=== PATIENT | female | born 1990 | race Caucasian/White ===

== ENCOUNTER 2020-10-30 13:33 | Outpatient (REF) | payer OTHER, SELFPAY ==
[2020-11-01 13:31] LABS: SARS-COV-2 PCR UMBRL Not Detected
[2020-11-07 10:14] LABS: SARS-COV-2 PCR UMBRL NEGATIVE
[2020-11-14 08:50] LABS: SARS-COV-2 PCR UMBRL NEGATIVE
[2020-11-21 08:51] LABS: SARS-COV-2 PCR UMBRL NEGATIVE
[2020-11-28 09:59] LABS: SARS-COV-2 PCR UMBRL NEGATIVE
[2020-12-06 08:49] LABS: SARS-COV-2 PCR UMBRL NEGATIVE
[2020-12-12 13:21] LABS: SARS-COV-2 PCR UMBRL NEGATIVE
[2020-12-19 08:59] LABS: SARS-COV-2 PCR UMBRL NEGATIVE
[2020-12-25 09:04] LABS: SARS-COV-2 PCR UMBRL NEGATIVE
[2021-01-02 08:51] LABS: SARS-COV-2 PCR UMBRL NEGATIVE
[2021-01-08 09:37] LABS: SARS-COV-2 PCR UMBRL NEGATIVE
[2021-01-16 09:36] LABS: SARS-COV-2 PCR UMBRL NEGATIVE
[2021-01-24 08:26] LABS: SARS-COV-2 PCR UMBRL NEGATIVE
[2021-01-29 08:06] LABS: SARS-COV-2 PCR UMBRL NEGATIVE
[2021-02-06 07:34] LABS: SARS-COV-2 PCR UMBRL NEGATIVE
[2021-02-14 07:52] LABS: SARS-COV-2 PCR UMBRL NEGATIVE
[2021-02-23 08:23] LABS: SARS-COV-2 PCR UMBRL NEGATIVE
[2021-02-28 12:33] LABS: SARS-COV-2 PCR UMBRL NEGATIVE
[2021-03-13 09:21] LABS: SARS-COV-2 PCR UMBRL NEGATIVE
[2021-03-24 08:51] LABS: SARS-COV-2 PCR UMBRL NEGATIVE
[2021-03-28 07:51] LABS: SARS-COV-2 PCR UMBRL NEGATIVE
[2021-04-18 08:26] LABS: SARS-COV-2 PCR UMBRL NEGATIVE
[2021-04-26 12:17] LABS: SARS-COV-2 PCR UMBRL NEGATIVE
[2021-05-03 07:43] LABS: SARS-COV-2 PCR UMBRL NEGATIVE
[2021-05-09 08:33] LABS: SARS-COV-2 PCR UMBRL NEGATVE
[2021-05-20 09:53] LABS: SARS-COV-2 PCR UMBRL NEGATIVE
[2021-05-21 08:01] LABS: SARS-COV-2 PCR UMBRL NEGATIVE
[2021-05-28 09:23] LABS: SARS-COV-2 PCR UMBRL NEGATIVE
[2021-06-05 07:51] LABS: SARS-COV-2 PCR UMBRL NEGATIVE
[2021-06-12 07:28] LABS: SARS-COV-2 PCR UMBRL NEGATIVE
== END 2020-10-30 13:34 | disposition home or self-care (01) ==
LOC: HO.EMPCOV 13:33
PROVIDERS: Visit Provider Internal Medicine
DX: Z20.822 Contact with and (suspected) exposure to COVID-19 (principal)
CPT/HCPCS: 36415; U0003

== ENCOUNTER 2020-11-14 09:04 | Outpatient (REF) | payer OTHER, SELFPAY ==
[2020-11-14 11:12] LABS: MANUAL DIFF FLAG NO
[2020-11-14 11:16] LABS: Basophils Percent Auto 0.6 % (0-2); Eosinophils Absolute Auto 0.1 X10*3/uL (0.0-0.4); Eosinophils Percent Auto 1.7 % (0-4); Hematocrit 42.5 % (37-47); Hemoglobin 13.8 g/dl (12.0-16.0); Lymphocytes Absolute Auto 1.3 X10*3/uL (1.2-4.9); Lymphocytes Percent Auto 36.9 % (20-40); Mean Corpuscular HGB Conc 32.5 g/dl (31.0-35.0); Mean Corpuscular Hemoglobin 27.4 pg (27.0-33.0); Mean Corpuscular Volume 84.5 fL (80-98); Mean Platelet Volume 11.8 fL (9.4-12.3); Monocytes Absolute Auto 0.3 X10*3/uL (0.1-1.2); Monocytes Percent Auto 9.7 % (2-11); Neutrophils Absolute Auto 1.8 X10*3/uL (2.0-8.3); Neutrophils Percent Auto 51.1 % (45-73); Platelet Count 155 X10*3/uL (160-400); Red Blood Count 5.03 X10*6/uL (4.20-5.50); Red Cell Distribution Width 13.1 % (11.0-16.0); White Blood Count 3.5 X10*3/uL (4.8-10.8)
[2020-11-14 11:31] LABS: Anion Gap 11 (12-20); Blood Urea Nitrogen 13 mg/dL (9-16); Carbon Dioxide 26 mmol/L (22-29); Chloride 105 mmol/L (96-108); Cholesterol 153 mg/dL; Estimated Glomerular Filt Rate > 60; Glucose Fasting 86 mg/dL (60-99); HDL Cholesterol 58 mg/dL; LDL Cholesterol Calculated 88 mg/dl; Sodium 138 mmol/L (135-145); Triglycerides 39 mg/dL
== END 2020-11-14 09:05 | disposition home or self-care (01) ==
LOC: HO.HMGCLDS 09:04
PROVIDERS: PCP Internal Medicine; Visit Provider Internal Medicine
DX: Z00.00 Encounter for general adult medical examination without abnormal findings (principal); Z01.419 Encounter for gynecological examination (general) (routine) without abnormal findings; I10 Essential (primary) hypertension
CPT/HCPCS: 36415; 80048; 80061; 85025

== ENCOUNTER 2020-11-22 11:46 | Outpatient (REF) | payer OTHER, SELFPAY ==
--- NOTE | ~2020-11-22 | XR_ITS ---
EXAMINATION: XR SHOULDER, RIGHT CLINICAL INFORMATION: Right shoulder pain COMPARISON: None TECHNIQUE: Three views of the right shoulder. FINDINGS: No fracture or dislocation. The glenohumeral joint is well aligned. The joint space is maintained. The acromioclavicular joint is intact. The visualized lung is clear. The visualized ribs are intact. XR/XR shoulder RT min 2V IMPRESSION: Normal right shoulder.
--- NOTE | ~2020-11-22 | XR_ITS ---
EXAMINATION: XR CERVICAL SPINE CLINICAL INFORMATION: Cervicalgia COMPARISON: None TECHNIQUE: 5 views of the cervical spine were obtained. FINDINGS: There are no prevertebral soft tissue or bony abnormalities demonstrated. No compression fractures or subluxations are identified. Alignment is maintained at the atlanto-axial articulation. The disc spaces are preserved. No endplate changes are seen. The prevertebral soft tissues are normal. The foramina are patent. Lung apices are clear. XR/XR cervical spine 4V IMPRESSION: Normal appearance of the cervical spine.
== END 2020-11-22 11:47 | disposition home or self-care (01) ==
LOC: HO.HMGCX 11:46
PROVIDERS: PCP Internal Medicine; Visit Provider Internal Medicine
DX: M54.9 Dorsalgia, unspecified (principal); M25.511 Pain in right shoulder; M54.2 Cervicalgia
CPT/HCPCS: 72050; 73030

== ENCOUNTER 2021-02-11 11:09 | Outpatient (REF) | payer OTHER, SELFPAY ==
[2021-02-13 19:46] LABS: TS Negative Control Passed; TS Panel A 0; TS Panel B 1; TS Positive Control Passed; TSpotTB Negative (SeeBelow)
== END 2021-02-11 11:10 | disposition home or self-care (01) ==
LOC: HO.HMGCLDS 11:09
PROVIDERS: PCP Internal Medicine; Visit Provider Internal Medicine
DX: Z11.1 Encounter for screening for respiratory tuberculosis (principal)
CPT/HCPCS: 36415; 86481

== ENCOUNTER 2021-03-20 07:07 | Outpatient (REF) | payer OTHER, SELFPAY ==
[2021-03-20 12:23] LABS: ~Hepatitis B Surface Antibody REACTIVE (Nonreactive)
[2021-03-21 17:26] LABS: Rubeola IgG (Measles) >300.00 AU/mL
== END 2021-03-20 07:08 | disposition home or self-care (01) ==
LOC: HO.HMGCLDS 07:07
PROVIDERS: PCP Internal Medicine; Visit Provider Internal Medicine
DX: Z01.84 Encounter for antibody response examination (principal)
CPT/HCPCS: 36415; 86706; 86735; 86762; 86765; 86787

== ENCOUNTER 2022-11-20 09:56 | Outpatient (REF) | payer OTHER, SELFPAY ==
[2022-11-22 19:49] LABS: TS Negative Control Passed; TS Panel A 0; TS Panel B 0; TS Positive Control Passed; TSpotTB Negative (Negative)
== END 2022-11-20 09:57 | disposition home or self-care (01) ==
LOC: HO.HMGCLDS 09:56
PROVIDERS: PCP Internal Medicine; Visit Provider Internal Medicine
DX: Z11.1 Encounter for screening for respiratory tuberculosis (principal)
CPT/HCPCS: 36415; 86481

== ENCOUNTER 2022-12-01 11:10 | Outpatient (REF) | payer OTHER, SELFPAY ==
[2022-12-01 11:57] LABS: Influenza A PCR NEGATIVE (Negative); Influenza B PCR NEGATIVE (Negative); Resp Syncy Virus RNA Qual PCR NEGATIVE (Negative); SARS COV2 PCR INHOUSE NEGATIVE (Negative)
== END 2022-12-01 11:11 | disposition home or self-care (01) ==
LOC: HO.LNP 11:10
PROVIDERS: Visit Provider Physician Assistant
DX: Z20.822 Contact with and (suspected) exposure to COVID-19 (principal); B34.9 Viral infection, unspecified
CPT/HCPCS: 0241U

== ENCOUNTER → 2023-01-15 10:57 | Outpatient (BNVA) | payer OTHER, SELFPAY | PROVIDERS: PCP Internal Medicine; Visit Provider Advanced Practice Midwife | DX: Z13.89 Encounter for screening for other disorder (principal) ==

== ENCOUNTER 2023-02-20 13:20 | Outpatient (REF) | payer OTHER, SELFPAY ==
[2023-02-20 14:07] LABS: MANUAL DIFF FLAG NO
[2023-02-20 14:15] LABS: Basophils Percent Auto 0.5 % (0-2); Eosinophils Percent Auto 1.1 % (0-4); Hematocrit 32.7 % (37.0-47.0); Hemoglobin 9.7 g/dl (12.0-16.0); Imm Gran Abs Auto 0.01 X10*3/uL (0.00-0.03); Imm Gran Pct Auto 0.3 % (0.0-0.4); Lymphocytes Absolute Auto 1.3 X10*3/uL (1.2-4.9); Lymphocytes Percent Auto 33.8 % (20-40); Mean Corpuscular HGB Conc 29.7 g/dl (31.0-35.0); Mean Corpuscular Hemoglobin 20.3 pg (27.0-33.0); Mean Corpuscular Volume 68.6 fL (80.0-98.0); Mean Platelet Volume 11.1 fL (9.4-12.3); Monocytes Absolute Auto 0.4 X10*3/uL (0.1-1.2); Monocytes Percent Auto 9.5 % (2-11); Neutrophils Percent Auto 54.8 % (45-73); Platelet Count 171 X10*3/uL (160-400); Red Blood Count 4.77 X10*6/uL (4.20-5.50); Red Cell Distribution Width 18.8 % (11.0-16.0); White Blood Count 3.7 X10*3/uL (4.8-10.8)
[2023-02-20 14:41] LABS: Alanine Aminotransferase 22 U/L (0-31); Alkaline Phosphatase 63 U/L (39-117); Anion Gap 11 (12-20); Aspartate Amino Transferase 18 U/L (5-31); Bilirubin Total 0.8 mg/dL (0.0-1.0); Blood Urea Nitrogen 9 mg/dL (9-16); Calcium 8.9 mg/dL (8.4-10.2); Carbon Dioxide 24 mmol/L (22-29); Chloride 107 mmol/L (96-108); Cholesterol 137 mg/dL; Estimated Glomerular Filt Rate > 60; Glucose Fasting 82 mg/dL (60-99); HDL Cholesterol 57 mg/dL; LDL Cholesterol Calculated 75 mg/dl; Magnesium 1.9 mg/dL (1.6-2.6); Potassium 3.7 mmol/L (3.3-5.1); Sodium 138 mmol/L (135-145); Total Protein 6.7 g/dL (6.5-8.0); Triglycerides 26 mg/dL
[2023-02-20 15:10] LABS: Folate 13.5 ng/mL (> or = 4.0); TSH reflex Free T4 1.37 uIU/mL (0.32-4.0); Vitamin B12 405 pg/mL (200-900); Vitamin D 25-OH Total 18.2 ng/mL (>30)
== END 2023-02-20 13:21 | disposition home or self-care (01) ==
LOC: HO.HMGCLDS 13:20
PROVIDERS: PCP Internal Medicine; Visit Provider Internal Medicine
DX: Z00.01 Encounter for general adult medical examination with abnormal findings (principal); G47.62 Sleep related leg cramps
CPT/HCPCS: 36415; 80053; 80061; 82306; 82607; 82746; 83735; 84443; 85025

== ENCOUNTER 2023-03-31 15:45 | Outpatient (REF) | payer OTHER, SELFPAY ==
[2023-04-01 14:28] LABS: CT PCR NOT DETECTED (Not Detect.); NG PCR NOT DETECTED (Not Detect.)
[2023-04-02 09:20] LABS: BV Int Neg Control Negative (Negative); BV Int Pos Control Positive (Positive)
== END 2023-03-31 15:46 | disposition home or self-care (01) ==
LOC: HO.LNP 15:45
PROVIDERS: PCP Internal Medicine; Visit Provider Advanced Practice Midwife
DX: O21.9 Vomiting of pregnancy, unspecified (principal); Z20.2 Contact with and (suspected) exposure to infections with a predominantly sexual mode of transmission
CPT/HCPCS: 0353U; 81003; 81025; 87480; 87510; 87660

== ENCOUNTER 2023-03-31 21:47 | Emergency (ER) | payer OTHER, SELFPAY ==
[2023-03-31 22:18] VITALS: BP 112/74; PULSE 70; RESP 18; TEMP 36.9; O2SAT 98; BMI 20.7
[2023-03-31 22:57] LABS: Hematocrit 30.2 % (37.0-47.0); Mean Corpuscular HGB Conc 29.8 g/dl (31.0-35.0); Mean Corpuscular Hemoglobin 20.2 pg (27.0-33.0); Mean Corpuscular Volume 67.9 fL (80.0-98.0); Mean Platelet Volume 10.6 fL (9.4-12.3); Platelet Count 167 X10*3/uL (160-400); Red Blood Count 4.45 X10*6/uL (4.20-5.50); Red Cell Distribution Width 18.2 % (11.0-16.0); White Blood Count 5.4 X10*3/uL (4.8-10.8)
[2023-03-31 23:15] LABS: Alanine Aminotransferase 20 U/L (0-31); Albumin Level 3.7 g/dL (3.5-5.0); Alkaline Phosphatase 51 U/L (39-117); Anion Gap 8 (12-20); Aspartate Amino Transferase 17 U/L (5-31); Bilirubin Total 0.2 mg/dL (0.0-1.0); Blood Urea Nitrogen 13 mg/dL (9-16); Calcium 8.8 mg/dL (8.4-10.2); Carbon Dioxide 24 mmol/L (22-29); Chloride 108 mmol/L (96-108); Creatinine Clr Calc Pharmacy 135.7; Estimated Glomerular Filt Rate > 60; Glucose Random 83 mg/dL (60-115); Lipase 17 U/L (8-78); Potassium 3.7 mmol/L (3.3-5.1); Sodium 136 mmol/L (135-145); Total Protein 6.8 g/dL (6.5-8.0)
[2023-03-31 23:39] LABS: Appearance Urine Clear; Color Urine Yellow; Glucose Urine UA Negative (Negative); Leukocyte Esterase Urine Negative (Negative); Nitrite Urine Negative (Negative); Urine Blood Negative (Negative); Urine Ketones Negative (Negative); Urine Protein Negative (Neg-Trace)
[2023-03-31 23:43] LABS: HCG Quantitative > 225000 mIU/mL
[2023-04-01 00:01] VITALS: BP 111/74; PULSE 77; RESP 17; TEMP 36.7; O2SAT 99
--- NOTE | 2023-04-01 00:53 | PC.NURSE ---
patient in bed with eyes open patient vitals are stable at this time patient will be given patient will then be in the process of being discharged
[2023-04-01] MEDS: Magnesium Hydrox/Alum Hydrox 30 ML ORAL.SUSP PO (00:58)
[2023-04-01] MEDS: Ondansetron ODT 4 MG TAB.RAPDIS TRANSLINGU (00:58)
[2023-04-01] MEDS: Lidocaine HCl Viscous 2 % 15 ML SOLUTION MUCOUS MEM (00:58)
--- NOTE | 2023-04-01 00:59 | PC.NURSE ---
patient received the medication with no issues doctor will be notified
--- NOTE | 2023-04-01 01:00 | ED_ITS ---
HPI - General Adult General Chief complaint: Abdominal Pain Stated complaint: fishing line winding machine operator called, wants blood work/ ultrasound? Time Seen by Provider: 04/01/23 00:43 Source: patient, RN notes reviewed and old records reviewed Mode of arrival: ambulatory Limitations: no limitations History of Present Illness HPI narrative: 32-year-old female presents for evaluation of abdominal pain. Patient reports that her pain started 5 days ago in the left upper abdomen She reports at the time she was having lots of vomiting This has since resolved Patient reports her pain is worse at night She describes as stabbing in nature She saw her fishing line winding machine operator today as she is reports approximately 7-8 weeks She had a pelvic examination done and wanted the patient to be evaluated for other causes of abdominal pain as ?she said my pain was too high to be related to the baby. ? Her pain is a 5/10 Denies any vaginal bleeding or discharge Related Data Home Medications Medication Instructions Recorded Confirmed acetaminophen 500 mg tablet 1,000 mg PO Q6H PRN 02/22/22 01/20/23 (Tylenol Extra Strength) Previous Rx's Medication Instructions Recorded fexofenadine 180 mg tablet 180 mg PO Q24H #30 tabs 08/06/22 (Allergy Relief (fexofenadine)) pyridoxine (vitamin B6) 25 mg 25 mg PO TID PRN nausea and 03/31/23 tablet (Vitamin B-6) vomiting #90 tabs Allergies Allergy/AdvReac Type Severity Reaction Status Date / Time cyclobenzaprine AdvReac Unknown dry mouth Verified 03/31/23 15:55 and vertigo Review of Systems Cardiovascular: Cardiovascular: Denies chest pain and Denies dyspnea Respiratory: Respiratory: Denies cough and Denies dyspnea Gastrointestinal: Gastrointestinal: Reports abdominal pain, Reports nausea and Denies vomiting Genitourinary: Genitourinary: Denies abnormal vaginal bleeding Comments: Denies vaginal bleeding or discharge Musculoskeletal: Musculoskeletal: Denies back pain PMFSH Past Medical History Medical History (Updated 04/01/23 @ 01:18 by Donal Lozano) Left flank pain Migraine with aura Nausea and vomiting in Nocturnal leg cramps Positive test Recurrent headache Shoulder pain, right Upper back pain on right side Upper respiratory infection with cough and congestion Surgical History No pertinent past surgical history Family History Family History Father Heart disease Mother Diabetes mellitus HTN (hypertension) CVD (cardiovascular disease) Maternal Aunt Diabetes mellitus History of CVA (cerebrovascular accident) Brother No problems noted. Brother No problems noted. Brother No problems noted. Sister No problems noted. Sister No problems noted. Social History Social History Housing: Apartment Alcohol intake: never Patient Tobacco Use Status: Never used Tobacco Smoked in Last 30 Days: No e-Cigarette/Vaping Use: Never Used Use of substances other than those prescribed or required for medical reasons: No Advance Directives: No Advance Directives Information Provided: No Patient : Yes service: No Current occupational status: employed Sexual orientation: Straight/Heterosexual Gender identity: Female Cognitive needs: No Hearing needs: No Vision needs: No Physical Exam ED Vital Signs: Vital Signs - 24 hr 03/31/23 22:18 04/01/23 00:01 Temperature 98.5 F 98.0 F Pulse Rate 70 77 Respiratory Rate 18 17 Blood Pressure 112/74 111/74 Pulse Oximetry 98 99 Oxygen Delivery Method Room Air Room Air BMI result Body Mass Index 20.7 Const General: healthy appearing, comfortable, no acute distress, alert and awake Nutritional Appearance: well nourished Orientation/consciousness: patient oriented x3 HENMT Head: Yes normocephalic and Yes atraumatic Eyes Eyelids: Yes eyelids normal Conjunctivae: conjunctivae normal Sclerae: sclerae normal Corneas: corneas normal Pupils: Equal, round and reactive pupils present EOM: EOMs intact bilaterally Neck Neck: Yes full ROM Resp Effort & Inspection: normal respiratory effort, able to speak in complete sentences and not labored Cardio Rate: regular rate Rhythm: regular rhythm GI Inspection: No distended Palpation (GI): Soft to palpation, not firm, Tenderness to palpation present (GI) in the epigastrum and in the LUQ; not suprapubicly, no guarding and not rigid Auscultation: normoactive bowel sounds Skin General skin exam: no rashes or lesions noted and elasticity normal Neuro General: patient oriented x3 Cranial nerves: Yes Equal, round and reactive pupils present and Yes Bilaterally intact EOM present Cognition (Neuro): normal cognition Extrem Other: Moving all extremities well without any obvious deformities Medications Administered Discontinued Medications Generic Name Dose Route Start Last Admin Trade Name Dalton PRN Reason Stop Dose Admin Al Hydroxide/Mg Hydroxide 30 ml 04/01/23 00:49 04/01/23 00:58 Magnesium Hydrox/Alum Hydrox 30 Ml Oral.Susp PO 04/01/23 00:50 30 ml ONCE ONE Administration Lidocaine HCl 15 ml 04/01/23 00:49 04/01/23 00:58 Lidocaine Hcl Viscous 2 % 15 Ml Solution MUCOUS MEM 04/01/23 00:50 15 ml ONCE ONE Administration Ondansetron HCl 4 mg 04/01/23 00:50 04/01/23 00:58 Ondansetron Odt 4 Mg Tab.Rapdis TRANSLINGU 04/01/23 00:51 4 mg ONCE ONE Administration Medical Decision Making Medical Decision Making [facility] Narrative: Patient presents for evaluation of left upper abdominal pain. She has tenderness left upper quadrant. Pain is worse at night. She has had the pain for 5 days. This is not a consistent story for ectopic . However I did recommend getting a pelvic exam to check for adnexal tenderness. The patient declined this as she states her fishing line winding machine operator perform this exam earlier today and told her that her pain was too far away from the baby. The patient has no risk factors for ectopic . Given the have a very low suspicion for ectopic , the patient may follow up with an outpatient pelvic ultrasound. She understands to return for new or worsening symptoms. She reported mild improvement with GI cocktail Differential Diagnosis Abdominal pain Gastritis Gastroenteritis Peptic ulcer disease Constipation Obstructive uropathy Pyelonephritis Ectopic Lab Data [facility] Lab Attestation statement: I reviewed the patient's lab results. 03/31/23 22:47 03/31/23 22:47 Labs: Lab Results 03/31/23 03/31/23 03/31/23 Range/Units 22:47 22:47 22:47 WBC 5.4 (4.8-10.8) X10*3/uL RBC 4.45 (4.20-5.50) X10*6/uL Hgb 9.0 L (12.0-16.0) g/dl Hct 30.2 L (37.0-47.0) % MCV 67.9 L (80.0-98.0) fL MCH 20.2 L (27.0-33.0) pg MCHC 29.8 L (31.0-35.0) g/dl RDW 18.2 H (11.0-16.0) % Plt Count 167 (160-400) X10*3/uL MPV 10.6 (9.4-12.3) fL Absolute Nucleated RBC 0.000 (0.0-0.012) X10*3/uL Nucleated RBC % (auto) 0.0 (0.0-0.2) /100WBC Sodium 136 (135-145) mmol/L Potassium 3.7 (3.3-5.1) mmol/L Chloride 108 (96-108) mmol/L Carbon Dioxide 24 (22-29) mmol/L Anion Gap 8 L (12-20) BUN 13 (9-16) mg/dL Creatinine 0.54 (0.5-1.4) mg/dL Estim Creat Clear Calc 135.7 Estimated GFR > 60 Random Glucose 83 (60-115) mg/dL Calcium 8.8 (8.4-10.2) mg/dL Total Bilirubin 0.2 (0.0-1.0) mg/dL AST 17 (5-31) U/L ALT 20 (0-31) U/L Alkaline Phosphatase 51 (39-117) U/L Total Protein 6.8 (6.5-8.0) g/dL Albumin 3.7 (3.5-5.0) g/dL Lipase 17 (8-78) U/L Beta HCG, Quant > 950629 mIU/mL Urine Color Urine Appearance Urine pH (5.0-9.0) Ur Specific [place] (1.005-1.025) Urine Protein (Neg-Trace) mg/dL Urine Glucose (UA) (Negative) mg/dL Urine Ketones (Negative) mg/dL Urine Blood (Negative) Urine Nitrite (Negative) Ur Leukocyte Esterase (Negative) 03/31/23 Range/Units 23:32 WBC (4.8-10.8) X10*3/uL RBC (4.20-5.50) X10*6/uL Hgb (12.0-16.0) g/dl Hct (37.0-47.0) % MCV (80.0-98.0) fL MCH (27.0-33.0) pg MCHC (31.0-35.0) g/dl RDW (11.0-16.0) % Plt Count (160-400) X10*3/uL MPV (9.4-12.3) fL Absolute Nucleated RBC (0.0-0.012) X10*3/uL Nucleated RBC % (auto) (0.0-0.2) /100WBC Sodium (135-145) mmol/L Potassium (3.3-5.1) mmol/L Chloride (96-108) mmol/L Carbon Dioxide (22-29) mmol/L Anion Gap (12-20) BUN (9-16) mg/dL Creatinine (0.5-1.4) mg/dL Estim Creat Clear Calc Estimated GFR Random Glucose (60-115) mg/dL Calcium (8.4-10.2) mg/dL Total Bilirubin (0.0-1.0) mg/dL AST (5-31) U/L ALT (0-31) U/L Alkaline Phosphatase (39-117) U/L Total Protein (6.5-8.0) g/dL Albumin (3.5-5.0) g/dL Lipase (8-78) U/L Beta HCG, Quant mIU/mL Urine Color Yellow Urine Appearance Clear Urine pH 7.0 (5.0-9.0) Ur Specific [place] 1.010 (1.005-1.025) Urine Protein Negative (Neg-Trace) mg/dL Urine Glucose (UA) Negative (Negative) mg/dL Urine Ketones Negative (Negative) mg/dL Urine Blood Negative (Negative) Urine Nitrite Negative (Negative) Ur Leukocyte Esterase Negative (Negative) Discharge Plan Discharge Clinical Impression: Acute upper abdominal pain Patient Disposition: Home, Self-Care Instructions: Abdominal Pain in (ED) Additional Instructions: Your blood work was reassuring today. Your urine sample did not show signs of blood or infection Unfortunately we do not have ultrasound available at night Follow-up with your OBGYN for outpatient ultrasound or return tomorrow tax staff accountant per minute opinion to have pelvic ultrasound. However your pain today seems much too high to be related to an ectopic Take Tylenol as needed for abdominal pain Prescriptions: No Action fexofenadine [Allergy Relief (fexofenadine)] 180 mg tablet 180 mg PO Q24H Qty: 30 0RF acetaminophen [Tylenol Extra Strength] 500 mg tablet 1,000 mg PO Q6H PRN pyridoxine (vitamin B6) [Vitamin B-6] 25 mg tablet 25 mg PO TID PRN (Reason: nausea and vomiting) Qty: 90 3RF Rx Instructions: may take every 6-8 hours for nausea Stand Alone Forms: Work/School Release
[2023-04-01 01:16] VITALS: BP 119/73; PULSE 75; RESP 17; TEMP 37; O2SAT 99
--- NOTE | 2023-04-01 01:22 | PC.NURSE ---
patient in the process of being discharged
== END 2023-04-01 01:25 | disposition home or self-care (01) ==
PROVIDERS: Emergency Provider Internal Medicine; PCP Internal Medicine
DX: O26.891 Other specified pregnancy related conditions, first trimester (principal); R10.10 Upper abdominal pain, unspecified; Z3A.00 Weeks of gestation of pregnancy not specified
CPT/HCPCS: 36415; 80053; 81003; 83690; 84702; 85027; 99283; 99284

== ENCOUNTER 2023-04-02 13:24 | Outpatient (REF) | payer OTHER, SELFPAY ==
--- NOTE | ~2023-04-02 | US_ITS ---
EXAMINATION: US OBSTETRICAL ULTRASOUND CLINICAL INFORMATION: Irregular menstruation. COMPARISON: None available. LMP: 01/29/2023. Gestational age by maternal dates is 9 weeks and 0 days Estimated date of delivery by maternal dates is 11/05/2023. TECHNIQUE: Routine transabdominal imaging of pelvis is performed. FINDINGS: There is a single intrauterine gestational sac with visible yolk sac, embryo/fetus, and cardiac activity. There is no significant subchorionic hemorrhage or hematoma. HR: 174 beats per minute. CRL (crown rump length): 2.63 cm (9 weeks and 3 days +/- 4 days). ANYI (estimated date of delivery): 11/02/2023 +/- 4 days. MATERNAL ADNEXA: The right maternal ovary measures 3.8 x 2.2 x 2.6 cm. There is an anechoic cyst versus dominant follicle measuring 1.9 x 1.6 x 1.4 cm. The left maternal ovary measures 2.9 1.7 x 3.2 cm cm. No focal lesion seen. There is no significant maternal adnexal mass. No maternal pelvic ascites. US/US OB <= 14 weeks fetus IMPRESSION: 1. Single intrauterine gestation with ultrasound gestational age of 9 weeks and 3 days +/- 4 days. 2. Estimated date of delivery is 11/02/2023 +/- 4 days. 3. No maternal adnexal mass or pelvic ascites.
== END 2023-04-02 13:25 | disposition home or self-care (01) ==
LOC: HO.US 13:24
PROVIDERS: PCP Internal Medicine; Visit Provider Advanced Practice Midwife
DX: N92.6 Irregular menstruation, unspecified (principal)
CPT/HCPCS: 76801

== ENCOUNTER → 2023-04-16 10:03 | Outpatient (BNVA) | payer OTHER, SELFPAY | PROVIDERS: PCP Internal Medicine; Visit Provider Advanced Practice Midwife | DX: O26.891 Other specified pregnancy related conditions, first trimester (principal); R11.2 Nausea with vomiting, unspecified; O99.810 Abnormal glucose complicating pregnancy; Z3A.11 11 weeks gestation of pregnancy; Z83.3 Family history of diabetes mellitus | CPT/HCPCS: 99212 ==

== ENCOUNTER 2023-05-02 10:22 | Outpatient (REF) | payer OTHER, SELFPAY ==
[2023-05-02 11:04] LABS: Hematocrit 35.6 % (37.0-47.0); Hemoglobin 10.7 g/dl (12.0-16.0); Mean Corpuscular HGB Conc 30.1 g/dl (31.0-35.0); Mean Corpuscular Hemoglobin 21.2 pg (27.0-33.0); Mean Corpuscular Volume 70.5 fL (80.0-98.0); Mean Platelet Volume 10.2 fL (9.4-12.3); Platelet Count 157 X10*3/uL (160-400); Red Blood Count 5.05 X10*6/uL (4.20-5.50); Red Cell Distribution Width 22.9 % (11.0-16.0)
[2023-05-02 11:35] LABS: Amphetamine Screen Urine Not Detected (Not Detect); Barbiturates, Urine Not Detected (Not Detect); Benzodiazepines Screen Urine Not Detected (Not Detect); Cannabinoid Screen Urine Not Detected (Not Detect); Cocaine Screen Urine Not Detected (Not Detect); Fentanyl, urine Not Detected (Not Detect); Opiate Screen Urine Not Detected (Not Detect); Phencyclidine Screen Urine Not Detected (Not Detect)
[2023-05-04 04:56] LABS: HBsAGNum1 0.22 S/CO (0.00-0.99); HIV AB/AG Nonreactive (Nonreactive); HIV Num 1 0.05 S/CO (0.00-0.99); Hepatitis B Surface Antigen Negative (Negative); ~HepC Num1 0.09 S/CO (0.00-0.79); ~Hepatitis C Antibody Nonreactive (Nonreactive)
[2023-05-04 05:07] LABS: Syphilis Screen Nonreactive (Nonreactive)
[2023-05-05 02:27] LABS: Varicella IgG Antibody >4000.00 index
[2023-05-05 12:58] LABS: Rubella IgG Antibody 6.34 Index
[2023-05-12 00:54] LABS: CF Ethnicity HISPANIC; Cystic Fibrosis NEGATIVE (NEGATIVE)
== END 2023-05-02 10:23 | disposition home or self-care (01) ==
LOC: HO.LAB 10:22
PROVIDERS: PCP Internal Medicine; Visit Provider Advanced Practice Midwife
DX: Z34.91 Encounter for supervision of normal pregnancy, unspecified, first trimester (principal); R82.90 Unspecified abnormal findings in urine
CPT/HCPCS: 80307; 81220; 81508; 85027; 86762; 86780; 86787; 86803; 86850; 86900; 87086; 87340; 87389

== ENCOUNTER 2023-05-18 13:10 | Outpatient (REF) | payer OTHER, SELFPAY ==
[2023-05-19 05:44] LABS: CT PCR NOT DETECTED (Not Detect.); NG PCR NOT DETECTED (Not Detect.)
[2023-05-19 14:17] LABS: BV Int Neg Control Negative (Negative); BV Int Pos Control Positive (Positive)
[2023-05-21 22:18] LABS: HPV mRNA E6/E7 rflx Not Detected (Not Detected)
== END 2023-05-18 13:11 | disposition home or self-care (01) ==
LOC: HO.LNP 13:10
PROVIDERS: PCP Internal Medicine; Visit Provider Advanced Practice Midwife
DX: O99.012 Anemia complicating pregnancy, second trimester (principal); O26.892 Other specified pregnancy related conditions, second trimester; R35.0 Frequency of micturition; G47.62 Sleep related leg cramps; G43.109 Migraine with aura, not intractable, without status migrainosus; Z3A.15 15 weeks gestation of pregnancy; Z79.899 Other long term (current) drug therapy
CPT/HCPCS: 0353U; 81003; 87086; 87480; 87510; 87624; 87660; 88142; 99212

== ENCOUNTER 2023-05-18 13:10 | Outpatient (AMB) | payer OTHER, SELFPAY ==
--- NOTE | 2023-05-18 13:15 | A.OFFVIS_ITS ---
Intake Vital Signs 05/18/23 13:17 Height 5 ft 6 in Weight 131 lb BMI 21.1 BP 118/66 Intake Visit Reasons: ob/pe/DO NOT RS Traveling Secretary Required: No Information Interpreted: non-clinical & clinical Bowling Ball Assembler: Bowling Ball Assembler Present (Andrew) Allergies cyclobenzaprine Adverse Reaction (Unknown, Verified 05/18/23 13:19) dry mouth and vertigo Is last menstrual period known: Yes Last menstrual period: 01/29/23 Post menopausal: No Patient : Yes PFSH Medical History Migraine with aura Nocturnal leg cramps Recurrent headache Upper back pain on right side Surgical History No pertinent past surgical history Family History Father Heart disease Mother Diabetes mellitus HTN (hypertension) CVD (cardiovascular disease) Maternal Aunt Diabetes mellitus History of CVA (cerebrovascular accident) Brother No problems noted. Brother No problems noted. Brother No problems noted. Sister No problems noted. Sister No problems noted. Social History Housing: Apartment Alcohol intake: never Patient Tobacco Use Status: Never used Tobacco e-Cigarette/Vaping Use: Never Used Patient : Yes service: No Current occupational status: employed Sexual orientation: Straight/Heterosexual Gender identity: Female Cognitive needs: No Hearing needs: No Vision needs: No Female Reproductive History Menstrual Age of Menarche: 15 Duration of menses: 6-7 days Date of last menstrual period: 01/29/23 control method: none Total pregnancies: 1 Physical Exam Vital Signs: BMI result Body Mass Index 21.1 Coding Diagnoses
[2023-05-18 13:17] VITALS: BP 118/66; BMI 21.1
--- NOTE | 2023-05-18 13:34 | A.OFFVISPN_ITS ---
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 Third Class Required: No Information Interpreted: non-clinical & clinical House Nurse: House Nurse Present (Andrew) Allergies cyclobenzaprine Adverse Reaction (Unknown, Verified 05/18/23 13:19) dry mouth and vertigo Medication List - Last Reconciled 05/18/23 by Sheryl Murray CNM acetaminophen (Tylenol Extra Strength) 1,000 mg PO Q6H PRN ferrous sulfate 325 mg PO BID 30 days PNV,calcium 62-tiit-[id number] acid 27 mg iron- 1 mg ( Vitamins Plus Low Iron) 1 tab PO DAILY 90 days pyridoxine (vitamin B6) (Vitamin B-6) 25 mg PO TID PRN Is last menstrual period known: Yes Last menstrual period: 01/29/23 Post menopausal: No Patient : Yes PFSH Medical History (Updated 05/18/23 @ 14:37 by Sheryl Murray CNM) Migraine with aura Nocturnal leg cramps Recurrent headache Upper back pain on right side Surgical History No pertinent past surgical history Family History Father Heart disease Mother Diabetes mellitus HTN (hypertension) CVD (cardiovascular disease) Maternal Aunt Diabetes mellitus History of CVA (cerebrovascular accident) Brother No problems noted. Brother No problems noted. Brother No problems noted. Sister No problems noted. Sister No problems noted. Social History Housing: Apartment Alcohol intake: never Patient Tobacco Use Status: Never used Tobacco e-Cigarette/Vaping Use: Never Used service: No Current occupational status: employed Sexual orientation: Straight/Heterosexual Gender identity: Female Cognitive needs: No Hearing needs: No Vision needs: No Female Reproductive History Menstrual Age of Menarche: 15 Duration of menses: 6-7 days Date of last menstrual period: 01/29/23 control method: none Total pregnancies: 1 History History 1 Elective abortions 0 Para 0 Spontaneous abortions 0 Hx # Term Pregnancies 0 Ectopic pregnancies 0 Hx # Pregnancies 0 Multiple births 0 Questionnaire History History : 1 [place] Depression [place] Depression Scale I have been able to laugh and see the funny side of things: As much as I always could I have looked forward with enjoyment to things: As much as I ever did I have blamed myself unnecessarily when things went wrong: No, never I have been anxious or worried for no reason: No, not at all I have felt scared of panicky for no very good reason at all: No, not at all Things have been getting on top of me: No, most of the time I have coped quite well I have been so unhappy that I have had difficulty sleeping: No, not at all I have felt sad or miserable: No, not at all I have been so unhappy that I have been crying: No, never The thought of harming myself has occurred to me: Never 1 PHQ Assessment Billing PHQ Assessment Tool: PHQ Assessment 92997 Visit ANYI Calculator Estimated Delivery Date Method Current WG Current Estimate 11/05/23 Ultrasound #1 15w 4d Other Estimates 11/05/23 LMP (Certain) 15w 4d Expected Delivery Route/Plan Vaginal delivery Specific Issues/Plans hx of migraines, fm hx of diabetes, early 1 hr gtt ordered,. hx of Anemia. OB Problem List: 32 yr. old ? ? G1 ?P0 ? ? ?LMP: 01/29/23 EDC: 11/05/23 ?by sure dates? ? ?Blood type: O pos Problem List: 1. migraines- has neurologist, on fioricet- rec only using if really necessary and prioritize water intake. 2.- ANEMIA- ON IRON BID NOW... 3. constipation w iron intake-discussed Testing: Panorama/and or First Tri screen: ? ?risklow risk for downs and tri 18. NT scan: wnl AFP: FAS: Glucose: early still pending, 05/18? 28 wk glucose: ? CBC 1st Tri: ? 28 wk. CBC: GBS: Vaccinations: Flu: Covid: Tdap: Education/Services WIC: CBE: Breast feeding classes: Social Supports/Stressors: Living situation: Supports: Work/school: Transportation: Labor, and Concerns: Labor support: Plan: Feeding Plans: breast- initial teaching do 7 control: OB Visit Log Initial Weight: 120 lb Date -?-?-?-?-?-?-?-?-?-?-?-?- EGA Weight Gest Week Fundal Ht Present FHR move Efface % Edema BP PrePreg We Weight GTT -?-?-?-?-?-?-?-?-?-?-?-?- Glucose LV Protein Blood Type 04/16/23 -?-?-?-?-?-?-?-?-?-?-?-?- 11w 0d 127 lb 2 oz (+7 lb 2 oz) 1 27 lb 2 oz -?-?-?-?-?-?-?-?-?-?-?-?- 05/18/23 -?-?-?-?-?-?-?-?-?-?-?-?- 15w 4d 131 lb (+11 lb) 15 150 active 118/66 131 lb -?-?-?-?-?-?-?-?-?-?-?-?- Notes Visit Date: 05/18/23 Last Updated by: Sheryl Murray CNM Patient is here for an initial visit at 15 weeks and 4 days. She says she has never had a Pap smear she tried a few years ago but she was too tense and scared and could not allow for it to happen. She is and this is a planned and she is very happy. She has been feeling a little bit bett er from the nausea she does not need to take the vitamin B6 anymore she recently started iron twice a day for the anemia she did is constipated when she takes it but she is eating lots of healthy fresh fruits and vegetables and also taking prune a lax, which is helping. 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 She has not done the sugar test yet because she was nauseous and she is waiting to feel little bit better. Discussed testing evaluations process changes that happen in her body including what to expect for the future. Patient was tense with exam but was able to proceed with pelvic exam unable to reproduce a Kegel. Verbal teaching done. Discussed relaxation and normal see of labor and process and she is interested in classes and will check out [facility] classes as well as online. Initial teaching about and what to expect and how to help the baby get latched on with her well everted nipples done and recommend considering wick childbirth classes as well. RTC 4 weeks reviewed her nuchal translucency which was normal and her normal 1st trimester screening. Will order the anatomy ultrasound for around 20 weeks as well She it had a clean-catch urine with her in initial lab work which was negative however she needed to void with frequency here while she was here so we are sending a clean-catch urine from here as well. She tries to drink lots of water so she thinks that is what it is but were sending it just to be on the safe side. Additionally she complains of recurring the leg cramps at night. She has magnesium at home that she was taking for this in the past but she stopped bothering and I urged her to has restart it again but continue with her water intake as well because that will help with the headaches. Visit Date: 04/16/23 Last Updated by: Soco Prasad LPN Indira is here today for her gas maker at 11wks. G1, pt and her are very happy abut the . 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 She is having some nausea with a few episodes of vomiting. Pt is eating and drinking. She is eating healthy foods, veggies and fruits. She is on Vit B6, and feels it is helping her. Discussed with pt, to eat more frequent smaller amounts of food throughout the day. She will be getting her PNL labs drawn and early 1 hr gtt due to FH of diabetes., CF and UDS. Pt does not smoke , drink or use MJ. Discussed with pt, her u/s and delivery will be at [facility]. Discussed if any problems after hours, how to reach MD electrical installation supervisor, and to go to [facility] and not [facility] if needed. Pt is interested in childbirth classes in the 3rd trimester.OB physical scheduled. Discussed NT u/s genetic screen, orders sent to [facility] for appt. Discussed and given packet, she was advised to call with any questions or concerns. Results AMB Urinalysis, Automated UA Leukoctes 0 Jessie/uL Last Edit by Andrew Conrad Neha on 05/18/23 13:44 UA Nitrite Negative Last Edit by Andrew Conrad [facility] on 05/18/23 13:44 UA Urobilinogen 0 mg/dL Last Edit by Andrew Conrad [facility] on 05/18/23 13:44 UA Protein 0 mg/dL Last Edit by Andrew Conrad [facility] on 05/18/23 13:44 UA pH 5.5 Last Edit by Andrew Conrad [facility] on 05/18/23 13:44 UA Blood 0 Darinel/uL Last Edit by Andrew Conrad [facility] on 05/18/23 13:44 UA Specific [place] 1.030 Last Edit by Andrew Conrad [facility] on 05/18/23 13: 44 UA Ketone Negative Last Edit by Andrew Conrad [facility] on 05/18/23 13:44 UA Bilirubin 0 mg/dL Last Edit by Andrew Conrad [facility] on 05/18/23 13:44 UA Glucose 0 mg/dL Last Edit by Andrew Conrad [facility] on 05/18/23 13:44 Results Reviewed Results Reviewed: Laboratory Last Values Urine pH (Auto) 5.5 05/18/23 13:42 Specific [place] (Auto) 1.030 05/18/23 13:42 Urine Protein (Auto) 0 mg/dL 05/18/23 13:42 Glucose (UA)(Auto) 0 mg/dL 05/18/23 13:42 Urine Ketones (Auto) Negative 05/18/23 13:42 Urine Blood (Auto) 0 Darinel/uL 05/18/23 13:42 Urine Nitrite (Auto) Negative 05/18/23 13:42 Urine Bilirubin (Auto) 0 mg/dL 05/18/23 13:42 Urine Urobilinogen (Auto) 0 mg/dL 05/18/23 13:42 Leukocyte Esterase (Auto) 0 Jessie/uL 05/18/23 13:42 Assessment & Plan Assessment & Plan (1) Supervision of normal in second trimester: Code(s): Z34.92 - Encounter for supervision of normal , unspecified, second trimester Category: Medical (2) Nocturnal leg cramps: Code(s): G47.62 - Sleep related leg cramps Category: Medical (3) Migraine with aura: Code(s): G43.109 - Migraine with aura, not intractable, without status migrainosus Category: Medical (4) Encounter for screening for malformation using ultrasound: Code(s): Z36.3 - Encounter for screening for malformations Category: Medical Orders: Orders Urine Culture Today R35.0 - Frequency of micturition Bacterial Vaginosis Panel Today Z34.91 - Encounter for supervision of normal , unspecified, first trimester CT NG by PCR Today Z34.91 - Encounter for supervision of normal , unspecified, first trimester AMB Urinalysis Automated Today Z34.91 - Encounter for supervision of normal , unspecified, first trimester Pap Smear Today Z34.91 - Encounter for supervision of normal , unspecified, first trimester US OB /maternal detail 5 Weeks Z34.92 - Encounter for supervision of normal , unspecified, second trimester, Z36.3 - Encounter for screening for malformations Coding Level of Care Code [place] Diagnoses Supervision of normal in second trimester Z34.92 Nocturnal leg cramps G47.62 Migraine with aura G43.109 Encounter for screening for malformation using ultrasound Z36.3
== END 2023-05-18 14:35 | disposition home or self-care (01) ==
LOC: HO.HWS 13:10
PROVIDERS: PCP Internal Medicine; Visit Provider Advanced Practice Midwife
DX: Z34.92 Encounter for supervision of normal pregnancy, unspecified, second trimester (principal); G47.62 Sleep related leg cramps; G43.109 Migraine with aura, not intractable, without status migrainosus; Z36.3 Encounter for antenatal screening for malformations; Z34.91 Encounter for supervision of normal pregnancy, unspecified, first trimester
CPT/HCPCS: 25942

== ENCOUNTER 2023-06-16 11:34 | Outpatient (AMB) | payer OTHER, SELFPAY ==
--- NOTE | 2023-06-16 11:37 | MHC.OFFVISPN ---
Intake Vital Signs 06/16/23 11:38 Height 5 ft 6 in Weight 137 lb BMI 22.1 BP 114/74 Intake Visit Reasons: ALKA Intake Note: The patient agreed to use of a medical records administrator during this encounter. Scribed for MAHNAZ Polo by Lashawn Wallace medical records administrator, on 06/16/2023 at 11:48 am EST. Allergies cyclobenzaprine Adverse Reaction (Unknown, Verified 06/16/23 11:38) dry mouth and vertigo Patient : Yes PFSH Medical History (Updated 06/09/23 @ 16:44 by Sheryl Murray CNM) Migraine with aura Nocturnal leg cramps Recurrent headache Upper back pain on right side Surgical History No pertinent past surgical history Family History Father Heart disease Mother Diabetes mellitus HTN (hypertension) CVD (cardiovascular disease) Maternal Aunt Diabetes mellitus History of CVA (cerebrovascular accident) Brother No problems noted. Brother No problems noted. Brother No problems noted. Sister No problems noted. Sister No problems noted. Social History Housing: Apartment Alcohol intake: never Patient Tobacco Use Status: Never used Tobacco e-Cigarette/Vaping Use: Never Used service: No Current occupational status: employed Sexual orientation: Straight/Heterosexual Gender identity: Female Cognitive needs: No Hearing needs: No Vision needs: No Female Reproductive History Menstrual Age of Menarche: 15 History History 1 Elective abortions 0 Para 0 Spontaneous abortions 0 Hx # Term Pregnancies 0 Ectopic pregnancies 0 Hx # Pregnancies 0 Multiple births 0 Visit ANYI Calculator Estimated Delivery Date Method Current WG Current Estimate 11/05/23 Ultrasound #1 19w 5d Other Estimates 11/05/23 LMP (Certain) 19w 5d Expected Delivery Route/Plan Vaginal delivery Specific Issues/Plans hx of migraines, fm hx of diabetes, early 1 hr gtt ordered,. hx of Anemia. OB Problem List: 32 yr. old ? ? G1 ?P0 ? ? ?LMP: 01/29/23 EDC: 11/05/23 ?by sure dates? ? ?Blood type: O pos Problem List: 1. Migraines- has neurologist [place] [facility], on fioricet- rec only using if really necessary and prioritize water intake. 2.- ANEMIA- take iron every other day due to GI effects (constipation) Testing: Panorama/and or First Tri screen: ? ?risklow risk for downs and tri 18. NT scan: wnl First screen: negative FAS: booked 06/25/23 Glucose: early still pending, 05/18? 28 wk glucose: ? CBC 1st Tri: ? ? 10.7/35.6 ? 28 wk. 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 [employer] Transportation: Labor, and Concerns: Labor support: Plan: Infant Feeding Plans: breast- initial teaching do control: OB Visit Log Initial Weight: 120 lb Date <del>?</del> EGA Weight Gest Week Fundal Ht Present FHR move Efface % Edema BP PrePreg We Weight GTT <del>?</del> Glucose LV Protein Blood Type 04/16/23 <del>?</del> 11w 0d 127 lb 2 oz (+7 lb 2 oz) 127 lb 2 oz <del>?</del> 05/18/23 <del>?</del> 15w 4d 131 lb (+11 lb) 15 150 active 118/66 131 lb <del>?</del> 06/16/23 <del>?</del> 19w 5d 137 lb (+17 lb) 19 150 active 114/74 137 lb <del>?</del> Notes Visit Date: 06/16/23 Last Updated by: Patience Del Rio CNM Note author: Patience Del Rio CNM/Lashawn Wallace medical records administrator 19.5 wk ALKA. Feeling well. Taking PNV. Hydrating well and good appetite Good FM, no LOF, VB or abd pain. Reports she has a scheduled US on Jun 25; she recently canceled other US for this week due to scheduling at work. Admits she is prone to migraines and sees a Neurologist. Discussed: PTL - LOF, VB, abd pain. Advised to eat small frequent meals, hydrate well with water and stay cool. PEC - headaches: not resolved with 2 regular strength Tylenol doses, visual disturbances warnings and when to call for further evaluation. Reviewed when to call for any VB, LOF, contractions, Kick counts reviewed and when to call for any decreased FM. Encouraged patient to sign up for patient portal. Discussed to call the service here for any emergencies/deliveries to be directed to [facility]. Offer transfer to [employer] to [facility] as she works there, she declines and prefers to continue care here. RTO in 1 month. Visit Date: 05/18/23 Last Updated by: Sheryl Murray CNM Patient is here for an initial visit at 15 weeks and 4 days. She says she has never had a Pap smear she tried a few years ago but she was too tense and scared and could not allow for it to happen. She is and this is a planned and she is very happy. She has been feeling a little bit better from the nausea she does not need to take the vitamin B6 anymore she recently started iron twice a day for the anemia she did is constipated when she takes it but she is eating lots of healthy fresh fruits and vegetables and also taking prune a lax, which is helping. 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 She has not done the sugar test yet because she was nauseous and she is waiting to feel little bit better. Discussed testing evaluations process changes that happen in her body including what to expect for the future. Patient was tense with exam but was able to proceed with pelvic exam unable to reproduce a Kegel. Verbal teaching done. Discussed relaxation and normal see of labor and process and she is interested in classes and will check out [employer] classes as well as online. Initial teaching about and what to expect and how to help the baby get latched on with her well everted nipples done and recommend considering wick childbirth classes as well. RTC 4 weeks reviewed her nuchal translucency which was normal and her normal 1st trimester screening. Will order the anatomy ultrasound for around 20 weeks as well She it had a clean-catch urine with her in initial lab work which was negative however she needed to void with frequency here while she was here so we are sending a clean-catch urine from here as well. She tries to drink lots of water so she thinks that is what it is but were sending it just to be on the safe side. Additionally she complains of recurring the leg cramps at night. She has magnesium at home that she was taking for this in the past but she stopped bothering and I urged her to has restart it again but continue with her water intake as well because that will help with the headaches. 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 G1, pt and her are very happy abut the . 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 She is having some nausea with a few episodes of vomiting. Pt is eating and drinking. She is eating healthy foods, veggies and fruits. She is on Vit B6, and feels it is helping her. Discussed with pt, to eat more frequent smaller amounts of food throughout the day. She will be getting her PNL labs drawn and early 1 hr gtt due to FH of diabetes., CF and UDS. Pt does not smoke , drink or use MJ. Discussed with pt, her u/s and delivery will be at [facility]. Discussed if any problems after hours, how to reach MD instrumentation technician, and to go to [facility] and not [facility] if needed. Pt is interested in childbirth classes in the 3rd trimester.OB physical scheduled. Discussed NT u/s genetic screen, orders sent to [facility] for appt. Discussed and given packet, she was advised to call with any questions or concerns. Results AMB Urinalysis, Automated UA Leukoctes 0 Jessie/uL Last Edit by Erica Garcia [facility] on 06/16/23 11:45 UA Nitrite Negative Last Edit by Erica Garcia [facility] on 06/16/23 11:45 UA Urobilinogen 0 mg/dL Last Edit by Erica Garcia [facility] on 06/16/23 11:45 UA Protein 0 mg/dL Last Edit by Erica Garcia [facility] on 06/16/23 11:45 UA pH 6.0 Last Edit by Erica Garcia [facility] on 06/16/23 11:45 UA Blood 0 Darinel/uL Last Edit by Erica Garcia [facility] on 06/16/23 11:45 UA Specific [place] 1.015 Last Edit by Erica Garcia [facility] on 06/16/23 11:45 UA Ketone Negative Last Edit by Erica Garcia [facility] on 06/16/23 11:45 UA Bilirubin 0 mg/dL Last Edit by Erica Garcia [facility] on 06/16/23 11:45 UA Glucose 0 mg/dL Last Edit by Erica Garcia [facility] on 06/16/23 11:45 Results Reviewed Results Reviewed: Laboratory Last Values Urine pH (Auto) 6.0 06/16/23 11:45 Specific [place] (Auto) 1.015 06/16/23 11:45 Urine Protein (Auto) 0 mg/dL 06/16/23 11:45 Glucose (UA)(Auto) 0 mg/dL 06/16/23 11:45 Urine Ketones (Auto) Negative 06/16/23 11:45 Urine Blood (Auto) 0 Darinel/uL 06/16/23 11:45 Urine Nitrite (Auto) Negative 06/16/23 11:45 Urine Bilirubin (Auto) 0 mg/dL 06/16/23 11:45 Urine Urobilinogen (Auto) 0 mg/dL 06/16/23 11:45 Leukocyte Esterase (Auto) 0 Jessie/uL 08/29/23 11:45 Assessment & Plan Assessment & Plan (1) Supervision of normal in first trimester: Code(s): Z34.91 - Encounter for supervision of normal , unspecified, first trimester Category: Medical Orders: Orders AMB Urinalysis Automated Today Z34.92 - Encounter for supervision of normal , unspecified, second trimester Coding Level of Care Code [place] Diagnoses Supervision of normal in first trimester Z34.91
[2023-06-16 11:38] VITALS: BP 114/74; BMI 22.1
== END 2023-06-16 12:01 | disposition home or self-care (01) ==
LOC: HO.HWS 11:34
PROVIDERS: PCP Internal Medicine; Visit Provider Advanced Practice Midwife
DX: Z34.91 Encounter for supervision of normal pregnancy, unspecified, first trimester (principal); Z34.92 Encounter for supervision of normal pregnancy, unspecified, second trimester
CPT/HCPCS: 25942

== ENCOUNTER → 2023-06-16 11:34 | Outpatient (BNVA) | payer OTHER, SELFPAY | PROVIDERS: PCP Internal Medicine; Visit Provider Advanced Practice Midwife | DX: O99.012 Anemia complicating pregnancy, second trimester (principal); D64.9 Anemia, unspecified; O26.892 Other specified pregnancy related conditions, second trimester; G43.109 Migraine with aura, not intractable, without status migrainosus; Z3A.19 19 weeks gestation of pregnancy; Z83.3 Family history of diabetes mellitus; Z79.899 Other long term (current) drug therapy | CPT/HCPCS: 81003; 99212 ==

== ENCOUNTER 2023-07-17 11:41 | Outpatient (AMB) | payer OTHER, SELFPAY ==
--- NOTE | 2023-07-17 11:50 | MHC.OFFVISPN ---
Intake Vital Signs 07/17/23 11:53 Height 5 ft 6 in Weight 145 lb BMI 23.4 BP 110/62 Intake Visit Reasons: ALKA Intake Note: The patient agreed to use of a medical claims representative during this encounter. Scribed for MAHNAZ Polo by Dedra Ken medical claims representative, on 07/17/2023 at 12:15 pm EST Hostler Helper Required: No Information Interpreted: non-clinical & clinical Accompanied by: Self / Same As Patient Allergies cyclobenzaprine Adverse Reaction (Unknown, Verified 07/17/23 11:54) dry mouth and vertigo Patient : Yes [facility] Medical History (Updated 07/17/23 @ 12:23 by Dedra Ken) Nocturnal leg cramps Recurrent headache Upper back pain on right side Migraine with aura Surgical History No pertinent past surgical history Family History Father Heart disease Mother Diabetes mellitus HTN (hypertension) CVD (cardiovascular disease) Maternal Aunt Diabetes mellitus History of CVA (cerebrovascular accident) Brother No problems noted. Brother No problems noted. Brother No problems noted. Sister No problems noted. Sister No problems noted. Social History Housing: Apartment Alcohol intake: never Patient Tobacco Use Status: Never used Tobacco e-Cigarette/Vaping Use: Never Used service: No Current occupational status: employed Sexual orientation: Straight/Heterosexual Gender identity: Female Cognitive needs: No Hearing needs: No Vision needs: No Female Reproductive History Menstrual Age of Menarche: 15 History History 1 Elective abortions 0 Para 0 Spontaneous abortions 0 Hx # Term Pregnancies 0 Ectopic pregnancies 0 Hx # Pregnancies 0 Multiple births 0 Visit ANYI Calculator Estimated Delivery Date Method Current WG Current Estimate 11/05/23 Ultrasound #1 24w 1d Other Estimates 11/05/23 LMP (Certain) 24w 1d Expected Delivery Route/Plan Vaginal delivery Specific Issues/Plans hx of migraines, fm hx of diabetes, early 1 hr gtt ordered,. hx of Anemia. OB Problem List: 32 yr. old ? ? G1 ?P0 ? ? ?LMP: 01/29/23 EDC: 11/05/23 ?by sure dates? ? ?Blood type: O pos Problem List: 1. Migraines- has neurologist at [facility], on fioricet- rec only using if really necessary and prioritize water intake. 2.- ANEMIA- take iron every other day due to GI effects (constipation) Testing: Panorama/and or First Tri screen: ? ?risklow risk for downs and tri 18. NT scan: wnl First screen: negative FAS: booked 06/25/23 Glucose: early still pending, 05/18? 28 wk glucose: ? CBC 1st Tri: ? ? 10.7/35.6 ? 28 wk. CBC: GBS: Vaccinations: Flu: Covid: Vaxed x 2, had covid in 2021. 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[employer] Transportation: Labor, and Concerns: Labor support: Plan: Feeding Plans: breast- initial teaching do control: OB Visit Log Initial Weight: 120 lb Date <del>?</del> EGA Weight Gest Week Fundal Ht Present FHR move Efface % Edema BP PrePreg We Weight GTT <del>?</del> Glucose LV Protein Blood Type 04/16/23 <del>?</del> 11w 0d 127 lb 2 oz (+7 lb 2 oz) 127 lb 2 oz <del>?</del> 05/18/23 <del>?</del> 15w 4d 131 lb (+11 lb) 15 150 active 118/66 131 lb <del>?</del> 06/16/23 <del>?</del> 19w 5d 137 lb (+17 lb) 19 150 active 114/74 137 lb <del>?</del> 07/17/23 <del>?</del> 24w 1d 145 lb (+25 lb) 24 150 active 110/62 145 lb <del>?</del> Notes Visit Date: 07/17/23 Last Updated by: Patience Del Rio CNM Note author: Patience Del Rio CNM/Dedra Ken, medical claims representative 24.1 wk ALKA. Taking PNV. Good FM. Denies LOF, VB or abd pain. Reports feeling dizzy last week, since resolved. Good appetite and stays well hydrated. Has not done GTT yet. Discussed: PTL-LOF, VB, abd pain, ctx and when to call for further evaluation. PEC - headaches: not resolved with 2 regular strength Tylenol doses, visual disturbances warnings and when to call for further evaluation.? FKC: have something to eat and drink, should have 5 kicks in 1hr or 10 kicks in 2 hrs, if not call immediately for evaluation. Staying well hydrated, drink 8-10 glasses of water per day. ?Maintain a healthy diet and light exercise, avoid excess sugars and soda. RTO in 4 weeks. Visit Date: 06/16/23 Last Updated by: Patience Del Rio CNM Note author: Patience Del Rio CNM/Lashawn Wallace medical claims representative 19.5 wk ALKA. Feeling well. Taking PNV. Hydrating well and good appetite Good FM, no LOF, VB or abd pain. Reports she has a scheduled US on Jun 25; she recently canceled other US for this week due to scheduling at work. Admits she is prone to migraines and sees a Neurologist. Discussed: PTL - LOF, VB, abd pain. Advised to eat small frequent meals, hydrate well with water and stay cool. PEC - headaches: not resolved with 2 regular strength Tylenol doses, visual disturbances warnings and when to call for further evaluation. Reviewed when to call for any VB, LOF, contractions, Kick counts reviewed and when to call for any decreased FM. Encouraged patient to sign up for patient portal. Discussed to call the service here for any emergencies/deliveries to be directed to [facility]. Offer transfer to [facility] to [facility] as she works there, she declines and prefers to continue care here. RTO in 1 month. Visit Date: 05/18/23 Last Updated by: Sheryl Murray CNM Patient is here for an initial visit at 15 weeks and 4 days. She says she has never had a Pap smear she tried a few years ago but she was too tense and scared and could not allow for it to happen. She is and this is a planned and she is very happy. She has been feeling a little bit better from the nausea she does not need to take the vitamin B6 anymore she recently started iron twice a day for the anemia she did is constipated when she takes it but she is eating lots of healthy fresh fruits and vegetables and also taking prune a lax, which is helping. While she works at [facility] [facility] [employer] it at [facility] in phlebotomy she really does want to come here though she is happy to deliver there and get her ultrasounds done there. She has not done the sugar test yet because she was nauseous and she is waiting to feel little bit better. Discussed testing evaluations process changes that happen in her body including what to expect for the future. Patient was tense with exam but was able to proceed with pelvic exam unable to reproduce a Kegel. Verbal teaching done. Discussed relaxation and normal see of labor and process and she is interested in classes and will check out [facility] classes as well as online. Initial teaching about and what to expect and how to help the baby get latched on with her well everted nipples done and recommend considering wick childbirth classes as well. RTC 4 weeks reviewed her nuchal translucency which was normal and her normal 1st trimester screening. Will order the anatomy ultrasound for around 20 weeks as well She it had a clean-catch urine with her in initial lab work which was negative however she needed to void with frequency here while she was here so we are sending a clean-catch urine from here as well. She tries to drink lots of water so she thinks that is what it is but were sending it just to be on the safe side. Additionally she complains of recurring the leg cramps at night. She has magnesium at home that she was taking for this in the past but she stopped bothering and I urged her to has restart it again but continue with her water intake as well because that will help with the headaches. Visit Date: 04/16/23 Last Updated by: Soco Prasad LPN Indira is here today for her digital computer operator at 11wks. G1, pt and her are very happy abut the . 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 She is having some nausea with a few episodes of vomiting. Pt is eating and drinking. She is eating healthy foods, veggies and fruits. She is on Vit B6, and feels it is helping her. Discussed with pt, to eat more frequent smaller amounts of food throughout the day. She will be getting her PNL labs drawn and early 1 hr gtt due to FH of diabetes., CF and UDS. Pt does not smoke , drink or use MJ. Discussed with pt, her u/s and delivery will be at [facility] [place]. Discussed if any problems after hours, how to reach MD commissioning specialist, and to go to [facility] [place] and not [facility] if needed. Pt is interested in childbirth classes in the 3rd trimester.OB physical scheduled. Discussed NT u/s genetic screen, orders sent to [facility] [place] for appt. Discussed and given packet, she was advised to call with any questions or concerns. Assessment & Plan Assessment & Plan (1) Supervision of normal in second trimester: Code(s): Z34.92 - Encounter for supervision of normal , unspecified, second trimester Category: Medical Orders: Orders Syphilis Screen Today Z20.2 - Contact with and (suspected) exposure to infections with a predominantly sexual mode of transmission, Z34.92 - Encounter for supervision of normal , unspecified, second trimester Glucose 1 Hour PP 50gm Dose Today Z34.92 - Encounter for supervision of normal , unspecified, second trimester Complete Blood Count no Diff Today Z34.92 - Encounter for supervision of normal , unspecified, second trimester Coding Level of Care Code [place] Diagnoses Supervision of normal in second trimester Z34.92
[2023-07-17 11:53] VITALS: BP 110/62; BMI 23.4
== END 2023-07-17 12:25 | disposition home or self-care (01) ==
LOC: HO.HWS 11:41
PROVIDERS: PCP Internal Medicine; Visit Provider Advanced Practice Midwife
DX: Z34.92 Encounter for supervision of normal pregnancy, unspecified, second trimester (principal)
CPT/HCPCS: 25942

== ENCOUNTER → 2023-07-17 11:41 | Outpatient (BNVA) | payer OTHER, SELFPAY | PROVIDERS: PCP Internal Medicine; Visit Provider Advanced Practice Midwife | DX: O99.352 Diseases of the nervous system complicating pregnancy, second trimester (principal); G43.009 Migraine without aura, not intractable, without status migrainosus; O99.012 Anemia complicating pregnancy, second trimester; D64.9 Anemia, unspecified; Z3A.24 24 weeks gestation of pregnancy | CPT/HCPCS: 99212 ==

== ENCOUNTER 2023-08-13 08:18 | Outpatient (AMB) | payer OTHER, SELFPAY ==
[2023-08-13 08:23] VITALS: BP 102/60; BMI 24.4
--- NOTE | 2023-08-13 08:23 | A.OFFVISPN_ITS ---
Intake Vital Signs 08/13/23 08:23 Height 5 ft 6 in Weight 151 lb BMI 24.4 BP 102/60 Intake Visit Reasons: ALKA Intake Note: EPDS 1 Allergies cyclobenzaprine Adverse Reaction (Unknown, Verified 08/13/23 08:23) dry mouth and vertigo Patient : Yes [facility] Medical History (Updated 07/17/23 @ 12:23 by Dedra Ken) Nocturnal leg cramps Recurrent headache Upper back pain on right side Migraine with aura Surgical History No pertinent past surgical history Family History Father Heart disease Mother Diabetes mellitus HTN (hypertension) CVD (cardiovascular disease) Maternal Aunt Diabetes mellitus History of CVA (cerebrovascular accident) Brother No problems noted. Brother No problems noted. Brother No problems noted. Sister No problems noted. Sister No problems noted. Social History Housing: Apartment Alcohol intake: never Patient Tobacco Use Status: Never used Tobacco e-Cigarette/Vaping Use: Never Used service: No Current occupational status: employed Sexual orientation: Straight/Heterosexual Gender identity: Female Cognitive needs: No Hearing needs: No Vision needs: No Female Reproductive History Menstrual Age of Menarche: 15 History History 1 Elective abortions 0 Para 0 Spontaneous abortions 0 Hx # Term Pregnancies 0 Ectopic pregnancies 0 Hx # Pregnancies 0 Multiple births 0 Questionnaire [place]agh Depression Armagh Depression Scale I have been able to laugh and see the funny side of things: As much as I always could I have looked forward with enjoyment to things: As much as I ever did I have blamed myself unnecessarily when things went wrong: No, never I have been anxious or worried for no reason: No, not at all I have felt scared of panicky for no very good reason at all: No, not so much Things have been getting on top of me: No, I have been coping as well as ever I have been so unhappy that I have had difficulty sleeping: No, not at all I have felt sad or miserable: No, not at all I have been so unhappy that I have been crying: No, never The thought of harming myself has occurred to me: Never 1 Visit ANYI Calculator Estimated Delivery Date Method Current WG Current Estimate 11/05/23 Ultrasound #1 28w 0d Other Estimates 11/05/23 LMP (Certain) 28w 0d Expected Delivery Route/Plan Vaginal delivery Specific Issues/Plans OB Problem List: 32 yr. old ? ? G1 ?P0 ? ? ?LMP: 01/29/23 EDC: 11/05/23 ?by sure dates? ? ?Blood type: O pos Problem List: 1. Migraines- has neurologist at [facility], on fioricet- rec only using if really necessary and prioritize water intake. 2. ANEMIA- take iron every other day due to GI effects (constipation) 3. Leg varicosities: plan Rx for Jobst full length maternity hose. Care, warnings discussed 08/13/23 Testing: Panorama/and or First Tri screen: ? ?risklow risk for downs and tri 18. NT scan: wnl First screen: negative FAS: booked 06/25/23 Glucose: early still pending, 05/18? 28 wk glucose: ? CBC 1st Tri: ? ? 10.7/35.6 ? 28 wk. CBC: GBS: Vaccinations: Flu: Covid: Vaxed x 2, had covid in 2021. 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[facility] Transportation: Labor, and Concerns: Labor support: Plan: Infant Feeding Plans: breast- initial teaching control: OB Visit Log Initial Weight: 120 lb Date -?-?-?-?-?-?-?-?-?-?-?-?- EGA Weight Gest Week Fundal Ht Present FHR move Efface % Edema BP PrePreg We Weight GTT -?-?-?-?-?-?-?-?-?-?-?-?- Glucose LV Protein Blood Type 04/16/23 -?-?-?-?-?-?-?-?-?-?-?-?- 11w 0d 127 lb 2 oz (+7 lb 2 oz) 1 27 lb 2 oz -?-?-?-?-?-?-?-?-?-?-?-?- 05/18/23 -?-?-?-?-?-?-?-?-?-?-?-?- 15w 4d 131 lb (+11 lb) 15 150 active 118/66 131 lb -?-?-?-?-?-?-?-?-?-?-?-?- 06/16/23 -?-?-?-?-?-?-?-?-?-?-?-?- 19w 5d 137 lb (+17 lb) 19 150 active 114/74 137 lb -?-?-?-?-?-?-?-?-?-?-?-?- 07/17/23 -?-?-?-?-?-?-?-?-?-?-?-?- 24w 1d 145 lb (+25 lb) 24 150 active 110/62 145 lb -?-?-?-?-?-?-?-?-?-?-?-?- 08/13/23 -?-?-?-?-?-?-?-?-?-?-?-?- 28w 0d 151 lb (+31 lb) 27 150 active 102/60 151 lb -?-?-?-?-?-?-?-?-?-?-?-?- Notes Visit Date: 08/13/23 Last Updated by: Patience Del Rio CNM Note author: Patience Del Rio CNM. 28wk. ALKA. Not taking PNV due to GI effects, Concerns: leg discomfort and swelling with veins. Good appetite, stays well hydrated. Denies any LOF, VB, abd. pain or urinary symptoms. Good FM. Plans 28 wk labs this Thursday. EPDS=1. Exam: bilateral leg varicose veins thigh to foot, no edema or erythema. Discussed: PTL s/s-LOF/Ctx's/VB, when to seek emergent care. discomforts, self help measures. Kick counts/FM and when to call the office for further eval. Encouraged a healthy well balanced diet, regular walking/exercise in . Hydrate well, 8-10 glasses of water daily. Jobst stocking: will check insurance coverage and have Rx if needed or option of purchasing on [employer]. Vein care and warnings. Rx for PN gummies. RTO 2 wks. Visit Date: 07/17/23 Last Updated by: Patience Del Rio CNM Note author: Patience Del Rio CNM/Dedra Ken medical assistant ob gyn 24.1 wk ALKA. Taking PNV. Good FM. Denies LOF, VB or abd pain. Reports feeling dizzy last week, since resolved. Good appetite and stays well hydrated. Has not done GTT yet. Discussed: PTL-LOF, VB, abd pain, ctx and when to call for further evaluation. PEC - headaches: not resolved with 2 regular strength Tylenol doses, visual disturbances warnings and when to call for further evaluation.? FKC: have something to eat and drink, should have 5 kicks in 1hr or 10 kicks in 2 hrs, if not call immediately for evaluation. Staying well hydrated, drink 8-10 glasses of water per day. ?Maintain a healthy diet and light exercise, avoid excess sugars and soda. RTO in 4 weeks. Visit Date: 06/16/23 Last Updated by: Patience Del Rio CNM Note author: Patience Del Rio CNM/Lashawn Wallace medical assistant ob gyn 19.5 wk ALKA. Feeling well. Taking PNV. Hydrating well and good appetite Good FM, no LOF, VB or abd pain. Reports she has a scheduled US on Jun 25; she recently canceled other US for this week due to scheduling at work. Admits she is prone to migraines and sees a Neurologist. Discussed: PTL - LOF, VB, abd pain. Advised to eat small frequent meals, hydrate well with water and stay cool. PEC - headaches: not resolved with 2 regular strength Tylenol doses, visual disturbances warnings and when to call for further evaluation. Reviewed when to call for any VB, LOF, contractions, Kick counts reviewed and when to call for any decreased FM. Encouraged patient to sign up for patient portal. Discussed to call the service here for any emergencies/deliveries to be directed to [facility]. Offer transfer to [facility] to esblish care as she works there, she declines and prefers to continue care here. RTO in 1 month. Visit Date: 05/18/23 Last Updated by: Sheryl Murray CNM Patient is here for an initial visit at 15 weeks and 4 days. She says she has never had a Pap smear she tried a few years ago but she was too tense and scared and could not allow for it to happen. She is and this is a planned and she is very happy. She has been feeling a little bit better from the nausea she does not need to take the vitamin B6 anymore she recently started iron twice a day for the anemia she did is constipated when she takes it but she is eating lots of healthy fresh fruits and vegetables and also taking prune a lax, which is helping. 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 She has not done the sugar test yet because she was nauseous and she is waiting to feel little bit better. Discussed testing evaluations process changes that happen in her body including what to expect for the future. Patient was tense with exam but was able to proceed with pelvic exam unable to reproduce a Kegel. Verbal teaching done. Discussed relaxation and normal see of labor and process and she is interested in classes and will check out [facility] classes as well as online. Initial teaching about and what to expect and how to help the baby get latched on with her well everted nipples done and recommend considering wick childbirth classes as well. RTC 4 weeks reviewed her nuchal translucency which was normal and her normal 1st trimester screening. Will order the anatomy ultrasound for around 20 weeks as well She it had a clean-catch urine with her in initial lab work which was negative however she needed to void with frequency here while she was here so we are sending a clean-catch urine from here as well. She tries to drink lots of water so she thinks that is what it is but were sending it just to be on the safe side. Additionally she complains of recurring the leg cramps at night. She has magnesium at home that she was taking for this in the past but she stopped bothering and I urged her to has restart it again but continue with her water intake as well because that will help with the headaches. Visit Date: 04/16/23 Last Updated by: Soco Prasad LPN Indira is here today for her scan coordinator at 11wks. G1, pt and her are very happy abut the . 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 She is having some nausea with a few episodes of vomiting. Pt is eating and drinking. She is eating healthy foods, veggies and fruits. She is on Vit B6, and feels it is helping her. Discussed with pt, to eat more frequent smaller amounts of food throughout the day. She will be getting her PNL labs drawn and early 1 hr gtt due to FH of diabetes., CF and UDS. Pt does not smoke , drink or use MJ. Discussed with pt, her u/s and delivery will be at [facility]. Discussed if any problems after hours, how to reach MD hydraulic elevator constructor, and to go to [facility] and not [facility] if needed. Pt is interested in childbirth classes in the 3rd trimester.OB physical scheduled. Discussed NT u/s genetic screen, orders sent to [facility] for appt. Discussed and given packet, she was advised to call with any questions or concerns. Results AMB Urinalysis, Automated UA Leukoctes 0 Jessie/uL Last Edit by HEIDI Parks on 08/13/23 08:30 UA Nitrite Negative Last Edit by HEIDI Parks on 08/13/23 08:30 UA Urobilinogen 0 mg/dL Last Edit by HEIDI Parks on 08/13/23 08:3 0 UA Protein 0 mg/dL Last Edit by HEIDI Parks on 08/13/23 08:30 UA pH 6.5 Last Edit by HEIDI Parks on 08/13/23 08:30 UA Blood 0 Darinel/uL Last Edit by HEIDI Parks on 08/13/23 08:30 UA Specific [place] 1.005 Last Edit by HEIDI Parks on 08/13/23 08:30 UA Ketone Negative Last Edit by HEIDI Parks on 08/13/23 08:30 UA Bilirubin 0 mg/dL Last Edit by HEIDI Parks on 08/13/23 08:30 UA Glucose 0 mg/dL Last Edit by HEIDI Parks on 08/13/23 08:30 Results Reviewed Results Reviewed: Laboratory Last Values Urine pH (Auto) 6.5 08/13/23 08:28 Specific [place] (Auto) 1.005 08/13/23 08:28 Urine Protein (Auto) 0 mg/dL 08/13/23 08:28 Glucose (UA)(Auto) 0 mg/dL 08/13/23 08:28 Urine Ketones (Auto) Negative 08/13/23 08:28 Urine Blood (Auto) 0 Darinel/uL 08/13/23 08:28 Urine Nitrite (Auto) Negative 08/13/23 08:28 Urine Bilirubin (Auto) 0 mg/dL 08/13/23 08:28 Urine Urobilinogen (Auto) 0 mg/dL 08/13/23 08:28 Leukocyte Esterase (Auto) 0 Jessie/uL 08/13/23 08:28 Assessment & Plan Assessment & Plan Orders: Orders AMB Urinalysis Automated Today Z34.93 - Encounter for supervision of normal , unspecified, third trimester Medications: New PNV no.[id number] 400 mcg-35 mg- 25 mg-5 mg ( Gummies) 1 tab PO DAILY 90 tabs 4RF Coding Level of Care Code Hernán
== END 2023-08-13 08:53 | disposition home or self-care (01) ==
LOC: HO.HWSW 08:19
PROVIDERS: PCP Internal Medicine; Visit Provider Advanced Practice Midwife
DX: Z34.93 Encounter for supervision of normal pregnancy, unspecified, third trimester (principal)
CPT/HCPCS: 25942

== ENCOUNTER → 2023-08-13 08:18 | Outpatient (BNVA) | payer OTHER, SELFPAY | PROVIDERS: PCP Internal Medicine; Visit Provider Advanced Practice Midwife | DX: O99.013 Anemia complicating pregnancy, third trimester (principal); D64.9 Anemia, unspecified; O22.03 Varicose veins of lower extremity in pregnancy, third trimester; I83.12 Varicose veins of left lower extremity with inflammation; I83.11 Varicose veins of right lower extremity with inflammation; Z3A.28 28 weeks gestation of pregnancy; Z67.40 Type O blood, Rh positive | CPT/HCPCS: 81003; 99212 ==

== ENCOUNTER 2023-08-15 08:26 | Outpatient (REF) | payer OTHER, SELFPAY ==
[2023-08-15 10:11] LABS: Hematocrit 31.7 % (37.0-47.0); Hemoglobin 9.9 g/dl (12.0-16.0); Mean Corpuscular HGB Conc 31.2 g/dl (31.0-35.0); Mean Corpuscular Hemoglobin 24.8 pg (27.0-33.0); Mean Corpuscular Volume 79.4 fL (80.0-98.0); Mean Platelet Volume 11.6 fL (9.4-12.3); Platelet Count 141 X10*3/uL (160-400); Red Blood Count 3.99 X10*6/uL (4.20-5.50); Red Cell Distribution Width 15.8 % (11.0-16.0); White Blood Count 6.2 X10*3/uL (4.8-10.8)
[2023-08-15 10:32] LABS: Glucose 1 Hour PP 50gm Dose 62 mg/dL (60-140)
[2023-08-15 11:04] LABS: Syphilis Screen Nonreactive (Nonreactive)
== END 2023-08-15 08:27 | disposition home or self-care (01) ==
LOC: HO.LAB 08:26
PROVIDERS: PCP Internal Medicine; Visit Provider Advanced Practice Midwife
DX: Z34.92 Encounter for supervision of normal pregnancy, unspecified, second trimester (principal); Z20.2 Contact with and (suspected) exposure to infections with a predominantly sexual mode of transmission
CPT/HCPCS: 36415; 82950; 85027; 86780

== ENCOUNTER 2023-08-24 10:41 | Outpatient (AMB) | payer OTHER, SELFPAY ==
[2023-08-24 12:39] VITALS: BP 118/80; PULSE 84; TEMP 36.6; O2SAT 99; BMI 24.2
--- NOTE | 2023-08-24 12:39 | AM.OFFWIN_ITS ---
Intake Vital Signs 08/24/23 12:39 Height 5 ft 6 in Weight 68.152 kg BMI 24.2 BP 118/80 Blood Pressure Location Lt brachial Position Sitting Pulse 84 Pulse Source Pulse Oximeter Temp 97.8 F Temp Source Temporal Artery Scan Pulse Oximetry (%) 99 Oxygen Delivery Method Room Air Intake Visit Reasons: EST/congestion/ [phone] Intake Note: pt is here for c/o congestion with sore throat Patient Tobacco Use Status: Never used Tobacco Allergies cyclobenzaprine Adverse Reaction (Unknown, Verified 08/24/23 12:40) dry mouth and vertigo Do you need a note to return to daycare/school/sports/work: Yes HPI EST/congestion/ [phone] HPI Details Patient presents with 4 days of nasal congestion, sore throat and cough. She reports on the 1st day of illness she had a fever of 104 measured at home. She denies recurrent fever but does feel chills. Denies headache, body aches, chest pain, shortness of breath, or weakness, vomiting or persisting nausea. She does note generalized fatigue, decreased appetite but is tolerating food and fluids.. She has been taking Tylenol with and Mucinex with minimal relief. Denies sick contacts at home. Of note she is 27 weeks . She has been in contact with her OB in his noting good kick counts and movement. [facility] Medical History (Updated 07/17/23 @ 12:23 by Dedra Ken) Nocturnal leg cramps Recurrent headache Upper back pain on right side Migraine with aura Surgical History No pertinent past surgical history Family History Father Heart disease Mother Diabetes mellitus HTN (hypertension) CVD (cardiovascular disease) Maternal Aunt Diabetes mellitus History of CVA (cerebrovascular accident) Brother No problems noted. Brother No problems noted. Brother No problems noted. Sister No problems noted. Sister No problems noted. Social History Housing: Apartment Alcohol intake: never Patient Tobacco Use Status: Never used Tobacco e-Cigarette/Vaping Use: Never Used service: No Current occupational status: employed Sexual orientation: Straight/Heterosexual Gender identity: Female Cognitive needs: No Hearing needs: No Vision needs: No Female Reproductive History Menstrual Age of Menarche: 15 Review of Systems Const Reports as per HPI and Reports no additional complaints ENT Reports no additional complaints and Reports as per HPI Card Reports as per HPI and Reports no additional complaints Resp Reports as per HPI and Reports no additional complaints GI Reports as per HPI and Reports no additional complaints Reports as per HPI Neuro Reports no additional complaints and Reports as per HPI Physical Exam Vital Signs: Last Vital Signs Temp 97.8 F 08/24/23 12:39 Pulse 84 08/24/23 12:39 BP 118/80 08/24/23 12:39 Pulse Ox 99 08/24/23 12:39 Oxygen Delivery Method Room Air 08/24/23 12:39 BMI result Body Mass Index 24.2 Const General: cooperative, comfortable and no acute distress Orientation/consciousness: patient oriented x3 HEENT Ears: external ears normal and TM's normal bilaterally General nose exam: Normal external nose present and Normal nasal mucous membranes and turbinates present Face and sinus: Yes sinuses nontender Mouth: Normal oral and palatal mucosa present Throat: Yes posterior oropharynx normal Neck Neck: Yes no lymphadenopathy Resp Effort & Inspection: normal respiratory effort Auscultation: clear to auscultation bilaterally Cardio Rate: regular rate Rhythm: regular rhythm Heart sounds: S1 normal heart sound present and S2 normal heart sound present Neuro General: patient oriented x3 Extrem General: Yes no pedal edema Results AMB Rapid Strep AMB Rapid Strep Negative Last Edit by Miguel Baires CMA on 08/24/23 13 :07 Assessment & Plan Assessment & Plan (1) Viral syndrome: Code(s): B34.9 - Viral infection, unspecified Plan: Viral swab collected today will report results as available. Continue self-care and OTC remedies safe in such as Tylenol. She can try Benadryl to help dry out postnasal drip which may alleviate some of her symptoms. Continue to monitor movement. Contact with OB if any bleeding cramping return of fever or decreased movement. Return to clinic if symptoms do not improve over the next 3-5 days. I have given her a work note until she sees her OB on . Orders: Orders AMB Rapid Strep Screen Today Z13.9 - Encounter for screening, unspecified SARS-CoV2/FLU/RSV Today B34.9 - Viral infection, unspecified Coding Level of Care Code Est Pt Level 3 (10140) Diagnoses Viral syndrome B34.9
== END 2023-08-24 13:24 | disposition home or self-care (01) ==
PROVIDERS: PCP Internal Medicine; Visit Provider Physician Assistant
DX: B34.9 Viral infection, unspecified (principal); J02.9 Acute pharyngitis, unspecified
CPT/HCPCS: 87880; 99213

== ENCOUNTER 2023-08-24 16:03 | Outpatient (REF) | payer OTHER, SELFPAY ==
[2023-08-24 17:46] LABS: Influenza A PCR NEGATIVE (Negative); Influenza B PCR NEGATIVE (Negative); Resp Syncy Virus RNA Qual PCR NEGATIVE (Negative); SARS COV2 PCR INHOUSE NEGATIVE (Negative)
== END 2023-08-24 16:04 | disposition home or self-care (01) ==
LOC: HO.LNP 16:03
PROVIDERS: Visit Provider Physician Assistant
DX: Z11.52 Encounter for screening for COVID-19 (principal); Z20.822 Contact with and (suspected) exposure to COVID-19; B34.9 Viral infection, unspecified
CPT/HCPCS: 0241U

== ENCOUNTER 2023-08-27 08:15 | Outpatient (AMB) | payer OTHER, SELFPAY ==
--- NOTE | 2023-08-27 08:16 | A.OFFVISPN_ITS ---
Intake Vital Signs 08/27/23 08:17 Height 5 ft 6 in Weight 148 lb BMI 23.9 BP 110/64 Intake Visit Reasons: ALKA Intake Note: Scribed for Patience Del Rio CNM by Que Grewal medical sales specialist, on 08/27/23 at 8:45 AM, EST. Allergies cyclobenzaprine Adverse Reaction (Unknown, Verified 08/27/23 08:16) dry mouth and vertigo Patient : Yes PFSH Medical History (Updated 07/17/23 @ 12:23 by Dedra Ken) Nocturnal leg cramps Recurrent headache Upper back pain on right side Migraine with aura Surgical History No pertinent past surgical history Family History Father Heart disease Mother Diabetes mellitus HTN (hypertension) CVD (cardiovascular disease) Maternal Aunt Diabetes mellitus History of CVA (cerebrovascular accident) Brother No problems noted. Brother No problems noted. Brother No problems noted. Sister No problems noted. Sister No problems noted. Social History Housing: Apartment Alcohol intake: never Patient Tobacco Use Status: Never used Tobacco e-Cigarette/Vaping Use: Never Used service: No Current occupational status: employed Sexual orientation: Straight/Heterosexual Gender identity: Female Cognitive needs: No Hearing needs: No Vision needs: No Female Reproductive History Menstrual Age of Menarche: 15 History History 1 Elective abortions 0 Para 0 Spontaneous abortions 0 Hx # Term Pregnancies 0 Ectopic pregnancies 0 Hx # Pregnancies 0 Multiple births 0 Visit ANYI Calculator Estimated Delivery Date Method Current WG Current Estimate 11/05/23 Ultrasound #1 30w 0d Other Estimates 11/05/23 LMP (Certain) 30w 0d Expected Delivery Route/Plan Vaginal delivery Specific Issues/Plans OB Problem List: 32 yr. old ? ? G1 ?P0 ? ? ?LMP: 01/29/23 EDC: 11/05/23 ?by sure dates? ? ?Blood type: O pos Problem List: 1. Migraines- has neurologist at [facility], on fioricet- rec only using if really necessary and prioritize water intake. 2. ANEMIA- take iron every other day due to GI effects (constipation) 3. Leg varicosities: plan Rx for Jobst full length maternity hose. Care, warnings discussed 08/13/23 Testing: Panorama/and or First Tri screen: ? ?risklow risk for downs and tri 18. NT scan: wnl First screen: negative FAS: booked 06/25/23 Glucose: early still pending, 05/18? 28 wk glucose: ? CBC 1st Tri: ? ? 10.7/35.6 ? 28 wk. CBC: GBS: Vaccinations: Flu: Covid: Vaxed x 2, had covid in 2021. 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- 19w 5d 137 lb (+17 lb) 19 150 active 114/74 137 lb -?-?-?-?-?-?-?-?-?-?-?-?- 07/17/23 -?-?-?-?-?-?-?-?-?-?-?-?- 24w 1d 145 lb (+25 lb) 24 150 active 110/62 145 lb -?-?-?-?-?-?-?-?-?-?-?-?- 08/13/23 -?-?-?-?-?-?-?-?-?-?-?-?- 28w 0d 151 lb (+31 lb) 27 150 active 102/60 151 lb -?-?-?-?-?-?-?-?-?-?-?-?- 08/27/23 -?-?-?-?-?-?-?-?-?-?-?-?- 30w 0d 148 lb (+28 lb) 271 27 140 active 110/64 148 lb -?-?-?-?-?-?-?-?-?-?-?-?- Notes Visit Date: 08/27/23 Last Updated by: Patience Del Rio CNM Note author: Patience Del Rio CNM/Manager Landscape: Que Grewal. 30wk. ALKA. Not taking PNV or iron this week, Doing well with concerns: nausea, vomiting, viral syndrome since last week. also sick. She is able to tolerate fluids and some foods. Denies any LOF, VB, abd. pain, or urinary symptoms. Good FM. Wearing support hose for her varicosities, helping somewhat. Reviewed: PTL s/s-LOF/Ctx's/VB, when to seek emergent care. discomforts, self help measures. Kick counts/FM and when to call the office for further eval. BRAT diet reviewed/ Hydrate well, 8-10 glasses of water daily, additionally: Gatorade, gingerale, juices, no acidic foods or spices. SMD, plan US for growth. Note for work time off until Thursday. Rx for Zofran. RTO 2wks. Visit Date: 08/13/23 Last Updated by: Patience Del Rio CNM Note author: Patience Del Rio CNM. 28wk. ALKA. Not taking PNV due to GI effects, Concerns: leg discomfort and swelling with veins. Good appetite, stays well hydrated. Denies any LOF, VB, abd. pain or urinary symptoms. Good FM. Plans 28 wk labs this Thursday. EPDS=1. Exam: bilateral leg varicose veins thigh to foot, no edema or erythema. Discussed: PTL s/s-LOF/Ctx's/VB, when to seek emergent care. discomforts, self help measures. Kick counts/FM and when to call the office for further eval. Encouraged a healthy well balanced diet, regular walking/exercise in . Hydrate well, 8-10 glasses of water daily. Jobst stocking: will check insurance coverage and have Rx if needed or option of purchasing on [employer]. Vein care and warnings. Rx for PN gummies. RTO 2 wks. Visit Date: 07/17/23 Last Updated by: Patience Del Rio CNM Note author: Patience Del Rio CNM/Dedra Ken, medical sales specialist 24.1 wk ALKA. Taking PNV. Good FM. Denies LOF, VB or abd pain. Reports feeling dizzy last week, since resolved. Good appetite and stays well hydrated. Has not done GTT yet. Discussed: PTL-LOF, VB, abd pain, ctx and when to call for further evaluation. PEC - headaches: not resolved with 2 regular strength Tylenol doses, visual disturbances warnings and when to call for further evaluation.? FKC: have something to eat and drink, should have 5 kicks in 1hr or 10 kicks in 2 hrs, if not call immediately for evaluation. Staying well hydrated, drink 8-10 glasses of water per day. ?Maintain a healthy diet and light exercise, avoid excess sugars and soda. RTO in 4 weeks. Visit Date: 06/16/23 Last Updated by: Patience Del Rio CNM Note author: Patience Del Rio CNM/Lashawn Wallace medical sales specialist 19.5 wk ALKA. Feeling well. Taking PNV. Hydrating well and good appetite Good FM, no LOF, VB or abd pain. Reports she has a scheduled US on Jun 25; she recently canceled other US for this week due to scheduling at work. Admits she is prone to migraines and sees a Neurologist. Discussed: PTL - LOF, VB, abd pain. Advised to eat small frequent meals, hydrate well with water and stay cool. PEC - headaches: not resolved with 2 regular strength Tylenol doses, visual disturbances warnings and when to call for further evaluation. Reviewed when to call for any VB, LOF, contractions, Kick counts reviewed and when to call for any decreased FM. Encouraged patient to sign up for patient portal. Discussed to call the service here for any emergencies/deliveries to be directed to [facility]. Offer transfer to [facility] to [facility] as she works there, she declines and prefers to continue care here. RTO in 1 month. Visit Date: 05/18/23 Last Updated by: Sheryl Murray CNM Patient is here for an initial visit at 15 weeks and 4 days. She says she has never had a Pap smear she tried a few years ago but she was too tense and scared and could not allow for it to happen. She is and this is a planned and she is very happy. She has been feeling a little bit better from the nausea she does not need to take the vitamin B6 anymore she recently started iron twice a day for the anemia she did is constipated when she takes it but she is eating lots of healthy fresh fruits and vegetables and also taking prune a lax, which is helping. 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 She has not done the sugar test yet because she was nauseous and she is waiting to feel little bit better. Discussed testing evaluations process changes that happen in her body including what to expect for the future. Patient was tense with exam but was able to proceed with pelvic exam unable to reproduce a Kegel. Verbal teaching done. Discussed relaxation and normal see of labor and process and she is interested in classes and will check out [facility] classes as well as online. Initial teaching about and what to expect and how to help the baby get latched on with her well everted nipples done and recommend considering wick childbirth classes as well. RTC 4 weeks reviewed her nuchal translucency which was normal and her normal 1st trimester screening. Will order the anatomy ultrasound for around 20 weeks as well She it had a clean-catch urine with her in initial lab work which was negative however she needed to void with frequency here while she was here so we are sending a clean-catch urine from here as well. She tries to drink lots of water so she thinks that is what it is but were sending it just to be on the safe side. Additionally she complains of recurring the leg cramps at night. She has magnesium at home that she was taking for this in the past but she stopped bothering and I urged her to has restart it again but continue with her water intake as well because that will help with the headaches. Visit Date: 04/16/23 Last Updated by: Soco Prasad LPN Indira is here today for her sawmilling operator at 11wks. G1, pt and her are very happy abut the . 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 She is having some nausea with a few episodes of vomiting. Pt is eating and drinking. She is eating healthy foods, veggies and fruits. She is on Vit B6, and feels it is helping her. Discussed with pt, to eat more frequent smaller amounts of food throughout the day. She will be getting her PNL labs drawn and early 1 hr gtt due to FH of diabetes., CF and UDS. Pt does not smoke , drink or use MJ. Discussed with pt, her u/s and delivery will be at [facility]. Discussed if any problems after hours, how to reach MD meter maintenance person, and to go to [facility] and not [facility] if needed. Pt is interested in childbirth classes in the 3rd trimester.OB physical scheduled. Discussed NT u/s genetic screen, orders sent to [facility] [place] for appt. Discussed and given packet, she was advised to call with any questions or concerns. Results AMB Urinalysis, Automated UA Leukoctes 0 Jessie/uL Last Edit by HEIDI Parks on 08/27/23 08:33 UA Nitrite Negative Last Edit by HEIDI Parks on 08/27/23 08:33 UA Urobilinogen 0 mg/dL Last Edit by HEIDI Parks on 08/27/23 08:3 3 UA Protein 0 mg/dL Last Edit by HEIDI Parks on 08/27/23 08:33 UA pH 7.0 Last Edit by Erica Garcia Neha on 08/27/23 08:33 UA Blood 0 Darinel/uL Last Edit by Erica Garcia A on 08/27/23 08:33 UA Specific Butterfield 1.010 Last Edit by Erica Garcia Neha on 08/27/23 08:33 UA Ketone Negative Last Edit by Erica Garcia A on 08/27/23 08:33 UA Bilirubin 0 mg/dL Last Edit by Erica Garcia A on 08/27/23 08:33 UA Glucose 0 mg/dL Last Edit by Erica Garcia Neha on 08/27/23 08:33 Results Reviewed Results Reviewed: Laboratory Last Values Urine pH (Auto) 7.0 08/27/23 08:31 Specific Butterfield (Auto) 1.010 08/27/23 08:31 Urine Protein (Auto) 0 mg/dL 08/27/23 08:31 Glucose (UA)(Auto) 0 mg/dL 08/27/23 08:31 Urine Ketones (Auto) Negative 08/27/23 08:31 Urine Blood (Auto) 0 Darinel/uL 08/27/23 08:31 Urine Nitrite (Auto) Negative 08/27/23 08:31 Urine Bilirubin (Auto) 0 mg/dL 08/27/23 08:31 Urine Urobilinogen (Auto) 0 mg/dL 08/27/23 08:31 Leukocyte Esterase (Auto) 0 Jessie/uL 08/27/23 08:31 Assessment & Plan Assessment & Plan (1) Small for dates affecting management of mother: Code(s): O36.5990 - Maternal care for other known or suspected poor growth, unspecified trimester, not applicable or unspecified Orders: Orders AMB Urinalysis Automated Today Z34.93 - Encounter for supervision of normal pre gnancy, unspecified, third trimester OB follow up Today O36.5990 - Maternal care for other known or suspected poor growth, unspecified trimester, not applicable or unspecified Medications: New ondansetron 4 mg PO QID PRN 20 tabs 1RF nausea and vomiting Coding Level of Care Code [place] Diagnoses Small for dates affecting management of mother O36.5990
[2023-08-27 08:17] VITALS: BP 110/64; BMI 23.9
== END 2023-08-27 09:07 | disposition home or self-care (01) ==
LOC: HO.HWSW 08:15
PROVIDERS: PCP Internal Medicine; Visit Provider Advanced Practice Midwife
DX: Z34.93 Encounter for supervision of normal pregnancy, unspecified, third trimester (principal); O36.5990 Maternal care for other known or suspected poor fetal growth, unspecified trimester, not applicable or unspecified
CPT/HCPCS: 25942

== ENCOUNTER → 2023-08-27 08:15 | Outpatient (BNVA) | payer OTHER, SELFPAY | PROVIDERS: PCP Internal Medicine; Visit Provider Advanced Practice Midwife | DX: O36.5930 Maternal care for other known or suspected poor fetal growth, third trimester, not applicable or unspecified (principal); O99.013 Anemia complicating pregnancy, third trimester; D64.9 Anemia, unspecified; O26.893 Other specified pregnancy related conditions, third trimester; G43.E09 Chronic migraine with aura, not intractable, without status migrainosus; G47.62 Sleep related leg cramps; O22.03 Varicose veins of lower extremity in pregnancy, third trimester; I83.893 Varicose veins of bilateral lower extremities with other complications; Z3A.30 30 weeks gestation of pregnancy; Z67.40 Type O blood, Rh positive; Z83.3 Family history of diabetes mellitus; Z82.49 Family history of ischemic heart disease and other diseases of the circulatory system | CPT/HCPCS: 81003; 99212 ==

== ENCOUNTER → 2023-09-03 11:20 | Outpatient (BNV) | payer OTHER, SELFPAY | PROVIDERS: PCP Internal Medicine; Visit Provider Internal Medicine Medical Oncology | DX: D64.9 Anemia, unspecified (principal) | CPT/HCPCS: 99204; 99213 ==

== ENCOUNTER 2023-09-03 12:26 | Outpatient (REF) | payer OTHER, SELFPAY ==
[2023-09-03 12:40] LABS: MANUAL DIFF FLAG NO
[2023-09-03 13:02] LABS: Basophils Percent Auto 0.2 % (0-2); Eosinophils Percent Auto 0.8 % (0-4); Hemoglobin 10.3 g/dl (12.0-16.0); Imm Gran Abs Auto 0.03 X10*3/uL (0.00-0.03); Imm Gran Pct Auto 0.6 % (0.0-0.4); Lymphocytes Percent Auto 19.6 % (20-40); Mean Corpuscular HGB Conc 31.2 g/dl (31.0-35.0); Mean Corpuscular Volume 80.1 fL (80.0-98.0); Mean Platelet Volume 11.3 fL (9.4-12.3); Monocytes Absolute Auto 0.4 X10*3/uL (0.1-1.2); Monocytes Percent Auto 8.4 % (2-11); Neutrophils Absolute Auto 3.6 x10*3/uL (2.0-8.3); Neutrophils Percent Auto 70.4 % (45-73); Platelet Count 174 X10*3/uL (160-400); Red Blood Count 4.12 X10*6/uL (4.20-5.50); Red Cell Distribution Width 16.6 % (11.0-16.0); White Blood Count 5.1 X10*3/uL (4.8-10.8)
[2023-09-03 13:45] LABS: Alanine Aminotransferase 44 U/L (0-31); Albumin Level 3.1 g/dL (3.5-5.0); Alkaline Phosphatase 110 U/L (39-117); Anion Gap 9 (12-20); Aspartate Amino Transferase 38 U/L (5-31); Bilirubin Total 0.2 mg/dL (0.0-1.0); Blood Urea Nitrogen 5 mg/dL (9-16); Calcium 8.6 mg/dL (8.4-10.2); Carbon Dioxide 24 mmol/L (22-29); Chloride 108 mmol/L (96-108); Estimated Glomerular Filt Rate > 60; Glucose Random 90 mg/dL (60-115); Iron 26 mcg/dL (30-160); Lactate Dehydrogenase 129 U/L (122-220); Percent Iron Saturation 5 % (15-50); Potassium 3.8 mmol/L (3.3-5.1); Sodium 137 mmol/L (135-145); Total Iron Binding Capacity 488 mcg/dL (228-428); Total Protein 6.7 g/dL (6.5-8.0); Unsaturated Iron Binding 462 ug/dL
[2023-09-03 14:06] LABS: Ferritin 8 ng/mL (10-122)
[2023-09-08 07:48] LABS: Transglutaminase IgA <1.0 U/mL
== END 2023-09-03 12:27 | disposition home or self-care (01) ==
LOC: HO.LAB 12:26
PROVIDERS: PCP Internal Medicine; Visit Provider Internal Medicine Medical Oncology
DX: D64.9 Anemia, unspecified (principal)
CPT/HCPCS: 36415; 80053; 82728; 83540; 83615; 85025; 86364

== ENCOUNTER 2023-09-08 11:24 | Outpatient (AMB) | payer OTHER, SELFPAY ==
[2023-09-08 11:30] VITALS: BP 122/82; BMI 25.2
--- NOTE | 2023-09-08 11:30 | MHC.OFFVISPN ---
Intake Vital Signs 09/08/23 11:30 09/08/23 11:57 Height 5 ft 6 in Weight 156 lb BMI 25.2 BP 122/82 100/68 Intake Visit Reasons: ALKA Intake Note: pt c/o weight gain and leg swelling Allergies cyclobenzaprine Adverse Reaction (Unknown, Verified 09/08/23 11:30) dry mouth and vertigo Patient : Yes PFSH Medical History (Updated 09/03/23 @ 12:39 by Ishan Jones MD) Nocturnal leg cramps Recurrent headache Upper back pain on right side Migraine with aura Surgical History (Updated 09/03/23 @ 12:39 by Ishan Jones MD) No pertinent past surgical history Family History Father Heart disease Mother Diabetes mellitus HTN (hypertension) CVD (cardiovascular disease) Maternal Aunt Diabetes mellitus History of CVA (cerebrovascular accident) Brother No problems noted. Brother No problems noted. Brother No problems noted. Sister No problems noted. Sister No problems noted. (Updated 09/03/23 @ 11:49 by Jimi Christopher) Housing: Apartment Alcohol intake: never Patient Tobacco Use Status: Never used Tobacco e-Cigarette/Vaping Use: Never Used service: No Current occupational status: employed Sexual orientation: Straight/Heterosexual Gender identity: Female Cognitive needs: No Hearing needs: No Vision needs: No Female Reproductive History Menstrual Age of Menarche: 15 History History 1 Elective abortions 0 Para 0 Spontaneous abortions 0 Hx # Term Pregnancies 0 Ectopic pregnancies 0 Hx # Pregnancies 0 Multiple births 0 Visit ANYI Calculator Estimated Delivery Date Method Current WG Current Estimate 11/05/23 Ultrasound #1 31w 5d Other Estimates 11/05/23 LMP (Certain) 31w 5d Expected Delivery Route/Plan Vaginal delivery Specific Issues/Plans OB Problem List: 32 yr. old ? ? G1 ?P0 ? ? ?LMP: 01/29/23 EDC: 11/05/23 ?by sure dates? ? ?Blood type: O pos Problem List: 1. Migraines- has neurologist at [facility], on fioricet- rec only using if really necessary and prioritize water intake. 2. ANEMIA- take iron every other day due to GI effects (constipation) 3. Leg varicosities: plan Rx for Jobst full length maternity hose. Care, warnings discussed 08/13/23 Testing: Panorama/and or First Tri screen: ? ?risk low risk for downs and tri 18. NT scan: wnl First screen: negative FAS: booked 06/25/23 Glucose: early still pending, 05/18? 28 wk glucose: ? CBC 1st Tri: ? ? 10.7/35.6 ? 28 wk. CBC: GBS: Vaccinations: Flu: had at work 07/2023. Covid: Vaxed x 2, had Covid in 2021. 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 [facility] Transportation: Labor, and Concerns: Labor support: Plan: Infant Feeding Plans: breast- initial teaching control: OB Visit Log Initial Weight: 120 lb Date <del>?</del> EGA Weight Gest Week Fundal Ht Present FHR move Efface % Edema BP PrePreg We Weight GTT <del>?</del> Glucose LV Protein Blood Type 04/16/23 <del>?</del> 11w 0d 127 lb 2 oz (+7 lb 2 oz) 127 lb 2 oz <del>?</del> 05/18/23 <del>?</del> 15w 4d 131 lb (+11 lb) 15 150 active 118/66 131 lb <del>?</del> 06/16/23 <del>?</del> 19w 5d 137 lb (+17 lb) 19 150 active 114/74 137 lb <del>?</del> 07/17/23 <del>?</del> 24w 1d 145 lb (+25 lb) 24 150 active 110/62 145 lb <del>?</del> 08/13/23 <del>?</del> 28w 0d 151 lb (+31 lb) 27 150 active 102/60 151 lb <del>?</del> 08/27/23 <del>?</del> 30w 0d 148 lb (+28 lb) 271 27 140 active 110/64 148 lb <del>?</del> 09/08/23 <del>?</del> 31w 5d 156 lb (+36 lb) 30 150 active 122/82 100/68 156 lb <del>?</del> Notes Visit Date: 09/08/23 Last Updated by: Patience Del Rio CNM Note author: Patience Del Rio CNM. 31.5 wk. ALKA. Taking PNV, Appetite improving after flu last week, reports had IV therapy, trying to hydrate. Denies any LOF, VB, abd. pain, or urinary symptoms. Good FM. Reports more tightening last night. Wants to see a vascular doctor and have her veins fixed. Reviewed: PTL s/s-LOF/Ctx's/VB, when to seek emergent care. discomforts, self help measures. Kick counts/FM and when to call for further evaluation. Encouraged a healthy well balanced diet, regular walking/exercise in . Hydrate well, 8-10 glasses of water daily. Advised to check insurance re: Vascular services, most likely after the , may call sooner for a consult. Encouraged to wear her stockings. Tdap at next visit. US follow up is 09/21/23, pt's. preference with work schedule. RTO 2. Visit Date: 08/27/23 Last Updated by: Patience Del Rio CNM Note author: Patience Del Rio CNM/Document Control Associate: Que Grewal. 30wk. ALKA. Not taking PNV or iron this week, Doing well with concerns: nausea, vomiting, viral syndrome since last week. also sick. She is able to tolerate fluids and some foods. Denies any LOF, VB, abd. pain, or urinary symptoms. Good FM. Wearing support hose for her varicosities, helping somewhat. Reviewed: PTL s/s-LOF/Ctx's/VB, when to seek emergent care. discomforts, self help measures. Kick counts/FM and when to call the office for further eval. BRAT diet reviewed/ Hydrate well, 8-10 glasses of water daily, additionally: Gatorade, gingerale, juices, no acidic foods or spices. SMD, plan US for growth. Note for work time off until Thursday. Rx for Zofran. RTO 2wks. Visit Date: 08/13/23 Last Updated by: Patience Del Rio CNM Note author: Patience Del Rio CNM. 28wk. ALKA. Not taking PNV due to GI effects, Concerns: leg discomfort and swelling with veins. Good appetite, stays well hydrated. Denies any LOF, VB, abd. pain or urinary symptoms. Good FM. Plans 28 wk labs this Thursday. EPDS=1. Exam: bilateral leg varicose veins thigh to foot, no edema or erythema. Discussed: PTL s/s-LOF/Ctx's/VB, when to seek emergent care. discomforts, self help measures. Kick counts/FM and when to call the office for further eval. Encouraged a healthy well balanced diet, regular walking/exercise in . Hydrate well, 8-10 glasses of water daily. Jobst stocking: will check insurance coverage and have Rx if needed or option of purchasing on [employer]. Vein care and warnings. Rx for PN gummies. RTO 2 wks. Visit Date: 07/17/23 Last Updated by: Patience Del Rio CNM Note author: Patience Del Rio CNM/Dedra Ken, medical affairs specialist 24.1 wk ALKA. Taking PNV. Good FM. Denies LOF, VB or abd pain. Reports feeling dizzy last week, since resolved. Good appetite and stays well hydrated. Has not done GTT yet. Discussed: PTL-LOF, VB, abd pain, ctx and when to call for further evaluation. PEC - headaches: not resolved with 2 regular strength Tylenol doses, visual disturbances warnings and when to call for further evaluation.? FKC: have something to eat and drink, should have 5 kicks in 1hr or 10 kicks in 2 hrs, if not call immediately for evaluation. Staying well hydrated, drink 8-10 glasses of water per day. ?Maintain a healthy diet and light exercise, avoid excess sugars and soda. RTO in 4 weeks. Visit Date: 06/16/23 Last Updated by: Patience Del Rio CNM Note author: Patience Del Rio CNM/Lashawn Wallace medical affairs specialist 19.5 wk ALKA. Feeling well. Taking PNV. Hydrating well and good appetite Good FM, no LOF, VB or abd pain. Reports she has a scheduled US on Jun 25; she recently canceled other US for this week due to scheduling at work. Admits she is prone to migraines and sees a Neurologist. Discussed: PTL - LOF, VB, abd pain. Advised to eat small frequent meals, hydrate well with water and stay cool. PEC - headaches: not resolved with 2 regular strength Tylenol doses, visual disturbances warnings and when to call for further evaluation. Reviewed when to call for any VB, LOF, contractions, Kick counts reviewed and when to call for any decreased FM. Encouraged patient to sign up for patient portal. Discussed to call the service here for any emergencies/deliveries to be directed to [facility]. Offer transfer to [facility] to [facility] as she works there, she declines and prefers to continue care here. RTO in 1 month. Visit Date: 05/18/23 Last Updated by: Sheryl Murray CNM Patient is here for an initial visit at 15 weeks and 4 days. She says she has never had a Pap smear she tried a few years ago but she was too tense and scared and could not allow for it to happen. She is and this is a planned and she is very happy. She has been feeling a little bit better from the nausea she does not need to take the vitamin B6 anymore she recently started iron twice a day for the anemia she did is constipated when she takes it but she is eating lots of healthy fresh fruits and vegetables and also taking prune a lax, which is helping. 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 She has not done the sugar test yet because she was nauseous and she is waiting to feel little bit better. Discussed testing evaluations process changes that happen in her body including what to expect for the future. Patient was tense with exam but was able to proceed with pelvic exam unable to reproduce a Kegel. Verbal teaching done. Discussed relaxation and normal see of labor and process and she is interested in classes and will check out [facility] classes as well as online. Initial teaching about and what to expect and how to help the baby get latched on with her well everted nipples done and recommend considering wick childbirth classes as well. RTC 4 weeks reviewed her nuchal translucency which was normal and her normal 1st trimester screening. Will order the anatomy ultrasound for around 20 weeks as well She it had a clean-catch urine with her in initial lab work which was negative however she needed to void with frequency here while she was here so we are sending a clean-catch urine from here as well. She tries to drink lots of water so she thinks that is what it is but were sending it just to be on the safe side. Additionally she complains of recurring the leg cramps at night. She has magnesium at home that she was taking for this in the past but she stopped bothering and I urged her to has restart it again but continue with her water intake as well because that will help with the headaches. 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 G1, pt and her are very happy abut the . 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 She is having some nausea with a few episodes of vomiting. Pt is eating and drinking. She is eating healthy foods, veggies and fruits. She is on Vit B6, and feels it is helping her. Discussed with pt, to eat more frequent smaller amounts of food throughout the day. She will be getting her PNL labs drawn and early 1 hr gtt due to FH of diabetes., CF and UDS. Pt does not smoke , drink or use MJ. Discussed with pt, her u/s and delivery will be at [facility]. Discussed if any problems after hours, how to reach MD airborne operations manager, and to go to [facility] and not [facility] if needed. Pt is interested in childbirth classes in the 3rd trimester.OB physical scheduled. Discussed NT u/s genetic screen, orders sent to [facility] for appt. Discussed and given packet, she was advised to call with any questions or concerns. Results AMB Urinalysis, Automated UA Leukoctes 0 Jessie/uL Last Edit by Erica Garcia [facility] on 09/08/23 11:40 UA Nitrite Negative Last Edit by Erica Garcia [facility] on 09/08/23 11:40 UA Urobilinogen 0 mg/dL Last Edit by Erica Garcia [facility] on 09/08/23 11:40 UA Protein 0 mg/dL Last Edit by Erica Garcia [facility] on 09/08/23 11:40 UA pH 7.0 Last Edit by Erica Garcia [facility] on 09/08/23 11:40 UA Blood 0 Darinel/uL Last Edit by Erica Garcia [facility] on 09/08/23 11:40 UA Specific Dryden 1.010 Last Edit by Erica Garcia [facility] on 09/08/23 11:40 UA Ketone Negative Last Edit by Erica Garcia [facility] on 09/08/23 11:40 UA Bilirubin 0 mg/dL Last Edit by Erica Garcia [facility] on 09/08/23 11:40 UA Glucose 0 mg/dL Last Edit by Erica Garcia [facility] on 09/08/23 11:40 Results Reviewed Results Reviewed: Laboratory Last Values Urine pH (Auto) 7.0 09/08/23 11:39 Specific Dryden (Auto) 1.010 09/08/23 11:39 Urine Protein (Auto) 0 mg/dL 09/08/23 11:39 Glucose (UA)(Auto) 0 mg/dL 09/08/23 11:39 Urine Ketones (Auto) Negative 09/08/23 11:39 Urine Blood (Auto) 0 Darinel/uL 09/08/23 11:39 Urine Nitrite (Auto) Negative 09/08/23 11:39 Urine Bilirubin (Auto) 0 mg/dL 09/08/23 11:39 Urine Urobilinogen (Auto) 0 mg/dL 09/08/23 11:39 Leukocyte Esterase (Auto) 0 Jessie/uL 09/08/23 11:39 Assessment & Plan Assessment & Plan Orders: Orders AMB Urinalysis Automated Today Z34.93 - Encounter for supervision of normal , unspecified, third trimester Coding Level of Care Code Hernán
[2023-09-08 11:57] VITALS: BP 100/68
== END 2023-09-08 12:01 | disposition home or self-care (01) ==
LOC: HO.HWS 11:24
PROVIDERS: PCP Internal Medicine; Visit Provider Advanced Practice Midwife
DX: Z34.93 Encounter for supervision of normal pregnancy, unspecified, third trimester (principal)
CPT/HCPCS: 25942

== ENCOUNTER → 2023-09-08 11:24 | Outpatient (BNVA) | payer OTHER, SELFPAY | PROVIDERS: PCP Internal Medicine; Visit Provider Advanced Practice Midwife | DX: Z34.93 Encounter for supervision of normal pregnancy, unspecified, third trimester (principal) | CPT/HCPCS: 81003; 99212 ==

== ENCOUNTER 2023-09-24 11:24 | Outpatient (AMB) | payer OTHER, SELFPAY ==
[2023-09-24 11:26] VITALS: BP 116/68; BMI 25.5
--- NOTE | 2023-09-24 11:26 | A.OFFVISPN_ITS ---
Intake Vital Signs 09/24/23 11:26 Height 5 ft 6 in Weight 158 lb BMI 25.5 BP 116/68 Intake Visit Reasons: ALKA Allergies cyclobenzaprine Adverse Reaction (Unknown, Verified 09/24/23 11:26) dry mouth and vertigo Patient : Yes PFSH Medical History (Updated 09/03/23 @ 12:39 by Ishan Jones MD) Nocturnal leg cramps Recurrent headache Upper back pain on right side Migraine with aura Surgical History (Updated 09/03/23 @ 12:39 by Ishan Jones MD) No pertinent past surgical history Family History (Updated 09/24/23 @ 11:49 by Patience Del Rio CNM) Father Heart disease Mother Diabetes mellitus HTN (hypertension) CVD (cardiovascular disease) Maternal Aunt Diabetes mellitus History of CVA (cerebrovascular accident) Brother No problems noted. Brother No problems noted. Brother No problems noted. Sister No problems noted. Sister No problems noted. Social History (Updated 09/03/23 @ 11:49 by Jimi Christopher) Housing: Apartment Alcohol intake: never Patient Tobacco Use Status: Never used Tobacco e-Cigarette/Vaping Use: Never Used service: No Current occupational status: employed Sexual orientation: Straight/Heterosexual Gender identity: Female Cognitive needs: No Hearing needs: No Vision needs: No Female Reproductive History Menstrual Age of Menarche: 15 History History 1 Elective abortions 0 Para 0 Spontaneous abortions 0 Hx # Term Pregnancies 0 Ectopic pregnancies 0 Hx # Pregnancies 0 Multiple births 0 Visit ANYI Calculator Estimated Delivery Date Method Current WG Current Estimate 11/05/23 Ultrasound #1 34w 0d Other Estimates 11/05/23 LMP (Certain) 34w 0d Expected Delivery Route/Plan Vaginal delivery Specific Issues/Plans OB Problem List: 32 yr. old ? ? G1 ?P0 ? ? ?LMP: 01/29/23 EDC: 11/05/23 ?by sure dates? ? ?Blood type: O pos Problem List: 1. Migraines- has neurologist at [facility], on fioricet- rec only using if really necessary and prioritize water intake. 2. ANEMIA- take iron every other day due to GI effects (constipation) 3. Leg varicosities: plan Rx for Jobst full length maternity hose. Care, warnings discussed 08/13/23 4. FH DM-mother Testing: Panorama/and or First Tri screen: ? ?risk low risk for downs and tri 18. NT scan: wnl First screen: negative FAS: booked 06/25/23 Glucose: early still pending, 05/18? 28 wk glucose: ?62 CBC 1st Tri: ? ? 10.7/35.6 ? 28 wk. CBC: 10.3 GBS: Vaccinations: Flu: had at work 07/2023. Covid: Vaxed x 2, had Covid in 2021. 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- 19w 5d 137 lb (+17 lb) 19 150 active 114/74 137 lb -?-?-?-?-?-?-?-?-?-?-?-?- 07/17/23 -?-?-?-?-?-?-?-?-?-?-?-?- 24w 1d 145 lb (+25 lb) 24 150 active 110/62 145 lb -?-?-?-?-?-?-?-?-?-?-?-?- 08/13/23 -?-?-?-?-?-?-?-?-?-?-?-?- 28w 0d 151 lb (+31 lb) 27 150 active 102/60 151 lb -?-?-?-?-?-?-?-?-?-?-?-?- 08/27/23 -?-?-?-?-?-?-?-?-?-?-?-?- 30w 0d 148 lb (+28 lb) 271 27 140 active 110/64 148 lb -?-?-?-?-?-?-?-?-?-?-?-?- 09/08/23 -?-?-?-?-?-?-?-?-?-?-?-?- 31w 5d 156 lb (+36 lb) 30 150 active 122/82 100/68 156 lb -?-?-?-?-?-?-?-?-?-?-?-?- 09/24/23 -?-?-?-?-?-?-?-?-?-?-?-?- 34w 0d 158 lb (+38 lb) 32 150 active 116/68 158 lb -?-?-?-?-?-?-?-?-?-?-?-?- Notes Visit Date: 09/24/23 Last Updated by: Patience Del Rio CNM Note author: Patience Del Rio CNM. 34wk. ALKA. Taking PNV and iron, Doing well with no concerns. Good appetite, stays well hydrated. Denies any LOF, VB, abd. pain. or urinary symptoms. Good FM. Reports some LE swelling, wears support hose. Interested in the ParaGard , booklet given for review advised we can order it before she delivers. Ultrasound reviewed growth in the 74th percentile. Reviewed: PTL s/s-LOF/Ctx's/VB, when to seek emergent care. discomforts, self help measures. Kick counts/FM and when to call for further evaluation. Encouraged a healthy well balanced diet, regular walking/exercise in . Hydrate well, 8-10 glasses of water daily. Tdap today. RTO 2. Visit Date: 09/08/23 Last Updated by: Patience Del Rio CNM Note author: Patience Del Rio CNM. 31.5 wk. ALKA. Taking PNV, Appetite improving after flu last week, reports had IV therapy, trying to hydrate. Denies any LOF, VB, abd. pain, or urinary symptoms. Good FM. Reports more tightening last night. Wants to see a vascular doctor and have her veins fixed. Reviewed: PTL s/s-LOF/Ctx's/VB, when to seek emergent care. discomforts, self help measures. Kick counts/FM and when to call for further evaluation. Encouraged a healthy well balanced diet, regular walking/exercise in . Hydrate well, 8-10 glasses of water daily. Advised to check insurance re: Vascular services, most likely after the , may call sooner for a consult. Encouraged to wear her stockings. Tdap at next visit. US follow up is 09/21/23, pt's. preference with work schedule. RTO 2. Visit Date: 08/27/23 Last Updated by: Patience Del Rio CNM Note author: Patience Del Rio CNM/Bottler: Que Grewal. 30wk. ALKA. Not taking PNV or iron this week, Doing well with concerns: felicitas sea, vomiting, viral syndrome since last week. also sick. She is able to tolerate fluids and some foods. Denies any LOF, VB, abd. pain, or urinary symptoms. Good FM. Wearing support hose for her varicosities, helping somewhat. Reviewed: PTL s/s-LOF/Ctx's/VB, when to seek emergent care. discomforts, self help measures. Kick counts/FM and when to call the office for further eval. BRAT diet reviewed/ Hydrate well, 8-10 glasses of water daily, additio justina: Gatorade, gingerale, juices, no acidic foods or spices. SMD, plan US for growth. Note for work time off until Thursday. Rx for Zofran. RTO 2wks. Visit Date: 08/13/23 Last Updated by: Patience Del Rio CNM Note author: Patience Del Rio CNM. 28wk. ALKA. Not taking PNV due to GI effects, Concerns: leg discomfort and swelling with veins. Good appetite, stays well hydrated. Denies any LOF, VB, abd. pain or urinary symptoms. Good FM. Plans 28 wk labs this Thursday. EPDS=1. Exam: bilateral leg varicose veins thigh to foot, no edema or erythema. Discussed: PTL s/s-LOF/Ctx's/VB, when to seek emergent care. discomforts, self help measures. Kick counts/FM and when to call the office for further eval. Encouraged a healthy well balanced diet, regular walking/exercise in . Hydrate well, 8-10 glasses of water daily. Jobst stocking: will check insurance coverage and have Rx if needed or option of purchasing on [employer]. Vein care and warnings. Rx for PN gummies. RTO 2 wks. Visit Date: 07/17/23 Last Updated by: Patience Del Rio CNM Note author: Patience Del Rio CNM/Dedra Ken, medical billing representative 24.1 wk ALKA. Taking PNV. Good FM. Denies LOF, VB or abd pain. Reports feeling dizzy last week, since resolved. Good appetite and stays well hydrated. Has not done GTT yet. Discussed: PTL-LOF, VB, abd pain, ctx and when to call for further evaluation. PEC - headaches: not resolved with 2 regular strength Tylenol doses, visual disturbances warnings and when to call for further evaluation.? FKC: have something to eat and drink, should have 5 kicks in 1hr or 10 kicks in 2 hrs, if not call immediately for evaluation. Staying well hydrated, drink 8-10 glasses of water per day. ?Maintain a healthy diet and light exercise, avoid excess sugars and soda. RTO in 4 weeks. Visit Date: 06/16/23 Last Updated by: Patience Del Rio CNM Note author: Patience Del Rio CNM/Lashawn Wallace medical billing representative 19.5 wk ALKA. Feeling well. Taking PNV. Hydrating well and good appetite Good FM, no LOF, VB or abd pain. Reports she has a scheduled US on Jun 25; she recently canceled other US for this week due to scheduling at work. Admits she is prone to migraines and sees a Neurologist. Discussed: PTL - LOF, VB, abd pain. Advised to eat small frequent meals, hydrate well with water and stay cool. PEC - headaches: not resolved with 2 regular strength Tylenol doses, visual disturbances warnings and when to call for further evaluation. Reviewed when to call for any VB, LOF, contractions, Kick counts reviewed and when to call for any decreased FM. Encouraged patient to sign up for patient portal. Discussed to call the service here for any emergencies/deliveries to be directed to [facility]. Offer transfer to [facility] to [facility] as she works there, she declines and prefers to continue care here. RTO in 1 month. Visit Date: 05/18/23 Last Updated by: Sheryl Murray CNM Patient is here for an initial visit at 15 weeks and 4 days. She says she has never had a Pap smear she tried a few years ago but she was too tense and scared and could not allow for it to happen. She is and this is a planned and she is very happy. She has been feeling a little bit better from the nausea she does not need to take the vitamin B6 anymore she recently started iron twice a day for the anemia she did is constipated when she takes it but she is eating lots of healthy fresh fruits and vegetables and also taking prune a lax, which is helping. 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 She has not done the sugar test yet because she was nauseous and she is waiting to feel little bit better. Discussed testing evaluations process changes that happen in her body including what to expect for the future. Patient was tense with exam but was able to proceed with pelvic exam unable to reproduce a Kegel. Verbal teaching done. Discussed relaxation and normal see of labor and process and she is interested in classes and will check out [facility] classes as well as online. Initial teaching about and what to expect and how to help the baby get latched on with her well everted nipples done and recommend considering wick childbirth classes as well. RTC 4 weeks reviewed her nuchal translucency which was normal and her normal 1st trimester screening. Will order the anatomy ultrasound for around 20 weeks as well She it had a clean-catch urine with her in initial lab work which was negative however she needed to void with frequency here while she was here so we are sending a clean-catch urine from here as well. She tries to drink lots of water so she thinks that is what it is but were sending it just to be on the safe side. Additionally she complains of recurring the leg cramps at night. She has magnesium at home that she was taking for this in the past but she stopped bothering and I urged her to has restart it again but continue with her water intake as well because that will help with the headaches. Visit Date: 04/16/23 Last Updated by: Soco Prasad LPN Indira is here today for her panel instrument repairer at 11wks. G1, pt and her are very happy abut the . 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 She is having some nausea with a few episodes of vomiting. Pt is eating and drinking. She is eating healthy foods, veggies and fruits. She is on Vit B6, and feels it is helping her. Discussed with pt, to eat more frequent smaller amounts of food throughout the day. She will be getting her PNL labs drawn and early 1 hr gtt due to FH of diabetes., CF and UDS. Pt does not smoke , drink or use MJ. Discussed with pt, her u/s and delivery will be at [facility]. Discussed if any problems after hours, how to reach MD security operations specialist, and to go to [facility] and not [facility] if needed. Pt is interested in childbirth classes in the 3rd trimester.OB physical scheduled. Discussed NT u/s genetic screen, orders sent to [facility] for appt. Discussed and given packet, she was advised to call with any questions or concerns. Results AMB Urinalysis, Automated UA Leukoctes 0 Jessie/uL Last Edit by HEIDI Parks on 09/24/23 11:44 UA Nitrite Negative Last Edit by HEIDI Parks on 09/24/23 11:44 UA Urobilinogen 0 mg/dL Last Edit by Eriac Garcia Neha on 09/24/23 11:4 4 UA Protein 0 mg/dL Last Edit by Erica Garcia Neha on 09/24/23 11:44 UA pH 6.0 Last Edit by Erica Garcia Neha on 09/24/23 11:44 UA Blood 0 Darinel/uL Last Edit by Erica Garcia [facility] on 09/24/23 11:44 UA Specific [place] 1.020 Last Edit by Erica Garcia Neha on 09/24/23 11:44 UA Ketone Negative Last Edit by Erica Garcia Neha on 09/24/23 11:44 UA Bilirubin 0 mg/dL Last Edit by Erica Garcia Neha on 09/24/23 11:44 UA Glucose 0 mg/dL Last Edit by Erica Garcia Neha on 09/24/23 11:44 Coding Level of Care Code [place] Assessment & Plan Assessment & Plan Orders: Orders TDaP Immunization Today Z34.93 - Encounter for supervision of normal , unspecified, third trimester AMB Urinalysis Automated Today Z34.93 - Encounter for supervision of normal , unspecified, third trimester Medications: New Boostrix Tdap (diphth,pertus(acell),tetanus) 0.5 mL IM ONCE 0.5 mL 0RF NS Z34.93 - Encounter for supervision of normal , unspecified, third trimester
== END 2023-09-24 12:08 | disposition home or self-care (01) ==
LOC: HO.HWSW 11:24
PROVIDERS: PCP Internal Medicine; Visit Provider Advanced Practice Midwife
DX: Z34.93 Encounter for supervision of normal pregnancy, unspecified, third trimester (principal)
CPT/HCPCS: 25942

== ENCOUNTER → 2023-09-24 11:24 | Outpatient (BNVA) | payer OTHER, SELFPAY | PROVIDERS: PCP Internal Medicine; Visit Provider Advanced Practice Midwife | DX: O99.013 Anemia complicating pregnancy, third trimester (principal); D64.9 Anemia, unspecified; O99.353 Diseases of the nervous system complicating pregnancy, third trimester; G43.909 Migraine, unspecified, not intractable, without status migrainosus; O99.413 Diseases of the circulatory system complicating pregnancy, third trimester; I83.90 Asymptomatic varicose veins of unspecified lower extremity; Z3A.34 34 weeks gestation of pregnancy; Z23 Encounter for immunization | CPT/HCPCS: 81003; 90471; 90715; 99212 ==

== ENCOUNTER 2023-10-05 11:21 | Outpatient (AMB) | payer OTHER, SELFPAY ==
[2023-10-05 11:24] VITALS: BP 106/74; BMI 25.5
--- NOTE | 2023-10-05 11:24 | A.OFFVISPN_ITS ---
Intake Vital Signs 10/05/23 11:24 Height 5 ft 6 in Weight 158 lb BMI 25.5 BP 106/74 Intake Visit Reasons: ALKA Allergies cyclobenzaprine Adverse Reaction (Unknown, Verified 10/05/23 11:24) dry mouth and vertigo Patient : Yes PFSH Medical History (Updated 09/03/23 @ 12:39 by Ishan Jones MD) Nocturnal leg cramps Recurrent headache Upper back pain on right side Migraine with aura Surgical History (Updated 09/03/23 @ 12:39 by Ishan Jones MD) No pertinent past surgical history Family History (Updated 09/24/23 @ 11:49 by Patience Del Rio CNM) Father Heart disease Mother Diabetes mellitus HTN (hypertension) CVD (cardiovascular disease) Maternal Aunt Diabetes mellitus History of CVA (cerebrovascular accident) Brother No problems noted. Brother No problems noted. Brother No problems noted. Sister No problems noted. Sister No problems noted. Social History (Updated 09/03/23 @ 11:49 by Jimi Christopher) Housing: Apartment Alcohol intake: never Patient Tobacco Use Status: Never used Tobacco e-Cigarette/Vaping Use: Never Used Patient : Yes service: No Current occupational status: employed Sexual orientation: Straight/Heterosexual Gender identity: Female Cognitive needs: No Hearing needs: No Vision needs: No Female Reproductive History Menstrual Age of Menarche: 15 History History 1 Elective abortions 0 Para 0 Spontaneous abortions 0 Hx # Term Pregnancies 0 Ectopic pregnancies 0 Hx # Pregnancies 0 Multiple births 0 Visit ANIY Calculator Estimated Delivery Date Method Current WG Current Estimate 11/05/23 Ultrasound #1 35w 4d Other Estimates 11/05/23 LMP (Certain) 35w 4d Expected Delivery Route/Plan Vaginal delivery Specific Issues/Plans OB Problem List: 32 yr. old ? ? G1 ?P0 ? ? ?LMP: 01/29/23 EDC: 11/05/23 ?by sure dates? ? ?Blood type: O pos Problem List: 1. Migraines- has neurologist at [facility], on fioricet- rec only using if really necessary and prioritize water intake. 2. ANEMIA- take iron every other day due to GI effects (constipation) 3. Leg varicosities: plan Rx for Jobst full length maternity hose. Care, warnings discussed 08/13/23 4. FH DM-mother Testing: Panorama/and or First Tri screen: ? ?risk low risk for downs and tri 18. NT scan: wnl First screen: negative FAS: booked 06/25/23 Glucose: early still pending, 05/18? 28 wk glucose: ?62 CBC 1st Tri: ? ? 10.7/35.6 ? 28 wk. CBC: 10.3 GBS: Vaccinations: Flu: had at work 07/2023. Covid: Vaxed x 2, had Covid in 2021. 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- 19w 5d 137 lb (+17 lb) 19 150 active 114/74 137 lb -?-?-?-?-?-?-?-?-?-?-?-?- 07/17/23 -?-?-?-?-?-?-?-?-?-?-?-?- 24w 1d 145 lb (+25 lb) 24 150 active 110/62 145 lb -?-?-?-?-?-?-?-?-?-?-?-?- 08/13/23 -?-?-?-?-?-?-?-?-?-?-?-?- 28w 0d 151 lb (+31 lb) 27 150 active 102/60 151 lb -?-?-?-?-?-?-?-?-?-?-?-?- 08/27/23 -?-?-?-?-?-?-?-?-?-?-?-?- 30w 0d 148 lb (+28 lb) 271 27 140 active 110/64 148 lb -?-?-?-?-?-?-?-?-?-?-?-?- 09/08/23 -?-?-?-?-?-?-?-?-?-?-?-?- 31w 5d 156 lb (+36 lb) 30 150 active 122/82 100/68 156 lb -?-?-?-?-?-?-?-?-?-?-?-?- 09/24/23 -?-?-?-?-?-?-?-?-?-?-?-?- 34w 0d 158 lb (+38 lb) 32 150 active 116/68 158 lb -?-?-?-?-?-?-?-?-?-?-?-?- 10/05/23 -?-?-?-?-?-?-?-?-?-?-?-?- 35w 4d 158 lb (+38 lb) 33 140 absent 106/74 158 lb -?-?-?-?-?-?-?-?-?-?-?-?- Notes Visit Date: 10/05/23 Last Updated by: Patience Del Rio CNM Note author: Patience Del Rio CNM. 35.4wk. ALKA. Taking PNV, Doing well with no concerns. Good appetite, stays well hydrated. Denies any LOF, VB, abd. pain or urinary symptoms. Good FM. Reviewed: PTL s/s-LOF/Ctx's/VB, when to seek emergent care. discomforts, self help measures. FMC and when to call for further evaluation. Encouraged a healthy well balanced diet, regular walking/exercise in . Hydrate well, 8-10 glasses of water daily. GBS next visit. RTO 1wk. Visit Date: 09/24/23 Last Updated by: Patience Del Rio CNM Note author: Patience Del Rio CNM. 34wk. ALKA. Taking PNV and iron, Doing well with no concerns. Good appetite, stays well hydrated. Denies any LOF, VB, abd. pain. or urinary symptoms. Good FM. Reports some LE swelling, wears support hose. Interested in the ParaGard , booklet given for review advised we can order it before she delivers. Ultrasound reviewed growth in the 74th percentile. Reviewed: PTL s/s-LOF/Ctx's/VB, when to seek emergent care. discomforts, self help measures. Kick counts/FM and when to call for further evaluation. Encouraged a healthy well balanced diet, regular walking/exercise in . Hydrate well, 8-10 glasses of water daily. Tdap today. RTO 2. Visit Date: 09/08/23 Last Updated by: Patience Del Rio CNM Note author: Patience Del Rio CNM. 31.5 wk. ALKA. Taking PNV, Appetite improving after flu last week, reports had IV therapy, trying to hydrate. Denies any LOF, VB, abd. pain, or urinary symptoms. Good FM. Reports more tightening last night. Wants to see a vascular doctor and have her veins fixed. Reviewed: PTL s/s-LOF/Ctx's/VB, when to seek emergent care. discomforts, self help measures. Kick counts/FM and when to call for further evaluation. Encouraged a healthy well balanced diet, regular walking/exercise in . Hydrate well, 8-10 glasses of water daily. Advised to check insurance re: Vascular services, most likely after the , may call sooner for a consult. Encouraged to wear her stockings. Tdap at next visit. US follow up is 09/21/23, pt's. preference with work schedule. RTO 2. Visit Date: 08/27/23 Last Updated by: Patience Del Rio CNM Note author: Patience Del Rio CNM/Rotary Envelope Machine Operator: Que Grewal. 30wk. ALKA. Not taking PNV or iron this week, Doing well with concerns: nausea, vomiting, viral syndrome since last week. also sick. She is able to tolerate fluids and some foods. Denies any LOF, VB, abd. pain, or urinary symptoms. Good FM. Wearing support hose for her varicosities, helping somewhat. Reviewed: PTL s/s-LOF/Ctx's/VB, when to seek emergent care. discomforts, self help measures. Kick counts/FM and when to call the office for further eval. BRAT diet reviewed/ Hydrate well, 8-10 glasses of water daily, additionally: Gatorade, gingerale, juices, no acidic foods or spices. SMD, plan US for growth. Note for work time off until Thursday. Rx for Zofran. RTO 2wks. Visit Date: 08/13/23 Last Updated by: Patience Del Rio CNM Note author: Patience Del Rio CNM. 28wk. ALKA. Not taking PNV due to GI effects, Concerns: leg discomfort and swelling with veins. Good appetite, stays well hydrated. Denies any LOF, VB, abd. pain or urinary symptoms. Good FM. Plans 28 wk labs this Thursday. EPDS=1. Exam: bilateral leg varicose veins thigh to foot, no edema or erythema. Discussed: PTL s/s-LOF/Ctx's/VB, when to seek emergent care. discomforts, self help measures. Kick counts/FM and when to call the office for further eval. Encouraged a healthy well balanced diet, regular walking/exercise in . Hydrate well, 8-10 glasses of water daily. Jobst stocking: will check insurance coverage and have Rx if needed or option of purchasing on [employer]. Vein care and warnings. Rx for PN gummies. RTO 2 wks. Visit Date: 07/17/23 Last Updated by: Patience Del Rio CNM Note author: Patience Del Rio CNM/Dedra Ken, medical clerical assistant 24.1 wk ALKA. Taking PNV. Good FM. Denies LOF, VB or abd pain. Reports feeling dizzy last week, since resolved. Good appetite and stays well hydrated. Has not done GTT yet. Discussed: PTL-LOF, VB, abd pain, ctx and when to call for further evaluation. PEC - headaches: not resolved with 2 regular strength Tylenol doses, visual disturbances warnings and when to call for further evaluation.? FKC: have something to eat and drink, should have 5 kicks in 1hr or 10 kicks in 2 hrs, if not call immediately for evaluation. Staying well hydrated, drink 8-10 glasses of water per day. ?Maintain a healthy diet and light exercise, avoid excess sugars and soda. RTO in 4 weeks. Visit Date: 06/16/23 Last Updated by: Patience Del Rio CNM Note author: Patience Del Rio CNM/Lashawn Wallace medical clerical assistant 19.5 wk ALKA. Feeling well. Taking PNV. Hydrating well and good appetite Good FM, no LOF, VB or abd pain. Reports she has a scheduled US on Jun 25; she recently canceled other US for this week due to scheduling at work. Admits she is prone to migraines and sees a Neurologist. Discussed: PTL - LOF, VB, abd pain. Advised to eat small frequent meals, hydrate well with water and stay cool. PEC - headaches: not resolved with 2 regular strength Tylenol doses, visual disturbances warnings and when to call for further evaluation. Reviewed when to call for any VB, LOF, contractions, Kick counts reviewed and when to call for any decreased FM. Encouraged patient to sign up for patient portal. Discussed to call the service here for any emergencies/deliveries to be directed to [facility]. Offer transfer to [facility] to [facility] as she works there, she declines and prefers to continue care here. RTO in 1 month. Visit Date: 05/18/23 Last Updated by: Sheryl Murray CNM Patient is here for an initial visit at 15 weeks and 4 days. She says she has never had a Pap smear she tried a few years ago but she was too tense and scared and could not allow for it to happen. She is and this is a planned and she is very happy. She has been feeling a little bit better from the nausea she does not need to take the vitamin B6 anymore she recently started iron twice a day for the anemia she did is constipated when she takes it but she is eating lots of healthy fresh fruits and vegetables and also taking prune a lax, which is helping. 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 She has not done the sugar test yet because she was nauseous and she is waiting to feel little bit better. Discussed testing evaluations process changes that happen in her body including what to expect for the future. Patient was tense with exam but was able to proceed with pelvic exam unable to reproduce a Kegel. Verbal teaching done. Discussed relaxation and normal see of labor and process and she is interested in classes and will check out [facility] classes as well as online. Initial teaching about and what to expect and how to help the baby get latched on with her well everted nipples done and recommend considering wick childbirth classes as well. RTC 4 weeks reviewed her nuchal translucency which was normal and her normal 1st trimester screening. Will order the anatomy ultrasound for around 20 weeks as well She it had a clean-catch urine with her in initial lab work which was negative however she needed to void with frequency here while she was here so we are sending a clean-catch urine from here as well. She tries to drink lots of water so she thinks that is what it is but were sending it just to be on the safe side. Additionally she complains of recurring the leg cramps at night. She has magnesium at home that she was taking for this in the past but she stopped bothering and I urged her to has restart it again but continue with her water intake as well because that will help with the headaches. Visit Date: 04/16/23 Last Updated by: Soco Prasad LPN Indira is here today for her jig grinder set up operator at 11wks. G1, pt and her are very happy abut the . 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 She is having some nausea with a few episodes of vomiting. Pt is eating and drinking. She is eating healthy foods, veggies and fruits. She is on Vit B6, and feels it is helping her. Discussed with pt, to eat more frequent smaller amounts of food throughout the day. She will be getting her PNL labs drawn and early 1 hr gtt due to FH of diabetes., CF and UDS. Pt does not smoke , drink or use MJ. Discussed with pt, her u/s and delivery will be at [facility]. Discussed if any problems after hours, how to reach MD strike planning applications, and to go to [facility] and not [facility] if needed. Pt is interested in childbirth classes in the 3rd trimester.OB physical scheduled. Discussed NT u/s genetic screen, orders sent to [facility] for appt. Discussed and given packet, she was advised to call with any questions or concerns. Results AMB Urinalysis, Automated UA Leukoctes 0.5 Jessie/uL Last Edit by Erica Garcia [facility] on 10/05/23 11:3 7 UA Nitrite Negative Last Edit by Erica Garcia [facility] on 10/05/23 11:37 UA Urobilinogen 0 mg/dL Last Edit by Erica Garcia [facility] on 10/05/23 11:3 7 UA Protein 0.5 mg/dL Last Edit by Erica Garcia [facility] on 10/05/23 11:37 UA pH 7.0 Last Edit by Erica Garcia [facility] on 10/05/23 11:37 UA Blood 0 Darinel/uL Last Edit by Erica Garcia Neha on 10/05/23 11:37 UA Specific [place] 1.015 Last Edit by Erica Garcia [facility] on 10/05/23 11:37 UA Ketone Negative Last Edit by HEIDI Parks on 10/05/23 11:37 UA Bilirubin 0 mg/dL Last Edit by Erica Garcia [facility] on 10/05/23 11:37 UA Glucose 0 mg/dL Last Edit by Erica Garcia [facility] on 10/05/23 11:37 Results Reviewed Results Reviewed: Laboratory Last Values Urine pH (Auto) 7.0 10/05/23 11:35 Specific [place] (Auto) 1.015 10/05/23 11:35 Urine Protein (Auto) 0.5 mg/dL 10/05/23 11:35 Glucose (UA)(Auto) 0 mg/dL 10/05/23 11:35 Urine Ketones (Auto) Negative 10/05/23 11:35 Urine Blood (Auto) 0 Darinel/uL 10/05/23 11:35 Urine Nitrite (Auto) Negative 10/05/23 11:35 Urine Bilirubin (Auto) 0 mg/dL 10/05/23 11:35 Urine Urobilinogen (Auto) 0 mg/dL 10/05/23 11:35 Leukocyte Esterase (Auto) 0.5 Jessie/uL 10/05/23 11:35 Coding Level of Care Code [place] Assessment & Plan Assessment & Plan Orders: Orders AMB Urinalysis Automated Today Z34.93 - Encounter for supervision of normal , unspecified, third trimester
== END 2023-10-05 11:57 | disposition home or self-care (01) ==
LOC: HO.HWS 11:21
PROVIDERS: PCP Internal Medicine; Visit Provider Advanced Practice Midwife
DX: Z34.93 Encounter for supervision of normal pregnancy, unspecified, third trimester (principal)
CPT/HCPCS: 25942

== ENCOUNTER → 2023-10-05 11:21 | Outpatient (BNVA) | payer OTHER, SELFPAY | PROVIDERS: PCP Internal Medicine; Visit Provider Advanced Practice Midwife | DX: O99.353 Diseases of the nervous system complicating pregnancy, third trimester (principal); G43.909 Migraine, unspecified, not intractable, without status migrainosus; O99.013 Anemia complicating pregnancy, third trimester; D64.9 Anemia, unspecified; Z3A.35 35 weeks gestation of pregnancy | CPT/HCPCS: 81003; 99212 ==

== ENCOUNTER 2023-10-14 11:39 | Outpatient (REF) | payer OTHER, SELFPAY ==
[2023-10-14 17:23] LABS: CT PCR NOT DETECTED (Not Detect.); NG PCR NOT DETECTED (Not Detect.)
== END 2023-10-14 11:40 | disposition home or self-care (01) ==
LOC: HO.LNP 11:39
PROVIDERS: PCP Internal Medicine; Visit Provider Advanced Practice Midwife
DX: O99.013 Anemia complicating pregnancy, third trimester (principal); O26.893 Other specified pregnancy related conditions, third trimester; R51.9 Headache, unspecified; Z3A.36 36 weeks gestation of pregnancy; Z20.2 Contact with and (suspected) exposure to infections with a predominantly sexual mode of transmission
CPT/HCPCS: 0353U; 81003; 87081; 99212

== ENCOUNTER 2023-10-14 11:39 | Outpatient (AMB) | payer OTHER, SELFPAY ==
--- NOTE | 2023-10-14 11:41 | A.OFFVISPN_ITS ---
Intake Vital Signs 10/14/23 11:42 Height 5 ft 6 in Weight 162 lb BMI 26.1 BP 120/80 Intake Visit Reasons: ALKA Institutional Aide: Institutional Aide Present (Rebeca) Allergies cyclobenzaprine Adverse Reaction (Unknown, Verified 10/14/23 11:41) dry mouth and vertigo Patient : Yes PFSH Medical History (Updated 09/03/23 @ 12:39 by Ishan Jones MD) Nocturnal leg cramps Recurrent headache Upper back pain on right side Migraine with aura Surgical History (Updated 09/03/23 @ 12:39 by Ishan Jones MD) No pertinent past surgical history Family History (Updated 09/24/23 @ 11:49 by Patience Del Rio CNM) Father Heart disease Mother Diabetes mellitus HTN (hypertension) CVD (cardiovascular disease) Maternal Aunt Diabetes mellitus History of CVA (cerebrovascular accident) Brother No problems noted. Brother No problems noted. Brother No problems noted. Sister No problems noted. Sister No problems noted. Social History (Updated 09/03/23 @ 11:49 by Jimi Christopher) Housing: Apartment Alcohol intake: never Patient Tobacco Use Status: Never used Tobacco e-Cigarette/Vaping Use: Never Used service: No Current occupational status: employed Sexual orientation: Straight/Heterosexual Gender identity: Female Cognitive needs: No Hearing needs: No Vision needs: No Female Reproductive History Menstrual Age of Menarche: 15 History History 1 Elective abortions 0 Para 0 Spontaneous abortions 0 Hx # Term Pregnancies 0 Ectopic pregnancies 0 Hx # Pregnancies 0 Multiple births 0 Visit ANYI Calculator Estimated Delivery Date Method Current WG Current Estimate 11/05/23 Ultrasound #1 36w 6d Other Estimates 11/05/23 LMP (Certain) 36w 6d Expected Delivery Route/Plan Vaginal delivery Specific Issues/Plans OB Problem List: 32 yr. old ? ? G1 ?P0 ? ? ?LMP: 01/29/23 EDC: 11/05/23 ?by sure dates? ? ?Blood type: O pos Problem List: 1. Migraines- has neurologist at [facility], on fioricet- rec only using if really necessary and prioritize water intake. 2. ANEMIA- take iron every other day due to GI effects (constipation) 3. Leg varicosities: plan Rx for Jobst full length maternity hose. Care, warnings discussed 08/13/23 4. FH DM-mother Testing: Panorama/and or First Tri screen: ? ?risk low risk for downs and tri 18. NT scan: wnl First screen: negative FAS: booked 06/25/23 Glucose: early still pending, 05/18? 28 wk glucose: ?62 CBC 1st Tri: ? ? 10.7/35.6 ? 28 wk. CBC: 10.3 GBS: Vaccinations: Flu: had at work 07/2023. Covid: Vaxed x 2, had Covid in 2021. 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 [facility] Transportation: Labor, and Concerns: Labor support: Plan: Infant Feeding Plans: breast- initial teaching control: OB Visit Log Initial Weight: 120 lb Date -?-?-?-?-?-?-?-?-?-?-?-?- EGA Weight Gest Week Fundal Ht Present FHR move Efface % Edema BP PrePreg We Weight GTT -?-?-?-?-?-?-?-?-?-?-?-?- Glucose LV Protein Blood Type 04/16/23 -?-?-?-?-?-?-?-?-?-?-?-?- 11w 0d 127 lb 2 oz (+7 lb 2 oz) 1 27 lb 2 oz -?-?--?-?-?-?-?-?-?-?-?-?- 05/18/23 -?-?-?-?-?-?-?-?-?-?-?-?- 15w 4d 131 lb (+11 lb) 15 150 active 118/66 131 lb -?-?-?-?-?-?-?-?-?-?-?-?- 06/16/23 -?-?-?-?-?-?-?-?-?-?-?-?- 19w 5d 137 lb (+17 lb) 19 150 active 114/74 137 lb -?-?-?-?-?-?-?-?-?-?-?-?- 07/17/23 -?-?-?-?-?-?-?-?-?-?-?-?- 24w 1d 145 lb (+25 lb) 24 150 active 110/62 145 lb -?-?-?-?-?-?-?-?-?-?-?-?- 08/13/23 -?-?-?-?-?-?-?-?-?-?-?-?- 28w 0d 151 lb (+31 lb) 27 150 active 102/60 151 lb -?-?-?-?-?-?-?-?-?-?-?-?- 08/27/23 -?-?-?-?-?-?-?-?-?-?-?-?- 30w 0d 148 lb (+28 lb) 271 27 140 active 110/64 148 lb -?-?-?-?-?-?-?-?-?-?-?-?- 09/08/23 -?-?-?-?-?-?-?-?-?-?-?-?- 31w 5d 156 lb (+36 lb) 30 150 active 122/82 100/68 156 lb -?-?-?-?-?-?-?-?-?-?-?-?- 09/24/23 -?-?-?-?-?-?-?-?-?-?-?-?- 34w 0d 158 lb (+38 lb) 32 150 active 116/68 158 lb -?-?-?-?-?-?-?-?-?-?-?-?- 10/05/23 -?-?-?-?-?-?-?-?-?-?-?-?- 35w 4d 158 lb (+38 lb) 33 140 absent 106/74 158 lb -?-?-?-?-?-?-?-?-?-?-?-?- 10/14/23 -?-?-?-?-?-?-?-?-?-?-?-?- 36w 6d 162 lb (+42 lb) 35 170 active 120/80 162 lb -?-?-?-?-?-?-?-?-?-?-?-?- Notes Visit Date: 10/14/23 Last Updated by: Patience Del Rio CNM Error noted in the movement column from last visit she had reported active.Note author: Patience Del Rio CNM. 36.6wk. ALKA. Taking PNV, Doing well with concerns: Increased swelling, mild headaches resolved with Tylenol. Increased pressure in the pelvic region. Good appetite, stays well hydrated. Denies any LOF, VB, abd. pain or urinary symptoms. Good FM. Reviewed: PTL s/s-LOF/Ctx's/VB, when to seek emergent care. discomforts, self help measures. FMC and when to call for further evaluation. Encouraged a healthy well balanced diet, regular walking/exercise in . Hydrate well, 8-10 glasses of water daily. GBS and GC chlamydia today. To [facility] now for NST. RTO 1wk. heart rate acceleration prolonged verses tachycardia noted today discussed with patient advised to go to [facility] for NST at this time. Visit Date: 10/05/23 Last Updated by: Patience Del Rio CNM Note author: Patience Del Rio CNM. 35.4wk. ALKA. Taking PNV, Doing well with no concerns. Good appetite, stays well hydrated. Denies any LOF, VB, abd. pain or urinary symptoms. Good FM. Reviewed: PTL s/s-LOF/Ctx's/VB, when to seek emergent care. discomforts, self help measures. FMC and when to call for further evaluation. Encouraged a healthy well balanced diet, regular walking/exercise in . Hydrate well, 8-10 glasses of water daily. GBS next visit. RTO 1wk. Visit Date: 09/24/23 Last Updated by: Patience Del Rio CNM Note author: Patience Del Rio CNM. 34wk. ALKA. Taking PNV and iron, Doing well with no concerns. Good appetite, stays well hydrated. Denies any LOF, VB, abd. pain. or urinary symptoms. Good FM. Reports some LE swelling, wears support hose. Interested in the ParaGard , booklet given for review advised we can order it before she delivers. Ultrasound reviewed growth in the 74th percentile. Reviewed: PTL s/s-LOF/Ctx's/VB, when to seek emergent care. discomforts, self help measures. Kick counts/FM and when to call for further evaluation. Encouraged a healthy well balanced diet, regular walking/exercise in . Hydrate well, 8-10 glasses of water daily. Tdap today. RTO 2. Visit Date: 09/08/23 Last Updated by: Patience Del Rio CNM Note author: Patience Del Rio CNM. 31.5 wk. ALKA. Taking PNV, Appetite improving after flu last week, reports had IV therapy, trying to hydrate. Denies any LOF, VB, abd. pain, or urinary symptoms. Good FM. Reports more tightening last night. Wants to see a vascular doctor and have her veins fixed. Reviewed: PTL s/s-LOF/Ctx's/VB, when to seek emergent care. discomforts, self help measures. Kick counts/FM and when to call for further evaluation. Encouraged a healthy well balanced diet, regular walking/exercise in . Hydrate well, 8-10 glasses of water daily. Advised to check insurance re: Vascular services, most likely after the , may call sooner for a consult. Encouraged to wear her stockings. Tdap at next visit. US follow up is 09/21/23, pt's. preference with work schedule. RTO 2. Visit Date: 08/27/23 Last Updated by: Patience Del Rio CNM Note author: Patience Del Rio CNM/Commercial Production Editor: Que Grewal. 30wk. ALKA. Not taking PNV or iron this week, Doing well with concerns: nausea, vomiting, viral syndrome since last week. also sick. She is able to tolerate fluids and some foods. Denies any LOF, VB, abd. pain, or urinary symptoms. Good FM. Wearing support hose for her varicosities, helping somewhat. Reviewed: PTL s/s-LOF/Ctx's/VB, when to seek emergent care. discomforts, self help measures. Kick counts/FM and when to call the office for further eval. BRAT diet reviewed/ Hydrate well, 8-10 glasses of water daily, additionally: Gatorade, gingerale, juices, no acidic foods or spices. SMD, plan US for growth. Note for work time off until Thursday. Rx for Zofran. RTO 2wks. Visit Date: 08/13/23 Last Updated by: Patience Del Rio CNM Note author: Patience Del Rio CNM. 28wk. ALKA. Not taking PNV due to GI effects, Concerns: leg discomfort and swelling with veins. Good appetite, stays well hydrated. Denies any LOF, VB, abd. pain or urinary symptoms. Good FM. Plans 28 wk labs this Thursday. EPDS=1. Exam: bilateral leg varicose veins thigh to foot, no edema or erythema. Discussed: PTL s/s-LOF/Ctx's/VB, when to seek emergent care. discomforts, self help measures. Kick counts/FM and when to call the office for further eval. Encouraged a healthy well balanced diet, regular walking/exercise in . Hydrate well, 8-10 glasses of water daily. Jobst stocking: will check insurance coverage and have Rx if needed or option of purchasing on [employer]. Vein care and warnings. Rx for PN gummies. RTO 2 wks. Visit Date: 07/17/23 Last Updated by: Patience Del Rio CNM Note author: Patience Del Rio CNM/Dedra Ken, medical dermatologist 24.1 wk ALKA. Taking PNV. Good FM. Denies LOF, VB or abd pain. Reports feeling dizzy last week, since resolved. Good appetite and stays well hydrated. Has not done GTT yet. Discussed: PTL-LOF, VB, abd pain, ctx and when to call for further evaluation. PEC - headaches: not resolved with 2 regular strength Tylenol doses, visual disturbances warnings and when to call for further evaluation.? FKC: have something to eat and drink, should have 5 kicks in 1hr or 10 kicks in 2 hrs, if not call immediately for evaluation. Staying well hydrated, drink 8-10 glasses of water per day. ?Maintain a healthy diet and light exercise, avoid excess sugars and soda. RTO in 4 weeks. Visit Date: 06/16/23 Last Updated by: Patience Del Rio CNM Note author: Patience Del Rio CNM/Lashawn Wallace medical dermatologist 19.5 wk ALKA. Feeling well. Taking PNV. Hydrating well and good appetite Good FM, no LOF, VB or abd pain. Reports she has a scheduled US on Jun 25; she recently canceled other US for this week due to scheduling at work. Admits she is prone to migraines and sees a Neurologist. Discussed: PTL - LOF, VB, abd pain. Advised to eat small frequent meals, hydrate well with water and stay cool. PEC - headaches: not resolved with 2 regular strength Tylenol doses, visual disturbances warnings and when to call for further evaluation. Reviewed when to call for any VB, LOF, contractions, Kick counts reviewed and when to call for any decreased FM. Encouraged patient to sign up for patient portal. Discussed to call the service here for any emergencies/deliveries to be directed to [facility]. Offer transfer to [facility] to [facility] as she works there, she declines and prefers to continue care here. RTO in 1 month. Visit Date: 05/18/23 Last Updated by: Sheryl Murray CNM Patient is here for an initial visit at 15 weeks and 4 days. She says she has never had a Pap smear she tried a few years ago but she was too tense and scared and could not allow for it to happen. She is and this is a planned and she is very happy. She has been feeling a little bit better from the nausea she does not need to take the vitamin B6 anymore she recently started iron twice a day for the anemia she did is constipated when she takes it but she is eating lots of healthy fresh fruits and vegetables and also taking prune a lax, which is helping. 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 She has not done the sugar test yet because she was nauseous and she is waiting to feel little bit better. Discussed testing evaluations process changes that happen in her body including what to expect for the future. Patient was tense with exam but was able to proceed with pelvic exam unable to reproduce a Kegel. Verbal teaching done. Discussed relaxation and normal see of labor and process and she is interested in classes and will check out [facility] classes as well as online. Initial teaching about and what to expect and how to help the baby get latched on with her well everted nipples done and recommend considering [facility] childbirth classes as well. RTC 4 weeks reviewed her nuchal translucency which was normal and her normal 1st trimester screening. Will order the anatomy ultrasound for around 20 weeks as well She it had a clean-catch urine with her in initial lab work which was negative however she needed to void with frequency here while she was here so we are sending a clean-catch urine from here as well. She tries to drink lots of water so she thinks that is what it is but were sending it just to be on the safe side. Additionally she complains of recurring the leg cramps at night. She has magnesium at home that she was taking for this in the past but she stopped bothering and I urged her to has restart it again but continue with her water intake as well because that will help with the headaches. Visit Date: 04/16/23 Last Updated by: Soco Prasad LPN Indira is here today for her stereotype caster at 11wks. G1, pt and her are very happy abut the . 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 She is having some nausea with a few episodes of vomiting. Pt is eating and drinking. She is eating healthy foods, veggies and fruits. She is on Vit B6, and feels it is helping her. Discussed with pt, to eat more frequent smaller amounts of food throughout the day. She will be getting her PNL labs drawn and early 1 hr gtt due to FH of diabetes., CF and UDS. Pt does not smoke , drink or use MJ. Discussed with pt, her u/s and delivery will be at [facility]. Discussed if any problems after hours, how to reach MD job setter honing, and to go to [facility] and not [facility] if needed. Pt is interested in childbirth classes in the 3rd trimester.OB physical scheduled. Discussed NT u/s genetic screen, orders sent to [facility] for appt. Discussed and given packet, she was advised to call with any questions or concerns. Results AMB Urinalysis, Automated UA Leukoctes 0 Jessie/uL Last Edit by Erica Garcia [facility] on 10/14/23 11:51 UA Nitrite Negative Last Edit by Erica Garcia [facility] on 10/14/23 11:51 UA Urobilinogen 0 mg/dL Last Edit by Erica Garcia [facility] on 10/14/23 11:5 1 UA Protein 0 mg/dL Last Edit by Erica Garcia [facility] on 10/14/23 11:51 UA pH 6.0 Last Edit by Erica Garcia [facility] on 10/14/23 11:51 UA Blood 0 Darinel/uL Last Edit by Erica Garcia [facility] on 10/14/23 11:51 UA Specific Todd 1.010 Last Edit by Erica Garcia [facility] on 10/14/23 11:51 UA Ketone Negative Last Edit by Erica Garcia [facility] on 10/14/23 11:51 UA Bilirubin 0 mg/dL Last Edit by Erica Garcia [facility] on 10/14/23 11:51 UA Glucose 0 mg/dL Last Edit by Erica Garcia [facility] on 10/14/23 11:51 Results Reviewed Results Reviewed: Laboratory Last Values Urine pH (Auto) 6.0 10/14/23 11:50 Specific Todd (Auto) 1.010 10/14/23 11:50 Urine Protein (Auto) 0 mg/dL 10/14/23 11:50 Glucose (UA)(Auto) 0 mg/dL 10/14/23 11:50 Urine Ketones (Auto) Negative 10/14/23 11:50 Urine Blood (Auto) 0 Darinel/uL 10/14/23 11:50 Urine Nitrite (Auto) Negative 10/14/23 11:50 Urine Bilirubin (Auto) 0 mg/dL 10/14/23 11:50 Urine Urobilinogen (Auto) 0 mg/dL 10/14/23 11:50 Leukocyte Esterase (Auto) 0 Jessie/uL 10/14/23 11:50 Coding Level of Care Code [place] Assessment & Plan Assessment & Plan Orders: Orders AMB Urinalysis Automated Today Z34.93 - Encounter for supervision of normal , unspecified, third trimester Group B Strep Culture Today Z34.93 - Encounter for supervision of normal , unspecified, third trimester CT NG by PCR Today Z34.93 - Encounter for supervision of normal , unspecified, third trimester
[2023-10-14 11:42] VITALS: BP 120/80; BMI 26.1
== END 2023-10-14 13:32 | disposition home or self-care (01) ==
LOC: HO.HWS 11:39
PROVIDERS: PCP Internal Medicine; Visit Provider Advanced Practice Midwife
DX: Z34.93 Encounter for supervision of normal pregnancy, unspecified, third trimester (principal)
CPT/HCPCS: 25942; 59426

== ENCOUNTER 2023-10-27 11:24 | Outpatient (REF) | payer OTHER, SELFPAY ==
--- NOTE | ~2023-10-27 | US_ITS ---
EXAMINATION: US VENOUS ULTRASOUND WITH DOPPLER LOWER EXTREMITY, BILATERAL CLINICAL INFORMATION: bilateral lower extremity edema and pain. COMPARISON: None available. TECHNIQUE: Ultrasound of the deep veins is performed from the hip to the calf with compression sonography and color and pulse Doppler assessment. Spectral analysis with color-flow imaging is performed. FINDINGS: RIGHT: There is normal venous compression and respiratory variation and augmented flow. The visualized common femoral vein, superficial femoral vein, profunda femoral vein, popliteal vein, and the trifurcation region shows no evidence of deep venous thrombosis. There is no significant popliteal fossa cyst. LEFT: There is normal venous compression and respiratory variation and augmented flow. The visualized common femoral vein, superficial femoral vein, profunda femoral vein, popliteal vein, and the trifurcation region shows no evidence of deep venous thrombosis. There is no significant popliteal fossa cyst. If the patient's symptoms persist, followup ultrasound in 5 days 7 days might be of value to exclude proximal propagation from a non-visualized calf vein. US/US venous duplex LE BI IMPRESSION: No DVT demonstrated in the bilateral lower extremities.
== END 2023-10-27 11:25 | disposition home or self-care (01) ==
LOC: HO.US 11:24
PROVIDERS: Visit Provider Internal Medicine Medical Oncology
DX: I82.403 Acute embolism and thrombosis of unspecified deep veins of lower extremity, bilateral (principal)
CPT/HCPCS: 93970

== ENCOUNTER 2023-12-02 12:25 | Outpatient (AMB) | payer OTHER, SELFPAY ==
--- NOTE | 2023-12-02 12:49 | A.OFFVISPN_ITS ---
Intake Vital Signs 12/02/23 12:50 Height 5 ft 6 in Weight 148 lb BMI 23.9 BP 114/70 Intake Visit Reasons: 6 weeks PP Intake Note: 10/22/23 Male(Ezekial) 6lb 2oz Breast and bottle feeding EPDS 4 Systems Operator: Systems Operator Present (Rebeca) Allergies cyclobenzaprine Adverse Reaction (Unknown, Verified 12/02/23 12:59) dry mouth and vertigo Is last menstrual period known: Yes Last menstrual period: 11/27/23 [facility] Medical History (Updated 12/02/23 @ 13:56 by Patience Del Rio CNM) Nocturnal leg cramps Recurrent headache Upper back pain on right side Migraine with aura Surgical History No pertinent past surgical history Family History Father Heart disease Mother Diabetes mellitus HTN (hypertension) CVD (cardiovascular disease) Maternal Aunt Diabetes mellitus History of CVA (cerebrovascular accident) Brother No problems noted. Brother No problems noted. Brother No problems noted. Sister No problems noted. Sister No problems noted. Social History Housing: Apartment Alcohol intake: never Patient Tobacco Use Status: Never used Tobacco e-Cigarette/Vaping Use: Never Used service: No Current occupational status: employed Sexual orientation: Straight/Heterosexual Gender identity: Female Cognitive needs: No Hearing needs: No Vision needs: No Female Reproductive History Menstrual Age of Menarche: 15 Date of last menstrual period: 11/27/23 Date of last pap smear: 05/18/23 (neg pap and hpv) History History 1 Elective abortions 0 Para 0 Spontaneous abortions 0 Hx # Term Pregnancies 0 Ectopic pregnancies 0 Hx # Pregnancies 0 Multiple births 0 Questionnaire Creston Depression Creston Depression Scale I have been able to laugh and see the funny side of things: As much as I always could I have looked forward with enjoyment to things: As much as I ever did I have blamed myself unnecessarily when things went wrong: Not very often I have been anxious or worried for no reason: Yes, sometimes I have felt scared of panicky for no very good reason at all: No, not at all Things have been getting on top of me: No, I have been coping as well as ever I have been so unhappy that I have had difficulty sleeping: No, not at all I have felt sad or miserable: No, not at all I have been so unhappy that I have been crying: Only occasionally The thought of harming myself has occurred to me: Never 4 Visit ANYI Calculator Estimated Delivery Date Method Current WG Current Estimate 11/05/23 Ultrasound #1 43w 6d Other Estimates 11/05/23 LMP (Certain) 43w 6d Expected Delivery Route/Plan Vaginal delivery Specific Issues/Plans OB Problem List: 32 yr. old ? ? G1 ?P0 ? ? ?LMP: 01/29/23 EDC: 11/05/23 ?by sure dates? ? ?Blood type: O pos Problem List: 1. Migraines- has neurologist at [facility], on fioricet- rec only using if really necessary and prioritize water intake. 2. ANEMIA- take iron every other day due to GI effects (constipation) 3. Leg varicosities: plan Rx for Jobst full length maternity hose. Care, warnings discussed 08/13/23 4. FH DM-mother Testing: Panorama/and or First Tri screen: ? ?risk low risk for downs and tri 18. NT scan: wnl First screen: negative FAS: booked 06/25/23 Glucose: early still pending, 05/18? 28 wk glucose: ?62 CBC 1st Tri: ? ? 10.7/35.6 ? 28 wk. CBC: 10.3 GBS: Vaccinations: Flu: had at work 07/2023. Covid: Vaxed x 2, had Covid in 2021. 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[employer] Transportation: Labor, and Concerns: Labor support: Plan: Infant Feeding Plans: breast- initial teaching control: OB Visit Log Initial Weight: 120 lb Date -?-?-?-?-?-?-?-?-?-?-?-?- EGA Weight Gest Week Fundal Ht Present FHR move Efface % Edema BP PrePreg We Weight GTT -?-?-?-?-?-?-?-?-?-?-?-?- Glucose LV Protein Blood Type 04/16/23 -?-?-?-?-?-?-?-?-?-?-?-?- 11w 0d 127 lb 2 oz (+7 lb 2 oz) 1 27 lb 2 oz -?--?-?-?-?-?-?-?-?-?-?-?- 05/18/23 -?-?-?-?-?-?-?-?-?-?-?-?- 15w 4d 131 lb (+11 lb) 15 150 active 118/66 131 lb -?-?-?-?-?-?-?-?-?-?-?-?- 06/16/23 -?-?-?-?-?-?-?-?-?-?-?-?- 19w 5d 137 lb (+17 lb) 19 150 active 114/74 137 lb -?-?-?-?-?-?-?-?-?-?-?-?- 07/17/23 -?-?-?-?-?-?-?-?-?-?-?-?- 24w 1d 145 lb (+25 lb) 24 150 active 110/62 145 lb -?-?-?-?-?-?-?-?-?-?-?-?- 08/13/23 -?-?-?-?-?-?-?-?-?-?-?-?- 28w 0d 151 lb (+31 lb) 27 150 active 102/60 151 lb -?-?-?-?-?-?-?-?-?-?-?-?- 08/27/23 -?-?-?-?-?-?-?-?-?-?-?-?- 30w 0d 148 lb (+28 lb) 271 27 140 active 110/64 148 lb -?-?-?-?-?-?-?-?-?-?-?-?- 09/08/23 -?-?-?-?-?-?-?-?-?-?-?-?- 31w 5d 156 lb (+36 lb) 30 150 active 122/82 100/68 156 lb -?-?-?-?-?-?-?-?-?-?-?-?- 09/24/23 -?-?-?-?-?-?-?-?-?-?-?-?- 34w 0d 158 lb (+38 lb) 32 150 active 116/68 158 lb -?-?-?-?-?-?-?-?-?-?-?-?- 10/05/23 -?-?-?-?-?-?-?-?-?-?-?-?- 35w 4d 158 lb (+38 lb) 33 140 absent 106/74 158 lb -?-?-?-?-?-?-?-?-?-?-?-?- 10/14/23 -?-?-?-?-?-?-?-?-?-?-?-?- 36w 6d 162 lb (+42 lb) 35 170 active 120/80 162 lb -?-?-?-?-?-?-?-?-?-?-?-?- 12/02/23 -?-?-?-?-?-?-?-?-?-?-?-?- 43w 6d 148 lb (+28 lb) 114/70 148 lb -?-?-?-?-?-?-?-?-?-?-?-?- Notes Visit Date: 12/02/23 Last Updated by: Patience Del Rio CNM Note author Patience Del Rio CNM. Patient is here today for her 6 week exam. Delivered at [facility] had an induction of labor for gestational hypertension. Currently taking Labetatol 100mg, takes one a day, increase in needed. BP ranges- 117/74- 138/88. She is breast and bottle feeding mostly bottle. She reports having her menses today and desires a ParaGard insertion but defers on today's visit, she does not feel her stitches are healed well enough at this time. Records note midline laceration repaired with Vicryl suture. EPDS=4. She reports her son is doing well and growing approximately now 10 lb. She is on maternity leave until February. Visit Date: 10/14/23 Last Updated by: Patience Del Rio CNM Error noted in the movement column from last visit she had reported active.Note author: Patience Del Rio CNM. 36.6wk. ALKA. Taking PNV, Doing well with concerns: Increased swelling, mild headaches resolved with Tylenol. Increased pressure in the pelvic region. Good appetite, stays well hydrated. Denies any LOF, VB, abd. pain or urinary symptoms. Good FM. Reviewed: PTL s/s-LOF/Ctx's/VB, when to seek emergent care. discomforts, self help measures. FMC and when to call for further evaluation. Encouraged a healthy well balanced diet, regular walking/exercise in . Hydrate well, 8-10 glasses of water daily. GBS and GC chlamydia today. To [facility] now for NST. RTO 1wk. heart rate acceleration prolonged verses tachycardia noted today discussed with patient advised to go to [facility] for NST at this time. Visit Date: 10/05/23 Last Updated by: Patience Del Rio CNM Note author: Patience Del Rio CNM. 35.4wk. ALKA. Taking PNV, Doing well with no concerns. Good appetite, stays well hydrated. Denies any LOF, VB, abd. pain or urinary symptoms. Good FM. Reviewed: PTL s/s-LOF/Ctx's/VB, when to seek emergent care. discomforts, self help measures. FMC and when to call for further evaluation. Encouraged a healthy well balanced diet, regular walking/exercise in . Hydrate well, 8-10 glasses of water daily. GBS next visit. RTO 1wk. Visit Date: 09/24/23 Last Updated by: Patience Del Rio CNM Note author: Patience Del Rio CNM. 34wk. ALKA. Taking PNV and iron, Doing well with no concerns. Good appetite, stays well hydrated. Denies any LOF, VB, abd. pain. or urinary symptoms. Good FM. Reports some LE swelling, wears support hose. Interested in the ParaGard , booklet given for review advised we can order it before she delivers. Ultrasound reviewed growth in the 74th percentile. Reviewed: PTL s/s-LOF/Ctx's/VB, when to seek emergent care. discomforts, self help measures. Kick counts/FM and when to call for further evaluation. Encouraged a healthy well balanced diet, regular walking/exercise in . Hydrate well, 8-10 glasses of water daily. Tdap today. RTO 2. Visit Date: 09/08/23 Last Updated by: Patience Del Rio CNM Note author: Patience Del Rio CNM. 31.5 wk. ALKA. Taking PNV, Appetite improving after flu last week, reports had IV therapy, trying to hydrate. Denies any LOF, VB, abd. pain, or urinary symptoms. Good FM. Reports more tightening last night. Wants to see a vascular doctor and have her veins fixed. Reviewed: PTL s/s-LOF/Ctx's/VB, when to seek emergent care. discomforts, self help measures. Kick counts/FM and when to call for further evaluation. Encouraged a healthy well balanced diet, regular walking/exercise in . Hydrate well, 8-10 glasses of water daily. Advised to check insurance re: Vascular services, most likely after the , may call sooner for a consult. Encouraged to wear her stockings. Tdap at next visit. US follow up is 09/21/23, pt's. preference with work schedule. RTO 2. Visit Date: 08/27/23 Last Updated by: Patience Del Rio CNM Note author: Patience Del Rio CNM/Credit Charge Authorizer: Que Grewal. 30wk. ALKA. Not taking PNV or iron this week, Doing well with concerns: nausea, vomiting, viral syndrome since last week. also sick. She is able to tolerate fluids and some foods. Denies any LOF, VB, abd. pain, or urinary symptoms. Good FM. Wearing support hose for her varicosities, helping somewhat. Reviewed: PTL s/s-LOF/Ctx's/VB, when to seek emergent care. discomforts, self help measures. Kick counts/FM and when to call the office for further eval. BRAT diet reviewed/ Hydrate well, 8-10 glasses of water daily, additionally: Gatorade, gingerale, juices, no acidic foods or spices. SMD, plan US for growth. Note for work time off until Thursday. Rx for Zofran. RTO 2wks. Visit Date: 08/13/23 Last Updated by: Patience Del Rio CNM Note author: Patience Del Rio CNM. 28wk. ALKA. Not taking PNV due to GI effects, Concerns: leg discomfort and swelling with veins. Good appetite, stays well hydrated. Denies any LOF, VB, abd. pain or urinary symptoms. Good FM. Plans 28 wk labs this Thursday. EPDS=1. Exam: bilateral leg varicose veins thigh to foot, no edema or erythema. Discussed: PTL s/s-LOF/Ctx's/VB, when to seek emergent care. discomforts, self help measures. Kick counts/FM and when to call the office for further eval. Encouraged a healthy well balanced diet, regular walking/exercise in . Hydrate well, 8-10 glasses of water daily. Jobst stocking: will check insurance coverage and have Rx if needed or option of purchasing on [employer]. Vein care and warnings. Rx for PN gummies. RTO 2 wks. Visit Date: 07/17/23 Last Updated by: Patience Del Rio CNM Note author: Patience Del Rio CNM/Dedra Ken, medical practice assistant 24.1 wk ALKA. Taking PNV. Good FM. Denies LOF, VB or abd pain. Reports feeling dizzy last week, since resolved. Good appetite and stays well hydrated. Has not done GTT yet. Discussed: PTL-LOF, VB, abd pain, ctx and when to call for further evaluation. PEC - headaches: not resolved with 2 regular strength Tylenol doses, visual disturbances warnings and when to call for further evaluation.? FKC: have something to eat and drink, should have 5 kicks in 1hr or 10 kicks in 2 hrs, if not call immediately for evaluation. Staying well hydrated, drink 8-10 glasses of water per day. ?Maintain a healthy diet and light exercise, avoid excess sugars and soda. RTO in 4 weeks. Visit Date: 06/16/23 Last Updated by: Patience Del Rio CNM Note author: Patience Del Rio CNM/Lashawn Wallace medical practice assistant 19.5 wk ALKA. Feeling well. Taking PNV. Hydrating well and good appetite Good FM, no LOF, VB or abd pain. Reports she has a scheduled US on Jun 25; she recently canceled other US for this week due to scheduling at work. Admits she is prone to migraines and sees a Neurologist. Discussed: PTL - LOF, VB, abd pain. Advised to eat small frequent meals, hydrate well with water and stay cool. PEC - headaches: not resolved with 2 regular strength Tylenol doses, visual disturbances warnings and when to call for further evaluation. Reviewed when to call for any VB, LOF, contractions, Kick counts reviewed and when to call for any decreased FM. Encouraged patient to sign up for patient portal. Discussed to call the service here for any emergencies/deliveries to be directed to [facility]. Offer transfer to [facility] to [facility] as she works there, she declines and prefers to continue care here. RTO in 1 month. Visit Date: 05/18/23 Last Updated by: Sheryl Murray CNM Patient is here for an initial visit at 15 weeks and 4 days. She says she has never had a Pap smear she tried a few years ago but she was too tense and scared and could not allow for it to happen. She is and this is a planned and she is very happy. She has been feeling a little bit better from the nausea she does not need to take the vitamin B6 anymore she recently started iron twice a day for the anemia she did is constipated when she takes it but she is eating lots of healthy fresh fruits and vegetables and also taking prune a lax, which is helping. 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 She has not done the sugar test yet because she was nauseous and she is waiting to feel little bit be tter. Discussed testing evaluations process changes that happen in her body including what to expect for the future. Patient was tense with exam but was able to proceed with pelvic exam unable to reproduce a Kegel. Verbal teaching done. Discussed relaxation and normal see of labor and process and she is interested in classes and will check out [facility] classes as well as online. Initial teaching about and what to expect and how to help the baby get latched on with her well everted nipples done and recommend considering [facility]ick childbirth classes as well. RTC 4 weeks reviewed her nuchal translucency which was normal and her normal 1st trimester screening. Will order the anatomy ultrasound for around 20 weeks as well She it had a clean-catch urine with her in initial lab work which was negative however she needed to void with frequency here while she was here so we are sending a clean-catch urine from here as well. She tries to drink lots of water so she thinks that is what it is but were sending it just to be on the safe side. Additionally she complains of recurring the leg cramps at night. She has magnesium at home that she was taking for this in the past but she stopped bothering and I urged her to has restart it again but continue with her water intake as well because that will help with the headaches. Visit Date: 04/16/23 Last Updated by: Soco Prasad LPN Indira is here today for her carpenter refrigerator at 11wks. G1, pt and her are very happy abut the . 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 She is having some nausea with a few episodes of vomiting. Pt is eating and drinking. She is eating healthy foods, veggies and fruits. She is on Vit B6, and feels it is helping her. Discussed with pt, to eat more frequent smaller amounts of food throughout the day. She will be getting her PNL labs drawn and early 1 hr gtt due to FH of diabetes., CF and UDS. Pt does not smoke , drink or use MJ. Discussed with pt, her u/s and delivery will be at [facility] [place]. Discussed if any problems after hours, how to reach MD addictions therapist, and to go to [facility] and not [facility] if needed. Pt is interested in childbirth classes in the 3rd trimester.OB physical scheduled. Discussed NT u/s genetic screen, orders sent to [facility] for appt. Discussed and given packet, she was advised to call with any questions or concerns. Review of Systems Const All systems reviewed & are unremarkable except as noted in HPI and below Reports as per HPI Eyes Reports no additional complaints ENT Reports no additional complaints Card Reports no additional complaints Resp Reports no additional complaints GI Reports as per HPI and Reports no additional complaints Reports as per HPI Musc Reports no additional complaints Skin/Breast Reports as per HPI Neuro Reports no additional complaints Psych Reports no additional complaints Endo Reports no additional complaints Abimael/Lymph Reports no additional complaints Aller/Immun Reports no additional complaints Exam Const Constitutional General: cooperative, healthy appearing, no acute distress, well developed and alert Orientation/consciousness: patient oriented x3 HENMT Head: normal to inspection Eyes General: appearance normal, both eyes and all related structures Neck Neck: normal visual inspection Thyroid: Thyroid normal Chest Chest palpation & inspection: normal inspection of the chest and other (no puckering, dimpling, peau de orange, retraction, discharge, masses) Breast/axilla inspection: normal inspection of the breasts Breast/axilla palpation: normal palpation of the breasts Resp Effort & Inspection: normal respiratory effort GI Inspection (GI): normal to inspection Palpation (GI): Soft to palpation General Exam: Yes bladder normal to palpation External Female Exam: normal external appearance and normal appearance of the urethra Urethra: normal appearance of the urethra Speculum exam - vagina: normal appearance of the vagina, normal discharge, vaginal bleeding and other (Sutures intact and healing well slightly tender, patient tense with exam) Speculum Exam - Cervix: normal appearance of the cervix Bimanual exam- vagina & uterus: normal bimanual exam, normal palpation, uterine size normal, bladder normal to palpation, normal palpation and non-tender Bimanual Exam- Adnexa, other: no masses OB/external & speculum: vaginal bleeding Speculum Exam: vaginal bleeding Skin General skin exam: no rashes or lesions noted Rashes: no rashes Neuro Cognition (Neuro): normal cognition Extrem General: normal to inspection Psych Attitude: cooperative Thought process: Normal thought process present Coding Level of Care Code [place] Diagnoses Gestational hypertension O13.9 exam Z39.2 Assessment & Plan Assessment & Plan (1) Gestational hypertension: Code(s): O13.9 - Gestational [-induced] hypertension without significant proteinuria, unspecified trimester (2) exam: Code(s): Z39.2 - Encounter for routine follow-up Plan Discussed: Follow-up with [facility] for med management for gestational hypertension and tapering of medication. Advised not to stop meds abruptly without advice and guidance from her care providers. Encouraged her to continue breast-feeding. Patient will reschedule appointment for ParaGard insertion when she is ready, advised no unprotected intimacy Discussed exercises. Return to the office in 1 year for annual exam. All of her questions and concerns were addressed to the best of my ability and shared decision making. She is agreeable to the plan of care. This note is constructed using voice recognition software. While every effort has been made to ensure accuracy, human services assistant errors may have been included. Orders: Orders CT NG by PCR Today Z20.2 - Contact with and (suspected) exposure to infections with a predominantly sexual mode of transmission
[2023-12-02 12:50] VITALS: BP 114/70; BMI 23.9
== END 2023-12-02 13:30 | disposition home or self-care (01) ==
LOC: HO.HWS 12:25
PROVIDERS: PCP Internal Medicine; Visit Provider Advanced Practice Midwife
DX: Z39.2 Encounter for routine postpartum follow-up (principal)
CPT/HCPCS: 59430

== ENCOUNTER 2023-12-02 12:25 | Outpatient (REF) | payer OTHER, SELFPAY ==
[2023-12-02 17:12] LABS: CT PCR NOT DETECTED (Not Detect.); NG PCR NOT DETECTED (Not Detect.)
== END 2023-12-02 12:26 | disposition home or self-care (01) ==
LOC: HO.LNP 12:25
PROVIDERS: PCP Internal Medicine; Visit Provider Advanced Practice Midwife
DX: Z39.2 Encounter for routine postpartum follow-up (principal); Z20.2 Contact with and (suspected) exposure to infections with a predominantly sexual mode of transmission
CPT/HCPCS: 0353U

== ENCOUNTER 2024-01-01 11:47 | Outpatient (AMB) | payer OTHER, SELFPAY ==
[2024-01-01 11:48] VITALS: BP 110/72; BMI 23.8
--- NOTE | 2024-01-01 11:48 | MHC.OFFVIS ---
Intake Vital Signs 01/01/24 11:48 Height 5 ft 6 in Weight 147 lb 11.355 oz BMI 23.8 BP 110/72 Intake Visit Reasons: Paragard insertion pt supplied Planning Engineer Required: No Information Interpreted: non-clinical & clinical Senior Sales Assistant: Senior Sales Assistant Present (Deyanira GORDON) Accompanied by: Self / Same As Patient Allergies cyclobenzaprine Adverse Reaction (Unknown, Verified 01/01/24 11:53) dry mouth and vertigo HPI HPI Comments History of Present Illness Details Patient is here for ParaGard IUD insertion. Menses today and denies any intimacy since her delivery 2 months ago. [facility] Medical History Nocturnal leg cramps Recurrent headache Upper back pain on right side Migraine with aura Surgical History No pertinent past surgical history Family History Father Heart disease Mother Diabetes mellitus HTN (hypertension) CVD (cardiovascular disease) Maternal Aunt Diabetes mellitus History of CVA (cerebrovascular accident) Brother No problems noted. Brother No problems noted. Brother No problems noted. Sister No problems noted. Sister No problems noted. Social History Housing: Apartment Alcohol intake: never Patient Tobacco Use Status: Never used Tobacco e-Cigarette/Vaping Use: Never Used service: No Current occupational status: employed Sexual orientation: Straight/Heterosexual Gender identity: Female Cognitive needs: No Hearing needs: No Vision needs: No Female Reproductive History Menstrual Age of Menarche: 15 Date of last menstrual period: 12/30/23 control method: copper IUCD (01/01/2024) Review of Systems Const All systems reviewed & are unremarkable except as noted in HPI and below Physical Exam Vital Signs: Last Vital Signs BP 110/72 01/01/24 11:48 BMI result Body Mass Index 23.8 Const General: cooperative, healthy appearing and no acute distress Orientation/consciousness: patient oriented x3 GI Inspection: Yes normal to inspection Palpation (GI): Soft to palpation and Other GI palpation findings present (Nontender) Rectal Exam - Female: visual inspection normal General: Yes bladder normal to palpation External Female Exam: normal appearance of the urethra Speculum Exam - Vagina: normal appearance of the vagina, normal palpation, normal vaginal discharge and vaginal bleeding Speculum Exam - Cervix: normal appearance of the cervix and normal palpation Bimanual exam- vagina & uterus: normal bimanual exam, normal palpation, uterine size normal, bladder normal to palpation, normal palpation, uterine shape normal and non-tender Bimanual Exam- Adnexa, other: normal adnexae OB/external & speculum: vaginal bleeding Neuro General: patient oriented x3 Office Procedures IUD Insert/Removal Details 62488-EJC Insertion Procedure code (CPT) selection complete Contraception Insert/Removal Details Details: The patient is here today for a ParaGard IUD insertion. She was counseled on the side effects including: menstrual cycle changes, pain, infection, bleeding, or expulsion. Risks of injury to the vagina, cervix, uterus, tubes, ovaries, bowel, bladder, and any adjacent tissue, resulting in nerve damage, scarring, and pain. Risks complications for the procedure that may require other test including ultrasounds, Xray, CT or MRI scan, surgery, anesthesia, blood transfusion. A urine test was completed and was negative. She was consented for the IUD insertion and has signed the consent form. All questions were answered. IUD Insertion: The patient was placed in the dorsal lithotomy position and a sterile speculum was inserted. The procedure was completed under aseptic technique. The cervix was cleansed with a Betadine solution x 3 swabs. A single toothed tenaculum was applied to the cervix for stabilization, and the uterus was sounded to 8.5cm. The device was inserted and released with a gentle motion. Bleeding from the tenaculum sites and the procedure were minimal. The strings were trimmed to 3cm. All of the equipment was removed and the bimanual was normal, no tip was palpable at the cervical os. The patient tolerated the procedure well and left the office in good condition. Post IUD Insertion Care: There may be some post insertion bleeding for several days that is usually light and can turn to a light brown or pink in color. Mild cramping may occur. Nothing in the vagina including: tampons, douching or intimacy for several days. You may take an over the counter mild analgesia like Tylenol or Advil (if no allergies), per the manufacturers recommendations on dosing and frequency. Follow the directions completely. Call the office if any: fever (over 100.4), flu like symptoms, abdominal pain, worsening cramping not resolved with over the counter medications, foul smelling vaginal odor, signs of infected appearing discharge, or heavy bleeding. Use a condom for a back up method if indicated for 7 days. Always use a condom for STI prevention; IUD's are not protective against STD's. Return to the office in 4-6 weeks for IUD recheck. This note is constructed using voice recognition software. While every effort has been made to ensure accuracy, vocational services specialist errors may have been included. 94855 - Insertion Office Meds ParaGard T 380A 380 square mm intrauterine device Performing Provider: Patience Del Rio CNM Performing Location: [facility] [place] [facility] Administered by: Deyanira Vanegas CMA on 01/01/24 14:07 Dose Route Admin Location Dispensed Lot Number Expiration Date [facility] Orientation And Mobility Specialist 1 device intrauterine [facility] [place] 1 device [id number] 05/17/29 [address]-5 [employer] Results AMB Test Urine AMB Test Urine Negative Last Edit by Deyanira Vanegas CMA on 01/01/24 12:01 AMB Test Urine AMB Test Urine Negative Last Edit by Dyeanira Vanegas CMA on 01/01/24 12:14 Results Reviewed Results Reviewed: Laboratory Last Values [facility] Clinic Negative 01/01/24 12:13 Assessment & Plan Assessment & Plan (1) Encounter for IUD insertion: Code(s): Z30.430 - Encounter for insertion of intrauterine contraceptive device Plan See procedure notes. Orders: Orders AMB HCG Urine Test Today Z32.02 - Encounter for test, result negative AMB HCG Urine Test Today Z32.02 - Encounter for test, result negative AMB IUD Insertion/Removal - Patient Supply Today Z30.430 - Encounter for insertion of intrauterine contraceptive device Coding Level of Care Code Procedure Only Diagnoses Encounter for IUD insertion Z30.430 CPT Codes Details - CPT: 92194-JMK Insertion ([id number]) Details - Contraception: 12640 - Insertion ([id number])
== END 2024-01-01 13:02 | disposition home or self-care (01) ==
PROVIDERS: PCP Internal Medicine; Visit Provider Advanced Practice Midwife
DX: Z30.430 Encounter for insertion of intrauterine contraceptive device (principal); Z32.02 Encounter for pregnancy test, result negative
CPT/HCPCS: 58300

== ENCOUNTER → 2024-01-01 11:47 | Outpatient (BNVA) | payer OTHER, SELFPAY | PROVIDERS: PCP Internal Medicine; Visit Provider Advanced Practice Midwife | DX: Z30.430 Encounter for insertion of intrauterine contraceptive device (principal) | CPT/HCPCS: 58300; 81025; J7300 ==

== ENCOUNTER 2024-02-11 15:44 | Outpatient (REF) | payer OTHER, SELFPAY ==
[2024-02-13 15:24] LABS: BV Int Neg Control Negative (Negative); BV Int Pos Control Positive (Positive)
== END 2024-02-11 15:45 | disposition home or self-care (01) ==
LOC: HO.LNP 15:44
PROVIDERS: PCP Internal Medicine; Visit Provider Advanced Practice Midwife
DX: Z30.431 Encounter for routine checking of intrauterine contraceptive device (principal); R10.2 Pelvic and perineal pain
CPT/HCPCS: 81025; 87480; 87510; 87660

== ENCOUNTER 2024-02-11 15:44 | Outpatient (AMB) | payer OTHER, SELFPAY ==
[2024-02-11 15:57] VITALS: BP 120/70; BMI 23.1
--- NOTE | 2024-02-11 15:57 | MHC.OFFVIS ---
Vital Signs 02/11/24 15:57 Height 5 ft 6 in Weight 143 lb BMI 23.1 BP 120/70 Intake Visit Reasons: IUD Check Experimental Machining Lab Manager Required: No Information Interpreted: non-clinical & clinical Cat Swamper: Cat Swamper Present (Andrew) Allergies cyclobenzaprine Adverse Reaction (Unknown, Verified 02/11/24 15:57) dry mouth and vertigo Post menopausal: No Patient : No HPI Comments Details: Patient is here today for her follow-up post IUD insertion check. She had the ParaGard placed and reports some bleeding which may have represented her cycle this month. She is currently breast and bottle feeding. And she reports that she has feeling a little bit more cramping this week. [facility] Medical History Nocturnal leg cramps Recurrent headache Upper back pain on right side Migraine with aura Surgical History No pertinent past surgical history Family History Father Heart disease Mother Diabetes mellitus HTN (hypertension) CVD (cardiovascular disease) Maternal Aunt Diabetes mellitus History of CVA (cerebrovascular accident) Brother No problems noted. Brother No problems noted. Brother No problems noted. Sister No problems noted. Sister No problems noted. Social History Housing: Apartment Alcohol intake: never Patient Tobacco Use Status: Never used Tobacco e-Cigarette/Vaping Use: Never Used Patient : No service: No Current occupational status: employed Sexual orientation: Straight/Heterosexual Gender identity: Female Cognitive needs: No Hearing needs: No Vision needs: No Female Reproductive History Menstrual Age of Menarche: 15 Duration of menses: 3-5 days control method: copper IUCD Total pregnancies: 1 Full term: 1 Number of Living Children: 1 Date of last pap smear: 05/19/23 (negative) Review of Systems Const All systems reviewed & are unremarkable except as noted in HPI and below Physical Exam Vital Signs: Last Vital Signs BP 120/70 02/11/24 15:57 BMI result Body Mass Index 23.1 Const General: cooperative, healthy appearing and no acute distress Orientation/consciousness: patient oriented x3 GI Inspection: Yes normal to inspection Palpation (GI): Soft to palpation and Other GI palpation findings present (Nontender) Rectal Exam - Female: visual inspection normal General: Yes bladder normal to palpation External Female Exam: normal appearance of the urethra Speculum Exam - Vagina: normal appearance of the vagina, normal palpation and normal vaginal discharge (Clear mucus appears like midcycle secretions) Speculum Exam - Cervix: normal appearance of the cervix, normal palpation and Other cervical findings present (IUD strings present at the os, no tip is palpated) Bimanual exam- vagina & uterus: normal bimanual exam, normal palpation, uterine size normal, bladder normal to palpation, normal palpation, uterine shape normal and non-tender Bimanual Exam- Adnexa, other: normal adnexae Neuro General: patient oriented x3 Results AMB Test Urine AMB Test Urine Negative Last Edit by HEIDI Vinson on 02/11/24 15:59 Results Reviewed Results Reviewed: Laboratory Last Values [facility] Clinic Negative 02/11/24 15:59 Assessment & Plan Assessment & Plan (1) IUD surveillance: Code(s): Z30.431 - Encounter for routine checking of intrauterine contraceptive device (2) Pelvic cramping: Code(s): R10.2 - Pelvic and perineal pain Plan BV panel obtained today. Pelvic ultrasound ordered to check on IUD positioning. Patient advised to monitor the menstrual bleeding and report any increase in pain. Return to the office for a follow up when the ultrasound is completed to discuss results or call sooner if there is any concerns. All of her questions and concerns were addressed to the best of my ability. She is agreeable to the plan of care. This note is constructed using voice recognition software. While every effort has been made to ensure accuracy, cooler worker errors may have been included. Orders: Orders AMB HCG Urine Test Today Z30.431 - Encounter for routine checking of intrauterine contraceptive device US pelvic and transvaginal Today R10.2 - Pelvic and perineal pain, Z30.431 - Encounter for routine checking of intrauterine contraceptive device Bacterial Vaginosis Panel Today R10.2 - Pelvic and perineal pain Coding Level of Care Code Est Pt Level 3 (85702) Diagnoses IUD surveillance Z30.431 Pelvic cramping R10.2
== END 2024-02-11 16:15 | disposition home or self-care (01) ==
PROVIDERS: PCP Internal Medicine; Visit Provider Advanced Practice Midwife
DX: Z30.431 Encounter for routine checking of intrauterine contraceptive device (principal); R10.2 Pelvic and perineal pain
CPT/HCPCS: 99213

== ENCOUNTER 2024-02-18 15:47 | Outpatient (REF) | payer OTHER, SELFPAY ==
--- NOTE | ~2024-02-18 | US_ITS ---
EXAMINATION: US PELVIS CLINICAL INFORMATION: For assessment of IUD; the last menstrual period was on 01/24/2024. COMPARISON: None available. TECHNIQUE: Ultrasound of the pelvis is performed using both transabdominal and transvaginal transducers along with Doppler. Transvaginal imaging is performed due to inadequate visualization transabdominally. FINDINGS: Uterus: The uterus is anteverted and anteflexed. The uterus measures 9.4 x 4.3 x 4.6 cm. The double wall endometrial thickness is increased at 2.2 cm. An intrauterine device is seen, properly situated within the endometrial canal. The uterus is smooth in contour and has normal myometrial echogenicity. No visible fibroid. Adnexa: Both ovaries are visualized. There is normal color flow to the adnexa. There is no ovarian torsion. A 1.8 x 1.4 x 1.7 cm low-attenuation fluid collection is seen adjacent to the right ovary. There is further mild free fluid within the cul-de-sac. Right ovary measures 3.4 x 1.9 x 2.9 cm. Left ovary measures 3.6 x 1.8 x 2.0 cm. The left ovary contains an exophytic benign, simple cyst of maximal diameter 1.2 cm. US/US pelvic and transvaginal IMPRESSION: 1. An intrauterine device is seen, properly situated within the endometrial canal. 2. There is endometrial stripe thickening to 2.2 cm. Gynecology evaluation and management are recommended, with consideration for tissue sampling, if clinically indicated. 3. Small free fluid collections are seen within the cul-de-sac and adjacent to the right ovary.
== END 2024-02-18 15:48 | disposition home or self-care (01) ==
LOC: HO.US 15:47
PROVIDERS: PCP Internal Medicine; Visit Provider Advanced Practice Midwife
DX: Z30.431 Encounter for routine checking of intrauterine contraceptive device (principal); R10.2 Pelvic and perineal pain
CPT/HCPCS: 76830; 76856

== ENCOUNTER 2024-03-31 15:46 | Outpatient (AMB) | payer SELFPAY ==
--- NOTE | 2024-03-31 15:47 | A.OFFVIS_ITS ---
Intake Visit Reasons: Ultra sound follow up/ needs late appt Hospital Staff Pharmacist Required: No Reinforced Ironworker: Reinforced Ironworker Present Allergies cyclobenzaprine Adverse Reaction (Unknown, Verified 03/31/24 15:48) dry mouth and vertigo Is last menstrual period known: No HPI Comments Details: Tele [place] visit 3:52-4:02. Phone call due to Covid 19 Pandemic. I spent 9 minutes speaking with the patient on the phone plus an additional 5 minutes reviewing the chart and 5 minutes updating the medical record for a total of 19minutes. Patient presents via phone to discuss: Ultrasound findings recent scan done after her IUD was inserted to check on positioning. She has using a ParaGard and reports she would some spotting and then a week later her bleeding for her normal cycle occurred. [facility] Medical History Nocturnal leg cramps Recurrent headache Upper back pain on right side Migraine with aura Surgical History No pertinent past surgical history Family History Father Heart disease Mother Diabetes mellitus HTN (hypertension) CVD (cardiovascular disease) Maternal Aunt Diabetes mellitus History of CVA (cerebrovascular accident) Brother No problems noted. Brother No problems noted. Brother No problems noted. Sister No problems noted. Sister No problems noted. Social History Housing: Apartment Alcohol intake: never Patient Tobacco Use Status: Never used Tobacco e-Cigarette/Vaping Use: Never Used service: No Current occupational status: employed Sexual orientation: Straight/Heterosexual Gender identity: Female Cognitive needs: No Hearing needs: No Vision needs: No Female Reproductive History Menstrual Age of Menarche: 15 Review of Systems Const All systems reviewed & are unremarkable except as noted in HPI and below Endo Reports no additional complaints Physical Exam Const General: cooperative, healthy appearing and no acute distress Psych Appearance: well kempt Attitude: cooperative Thought process: Normal thought process present Telehealth Telehealth Telehealth Platform: [facility] Location of provider rendering services: practice address Location of patient: address on file Patient Identification confirmed using: Name, : Yes Telehealth method: video Patient verbally consented to treatment: Yes Patient verbally consented to billing insurance company: Yes Patient informed of any privacy concerns related to visit: Yes Assessment & Plan Assessment & Plan (1) Thickened endometrium: Code(s): R93.89 - Abnormal findings on diagnostic imaging of other specified body structures Plan Discussed: Ultrasound findings revealed IUD is in proper position, also that the uterine lining was thicker than usual at 2.2 cm. Patient is an involution should be completed, plan to recheck the uterine lining measurement with ultrasound, patient is agreeable to the plan of care. Discussed thickened endometrial linings and risks of developing atypia, hyperplasia, precancer or cancer, endometrial biopsy would be required if there were any abnormal bleeding concerns. With the ParaGard IUD the bleeding patterns tend to be heavy and longer. Monitor cycles for now report any abnormal uterine bleeding patterns. All of her questions and concerns were addressed to the best of my ability and shared decision making. She is agreeable to the plan of care. This note is constructed using voice recognition software. While every effort has been made to ensure accuracy, clerk general office errors may have been included. Orders: Orders US pelvic and transvaginal 05/19/24 R93.89 - Abnormal findings on diagnostic imaging of other specified body structures Coding Level of Care Code Tele Est Pt Level 3 (24328) Diagnoses Thickened endometrium R93.89
== END 2024-03-31 16:08 | disposition home or self-care (01) ==
LOC: HO.HWS 15:46
PROVIDERS: PCP Internal Medicine; Visit Provider Advanced Practice Midwife
DX: R93.89 Abnormal findings on diagnostic imaging of other specified body structures (principal)
CPT/HCPCS: 99213

== ENCOUNTER → 2024-03-31 15:46 | Outpatient (BNVA) | payer OTHER, SELFPAY | PROVIDERS: PCP Internal Medicine; Visit Provider Advanced Practice Midwife ==

== ENCOUNTER 2024-05-19 16:18 | Outpatient (REF) | payer OTHER, SELFPAY ==
--- NOTE | ~2024-05-19 | US_ITS ---
EXAMINATION: US PELVIS CLINICAL INFORMATION: Thickened endometrium, last menstrual period March 24, 2024. COMPARISON: February 25, 2024 TECHNIQUE: Ultrasound of the pelvis was performed using both transabdominal and transvaginal transducers along with Doppler. Transvaginal imaging was performed due to inadequate visualization transabdominally. FINDINGS: Per damper maker, the uterus was initially anteverted in position and then flipped retro toward the end of the exam. Uterus measures 8.0 x 4.9 x 6.4 cm. Endometrial thickness is 26.4 mm, previously 22 mm. Endometrium appears vascular. No significant free fluid. IUD in place within the endometrial cavity. Right ovary measures 4.4 x 1.8 x 1.5 cm, volume 6.1 mL. Left ovary measures 3.8 x 2.5 x 3.5 cm, volume 17.7 mL. A 2.5 x 2.0 x 1.4 cm left ovarian hypoechoic lesion possibly representing a complex cyst versus solid mass. Previous exam demonstrated a 1.2 cm simple left ovarian cyst. US/US pelvic and transvaginal IMPRESSION: 1. IUD in place within the endometrial cavity. 2. Endometrial thickness is 26.4 mm, previously 22 mm. Endometrium appears vascular. Gynecologic consultation recommended to determine further management including possible biopsy. 3. Left ovarian hypoechoic lesion possibly representing a complex cyst versus solid mass. Previous exam demonstrated a 1.2 cm simple left ovarian cyst.
== END 2024-05-19 16:19 | disposition home or self-care (01) ==
LOC: HO.US 16:18
PROVIDERS: PCP Internal Medicine; Visit Provider Advanced Practice Midwife
DX: R93.89 Abnormal findings on diagnostic imaging of other specified body structures (principal)
CPT/HCPCS: 76830; 76856

== ENCOUNTER 2024-06-16 15:11 | Outpatient (AMB) | payer OTHER, SELFPAY ==
--- NOTE | 2024-06-16 15:13 | MHC.OFFVIS ---
Vital Signs 06/16/24 15:16 Height 5 ft 6 in Weight 143 lb BMI 23.1 BP 130/70 Intake Visit Reasons: US follow up Allergies cyclobenzaprine Adverse Reaction (Unknown, Verified 06/16/24 15:15) dry mouth and vertigo Is last menstrual period known: Yes Last menstrual period: 05/21/24 HPI Comments Details: Patient is here today for a follow up ultrasound results, due to thickened endometrium. She delivered 10/22/2023 and had a ParaGard inserted . She reports this last cycle of her menses bled most of the month, spotting with her cycle lasting 8 days heavy for 4. History of anemia, with blood transfusion. She also reports bloating. Considering re lactating. [facility] Medical History (Updated 06/16/24 @ 15:53 by Patience Del Rio CNM) Abnormal uterine bleeding (AUB) Thickened endometrium Complex ovarian cyst Nocturnal leg cramps Recurrent headache Upper back pain on right side Migraine with aura Surgical History No pertinent past surgical history Family History Father Heart disease Mother Diabetes mellitus HTN (hypertension) CVD (cardiovascular disease) Maternal Aunt Diabetes mellitus History of CVA (cerebrovascular accident) Brother No problems noted. Brother No problems noted. Brother No problems noted. Sister No problems noted. Sister No problems noted. Social History Housing: Apartment Alcohol intake: never Patient Tobacco Use Status: Never used Tobacco e-Cigarette/Vaping Use: Never Used service: No Current occupational status: employed Sexual orientation: Straight/Heterosexual Gender identity: Female Cognitive needs: No Hearing needs: No Vision needs: No Female Reproductive History Menstrual Age of Menarche: 15 Date of last menstrual period: 05/21/24 Review of Systems Const All systems reviewed & are unremarkable except as noted in HPI and below Physical Exam Vital Signs: Last Vital Signs BP 130/70 06/16/24 15:16 BMI result Body Mass Index 23.1 Const General: cooperative, healthy appearing and no acute distress Orientation/consciousness: patient oriented x3 GI Inspection: Yes normal to inspection Palpation (GI): Soft to palpation and Other GI palpation findings present (Nontender) Rectal Exam - Female: visual inspection normal General: Yes bladder normal to palpation External Female Exam: normal appearance of the urethra Speculum Exam - Vagina: normal appearance of the vagina, normal palpation and normal vaginal discharge Speculum Exam - Cervix: normal appearance of the cervix, normal palpation and Other cervical findings present (IUD strings at the os) Bimanual exam- vagina & uterus: normal bimanual exam, normal palpation, uterine size normal, bladder normal to palpation, normal palpation, uterine shape normal and non-tender Bimanual Exam- Adnexa, other: normal adnexae Neuro General: patient oriented x3 Office Procedures Endometrial Biopsy Details: The patient is here today for an endometrial biopsy due to AUB and thickened endometrium to rule out any pathology including atypical, hyperplasia or cancer cells of the uterus. She was counseled regarding anticipatory guidance for the procedure including the risks for pain, infection, bleeding, perforation, potential injury to the tissues may include the cervix, uterus, tubes, bladder and bowels. These injuries may include further treatment and evaluation including surgery, blood transfusions, antibiotics, hospitalizations and anesthesia. Permanent injury and scarring can occur. She was consented for the procedure, and the consent forms were signed. She is agreeable to have the procedure today. All questions were answered. Endometrial Biopsy Procedure: The patient was placed in the dorsal lithotomy position and a sterile speculum inserted. Using aseptic technique for the procedure. The cervix was cleansed with Betadine x 3 swabs. A single toothed tenaculum was placed on the cervix for stabilization and the uterus was sounded to 7.5 cm with a 4mm pipelle, and tissue sample obtained. Minimal bleeding was observed. The tissue sample was placed in formalin in a patient labeled container by staff assisting and sent to the pathology department for processing and interpretation. The patient tolerate the procedure well and was in good condition when leaving the department. Endometrial Biopsy Post Procedure Care: Nothing in the vagina including: tampons, douching or intimacy until all the bleeding has subsided. There may be some post procedure bleeding for several days, this bleeding is usually light and may turn to a light brown or pink color. Mild cramps may occurs. Nothing in the vaginal including: tampons, douching, or intimacy until all the bleeding has subsided. You may take an over the counter mild analgesic such as Tylenol or Advil (if no allergies) per the manufactures recommendation on dosing, frequency, and follow the directions completely. Call the office if any: fever (over 100.4), flu like symptoms, abdominal pain (worse than cramping), foul smelling, infected appearing vaginal discharge, or heavy bleeding. If indicated: Use condoms to prevent and STI's, and only after the bleeding has stopped completely. Return to the office in 2 weeks for results and plan of care. This note is constructed using voice recognition software. While every effort has been made to ensure accuracy, starting gate driver errors may have been included. [id number] Biopsy Results AMB Test Urine AMB Test Urine Negative Last Edit by HEIDI Parks on 06/16/24 15:49 Results Reviewed Results Reviewed: [address] [address] Ultrasound Report Signed Patient: Indira Paulino MR#: [id number] : 1990 Acct:[id number] Age/Sex: 33 / F ADM Date: 05/19/24 Loc: HO.US Attending Dr: Patience Del Rio CNM Ordering Physician: Patience Del Rio CNM Date of Service: 05/19/24 Procedure(s): US pelvic and transvaginal Accession Number(s): [id number] cc: Rochelle Robles MD; Patience Del Rio CNM~ EXAMINATION: US PELVIS CLINICAL INFORMATION: Thickened endometrium, last menstrual period March 24, 2024. COMPARISON: February 25, 2024 TECHNIQUE: Ultrasound of the pelvis was performed using both transabdominal and transvaginal transducers along with Doppler. Transvaginal imaging was performed due to inadequate visualization transabdominally. FINDINGS: Per classified ad taker, the uterus was initially anteverted in position and then flipped retro toward the end of the exam. Uterus measures 8.0 x 4.9 x 6.4 cm. Endometrial thickness is 26.4 mm, previously 22 mm. Endometrium appears vascular. No significant free fluid. IUD in place within the endometrial cavity. Right ovary measures 4.4 x 1.8 x 1.5 cm, volume 6.1 mL. Left ovary measures 3.8 x 2.5 x 3.5 cm, volume 17.7 mL. A 2.5 x 2.0 x 1.4 cm left ovarian hypoechoic lesion possibly representing a complex cyst versus solid mass. Previous exam demonstrated a 1.2 cm simple left ovarian cyst. US/US pelvic and transvaginal IMPRESSION: 1. IUD in place within the endometrial cavity. 2. Endometrial thickness is 26.4 mm, previously 22 mm. Endometrium appears vascular. Gynecologic consultation recommended to determine further management including possible biopsy. 3. Left ovarian hypoechoic lesion possibly representing a complex cyst versus solid mass. Previous exam demonstrated a 1.2 cm simple left ovarian cyst. Dictated By: Carrie Ortiz MD Signed By: <Electronically signed by Carrie Ortiz MD in OV> 06/06/24 1230 DD/ 7375 TD/TT: Teaching Specialists: Assessment & Plan Assessment & Plan (1) Complex ovarian cyst: Code(s): N83.299 - Other ovarian cyst, unspecified side Category: Medical (2) Thickened endometrium: Code(s): R93.89 - Abnormal findings on diagnostic imaging of other specified body structures Category: Medical (3) Abnormal uterine bleeding (AUB): Code(s): N93.9 - Abnormal uterine and vaginal bleeding, unspecified Category: Medical Plan Discussed: Ultrasound findings including left ovarian hypoechoic lesion possible complex ovarian cyst or solid mass, plan short interval follow up in 3 weeks to recheck. Discuss findings of a thickened endometrium and recommended a endometrial biopsy, she is agreeable to that plan. Urine test is negative. Counseled regarding findings of: Complex ovarian cyst, which is often benign, and most resolve on their own overtime. Some develop into premalignant or malignant tumors. Limitations of testing for diagnostic purposes. Further monitoring and evaluation is recommended with US, possible CT, or MRI study. If persists, or is indicated (Ca-125, Carbohydrate Antigen 19-9, & Carcinoembryonic Antigen) labs will be ordered and referral to [facility] or general gynecology for MD care if indicated for possible surgical consult. Follow up for test results. EMB completed today plan labs for TSH CBC and beta HCG. Plan follow up pending results. Advised to contact [facility], referral can be placed as needed. All of her questions and concerns were addressed to the best of my ability and shared decision making. She is agreeable to the plan of care. This note is constructed using voice recognition software. While every effort has been made to ensure accuracy, starting gate driver errors may have been included. Orders: Orders US pelvic and transvaginal 07/04/24 N83.299 - Other ovarian cyst, unspecified side, R93.89 - Abnormal findings on diagnostic imaging of other specified body structures HCG Quantitative Today N93.9 - Abnormal uterine and vaginal bleeding, unspecified, O20.0 - Threatened AMB HCG Urine Test Today R93.89 - Abnormal findings on diagnostic imaging of other specified body structures Thyroid Stimulating Hormone Today N92.1 - Excessive and frequent menstruation with irregular cycle, N93.9 - Abnormal uterine and vaginal bleeding, unspecified Complete Blood Count no Diff Today N93.9 - Abnormal uterine and vaginal bleeding, unspecified Surgical Today N93.9 - Abnormal uterine and vaginal bleeding, unspecified, R93.89 - Abnormal findings on diagnostic imaging of other specified body structures Coding Level of Care Code Procedure Only Diagnoses Complex ovarian cyst N83.299 Thickened endometrium R93.89 Abnormal uterine bleeding (AUB) N93.9 CPT Codes Endometrial Biopsy - CPT: 13693-Dnfxhzjvmog Biopsy ([id number])
[2024-06-16 15:16] VITALS: BP 130/70; BMI 23.1
== END 2024-06-16 16:14 | disposition home or self-care (01) ==
LOC: HO.HWS 15:11
PROVIDERS: PCP Internal Medicine; Visit Provider Advanced Practice Midwife
DX: R93.89 Abnormal findings on diagnostic imaging of other specified body structures (principal); N93.9 Abnormal uterine and vaginal bleeding, unspecified; N83.292 Other ovarian cyst, left side; Z32.02 Encounter for pregnancy test, result negative
CPT/HCPCS: 58100

== ENCOUNTER 2024-06-16 15:11 | Outpatient (REF) | payer OTHER, SELFPAY ==
[2024-06-16 17:25] LABS: Hematocrit 33.2 % (37.0-47.0); Hemoglobin 10.2 g/dl (12.0-16.0); Mean Corpuscular HGB Conc 30.7 g/dl (31.0-35.0); Mean Corpuscular Hemoglobin 21.7 pg (27.0-33.0); Mean Corpuscular Volume 70.8 fL (80.0-98.0); Mean Platelet Volume 11.3 fL (9.4-12.3); Platelet Count 163 X10*3/uL (160-400); Red Blood Count 4.69 X10*6/uL (4.20-5.50); Red Cell Distribution Width 15.8 % (11.0-16.0)
[2024-06-16 18:29] LABS: HCG Quantitative < 2 mIU/mL; Thyroid Stimulating Hormone 4.38 uIU/mL (0.32-4.0)
== END 2024-06-16 15:12 | disposition home or self-care (01) ==
LOC: HO.LAB 15:11
PROVIDERS: PCP Internal Medicine; Visit Provider Advanced Practice Midwife
DX: N93.9 Abnormal uterine and vaginal bleeding, unspecified (principal); R93.89 Abnormal findings on diagnostic imaging of other specified body structures; O20.0 Threatened abortion; N92.1 Excessive and frequent menstruation with irregular cycle; Z97.5 Presence of (intrauterine) contraceptive device
CPT/HCPCS: 36415; 58100; 81025; 84443; 84702; 85027; 88305

== ENCOUNTER 2024-06-30 13:43 | Outpatient (AMB) | payer OTHER, SELFPAY ==
--- NOTE | 2024-06-30 13:44 | A.OFFVIS_ITS ---
Intake Visit Reasons: EMB results Cobol Mainframe Developer: Cobol Mainframe Developer Present Allergies cyclobenzaprine Adverse Reaction (Unknown, Verified 06/16/24 15:15) dry mouth and vertigo Is last menstrual period known: Yes HPI Comments Details: Patient is here today for a follow up on her test results. She had a recent EMB due to AUB, history of thickened endometrium. Current ParaGard user. Cycles last 8+ days heavy for 3-4. Recent labs 06/16/2024 H&H-10.2/33.2, TSH 4.38. [facility] Medical History (Updated 06/16/24 @ 15:53 by Patience Del Rio CNM) Abnormal uterine bleeding (AUB) Thickened endometrium Complex ovarian cyst Nocturnal leg cramps Recurrent headache Upper back pain on right side Migraine with aura Surgical History No pertinent past surgical history Family History Father Heart disease Mother Diabetes mellitus HTN (hypertension) CVD (cardiovascular disease) Maternal Aunt Diabetes mellitus History of CVA (cerebrovascular accident) Brother No problems noted. Brother No problems noted. Brother No problems noted. Sister No problems noted. Sister No problems noted. Social History Housing: Apartment Alcohol intake: never Patient Tobacco Use Status: Never used Tobacco e-Cigarette/Vaping Use: Never Used service: No Current occupational status: employed Sexual orientation: Straight/Heterosexual Gender identity: Female Cognitive needs: No Hearing needs: No Vision needs: No Female Reproductive History Menstrual Age of Menarche: 15 control method: copper IUCD Review of Systems Const All systems reviewed & are unremarkable except as noted in HPI and below Endo Reports no additional complaints Physical Exam Const General: cooperative, healthy appearing and no acute distress Psych Appearance: well kempt Attitude: cooperative Thought process: Normal thought process present Results Reviewed Results Reviewed: Surgical Pathology [id number] Name: Indira Paulino Age/Sex: 33/F Attending: Patience Del Rio CNM : 1990 Submitted by: Patience Del Rio CNM Copies to: Rochelle Robles MD MR #: [id number] Status: DEP REF Collected: 06/16/24 Location: .LAB Received: 06/17/24 Diagnosis Endometrium, biopsy: Early secretory endometrium; no atypia or hyperplasia identified. Clinical History AUB, thickened endometrium Microscopic Description Microscopic sections reviewed. Material Received Endometrial biopsy Gross Description Received in formalin labeled ?endometrial biopsy? are multiple cylindrical portions of lozada-white and red- lozada soft tissue mixed with mucus and clotted blood forming an aggregate measuring 3.1 x 2.7 x 0.3 cm in greatest dimension which is wrapped in lens paper and entirely submitted for microscopic examination, multiple pieces in cassettes A1 and A2. smc Copies To Rochelle Robles MD [facility] Primary Care, [address] [address] Patience Del Rio CNM [facility] Women's Services [address] [place] [address] Drive [address] [place] [address] NOTE: Unless otherwise stated, all tissue is formalin-fixed and paraffin- embedded. Some or all of the immunohistochemical tests reported herein may have been developed and their performance characteristics determined by [facility]. They have not been cleared or approved by the U.S. Food and Drug Administration (FDA). However, the FDA has determined that such clearance or approval is not necessary. This laboratory is certified under the Clinical Laboratory Improvement Amendments of 1988 (CLIA) as qualified to perform high complexity clinical laboratory testing. Patient: Indira Paulino Age/Sex: 33/F MR#: [id number] Page 1 of 2 Surgical Pathology [id number] Electronically Signed By: J Luis Newell MD 06/22/24 [id number] Patient: Indira Paulino Age/Sex: 33/F MR#: [id number] Page 2 of 2 Assessment & Plan Assessment & Plan (1) Abnormal uterine bleeding (AUB): Code(s): N93.9 - Abnormal uterine and vaginal bleeding, unspecified Category: Medical (2) Thickened endometrium: Code(s): R93.89 - Abnormal findings on diagnostic imaging of other specified body structures Category: Medical (3) Complex ovarian cyst: Code(s): N83.299 - Other ovarian cyst, unspecified side Category: Medical Plan Discussed: Endometrial biopsy results-normal, lab work reviewed, Rx sent in for iron therapy to start 1 tablet daily for the 1st week or 2 and then increase it to 2 tablets daily. Advised to notify the office if she is unable to tolerate the iron. Follow up with her primary care provider for her thyroid monitoring. Can initiate ibuprofen 600 mg q.6 hours during the 1st 3-4 days for heavy menstrual cycle. She declines a prescription for ibuprofen as she has [id number] medication on hand at home. Follow up US scheduled in the next month, hx.of complex ovarian cyst. Discussed changing her IUD from a ParaGard to Mirena IUD to the benefits for cycle control due to AUB. Her preference is not to do any hormones. Mirena booklet dispense, plan further discussion at her next follow up. Advised to call if any heavy prolonged bleeding occurs sooner. All of her questions and concerns were addressed to the best of my ability and shared decision making. She is agreeable to the plan of care. This note is constructed using voice recognition software. While every effort has been made to ensure accuracy, stain dipper errors may have been included. Medications: New ferrous sulfate 325 mg PO DAILY 90 days 90 tabs 1RF Coding Level of Care Code Est Pt Level 3 (77957) Diagnoses Abnormal uterine bleeding (AUB) N93.9 Thickened endometrium R93.89 Complex ovarian cyst N83.299
== END 2024-06-30 14:57 | disposition home or self-care (01) ==
LOC: HO.HWS 13:43
PROVIDERS: PCP Internal Medicine; Visit Provider Advanced Practice Midwife
DX: N93.9 Abnormal uterine and vaginal bleeding, unspecified (principal); R93.89 Abnormal findings on diagnostic imaging of other specified body structures; N83.299 Other ovarian cyst, unspecified side
CPT/HCPCS: 99213

== ENCOUNTER → 2024-06-30 13:43 | Outpatient (BNVA) | payer OTHER, SELFPAY | PROVIDERS: PCP Internal Medicine; Visit Provider Advanced Practice Midwife ==

== ENCOUNTER 2024-07-07 12:46 | Outpatient (REF) | payer OTHER, SELFPAY ==
--- NOTE | ~2024-07-07 | US_ITS ---
EXAMINATION: US PELVIS CLINICAL INFORMATION: Ovarian cysts with thickened endometrium COMPARISON: Pelvic ultrasound 05/19/2024: Endometrial thickness is 26.4 mm, previously 22 mm. Endometrium appears vascular. Gynecologic consultation recommended to determine further management, including possible biopsy. 3. Left ovarian hypoechoic lesion possibly representing a complex cyst versus solid mass. Previous exam demonstrated a 1.2 cm simple left ovarian cyst. TECHNIQUE: Ultrasound of the pelvis is performed using both transabdominal and transvaginal transducers along with Doppler. Transvaginal imaging is performed due to inadequate visualization transabdominally. FINDINGS: UTERUS: The uterus is anteverted and measures 8.6 x 4.3 x 4.4 cm. The double wall endometrial thickness has decreased from prior thickness of 26.4 mm to now 15 mm. An IUD is present in correct position within the endometrial canal. Trace fluid is seen in the endocervical canal. The uterus is smooth in contour and has normal myometrial echogenicity. No visible fibroid. ADNEXA: Both ovaries are visualized. There is normal color flow to the adnexa. There is no ovarian torsion. There is no pelvic ascites or fluid collection. Right ovary measures 3.9 x 2.4 x 1.7 cm for a volume of 8.3 mL. Some normal-appearing follicles are seen. Left ovary measures 3.1 x 2.0 x 2.0 cm for a volume of 6.5 mL. A paraovarian versus ovarian cyst is noted measuring 1.1 cm, which appears benign. The complex cyst in the left ovary previously seen has resolved. US/US pelvic and transvaginal IMPRESSION: 1. The endometrium has decreased in thickness from 26.4 mm to 15 mm and is not worrisome. 2. An IUD is present in correct position within the endometrial canal. 3. The complex cyst in the left ovary has resolved. Electronically signed by: Jovanni Melgoza MD 07/13/2024 05:05 PM EDT
== END 2024-07-07 12:47 | disposition home or self-care (01) ==
LOC: HO.US 12:46
PROVIDERS: PCP Internal Medicine; Visit Provider Advanced Practice Midwife
DX: N83.299 Other ovarian cyst, unspecified side (principal); R93.89 Abnormal findings on diagnostic imaging of other specified body structures
CPT/HCPCS: 76830; 76856

== ENCOUNTER 2024-07-13 11:08 | Outpatient (AMB) | payer OTHER, SELFPAY ==
--- NOTE | 2024-07-13 11:11 | MHC.OFFVIS ---
Vital Signs 07/13/24 11:12 Height 5 ft 6 in Weight 141 lb 1.533 oz BMI 22.8 Intake Visit Reasons: lesion on rt labia Boat Hop Required: No Information Interpreted: non-clinical & clinical Lozenge Maker: Lozenge Maker Present (Deyanira GORDON) Accompanied by: Self / Same As Patient Allergies cyclobenzaprine Adverse Reaction (Unknown, Verified 07/13/24 11:14) dry mouth and vertigo Is last menstrual period known: Yes Last menstrual period: 06/24/24 HPI Comments Details: Presenting complaining of right painful labial ulcer that appeared few days ago with no other associated symptoms [facility] Medical History Abnormal uterine bleeding (AUB) Thickened endometrium Complex ovarian cyst Nocturnal leg cramps Recurrent headache Upper back pain on right side Migraine with aura Surgical History No pertinent past surgical history Family History Father Heart disease Mother Diabetes mellitus HTN (hypertension) CVD (cardiovascular disease) Maternal Aunt Diabetes mellitus History of CVA (cerebrovascular accident) Brother No problems noted. Brother No problems noted. Brother No problems noted. Sister No problems noted. Sister No problems noted. Social History Housing: Apartment Alcohol intake: never Patient Tobacco Use Status: Never used Tobacco e-Cigarette/Vaping Use: Never Used service: No Current occupational status: employed Sexual orientation: Straight/Heterosexual Gender identity: Female Cognitive needs: No Hearing needs: No Vision needs: No Female Reproductive History Menstrual Age of Menarche: 15 Date of last menstrual period: 06/24/24 Physical Exam Vital Signs: BMI result Body Mass Index 22.8 Other: The patient could not tolerate speculum exam General: Yes Bimanual renal exam normal bilaterally External Female Exam: other (Right labial tender ulcer) Assessment & Plan Assessment & Plan (1) Herpes genitalis: Code(s): A60.00 - Herpesviral infection of urogenital system, unspecified Category: Medical Plan: Discussed with the patient the findings on physical exam, diagnosis being suspicious for herpes and the mode of transmission. Will rule out other STDs including RPR, hep B and C, HIV, GC and chlamydia and Trichomonas. Valtrex Prescription 1 g p.o. b.i.d. for 10 days for initial outbreak was sent to the patient pharmacy, follow-up in 2 weeks for re-evaluation and GC/CT with BV panel screening. all questions answered patient verbalized understanding. Orders: Orders Hepatitis C Antibody Today Z20.2 - Contact with and (suspected) exposure to infections with a predominantly sexual mode of transmission Hepatitis B Surface Antigen Today Z20.2 - Contact with and (suspected) exposure to infections with a predominantly sexual mode of transmission HIV Ab/Ag Today Z20.2 - Contact with and (suspected) exposure to infections with a predominantly sexual mode of transmission Syphilis Screen Today Z20.2 - Contact with and (suspected) exposure to infections with a predominantly sexual mode of transmission Medications: New valacyclovir 1,000 mg PO BID 10 days 20 tabs 0RF Coding Level of Care Code Est Pt Level 3 (87626) Diagnoses Herpes genitalis A60.00
[2024-07-13 11:12] VITALS: BMI 22.8
== END 2024-07-13 11:34 | disposition home or self-care (01) ==
LOC: HO.HWS 11:08
PROVIDERS: PCP Internal Medicine; Visit Provider Obstetrics & Gynecology
DX: A60.00 Herpesviral infection of urogenital system, unspecified (principal)
CPT/HCPCS: 99213

== ENCOUNTER 2024-07-13 11:08 | Outpatient (REF) | payer OTHER, SELFPAY | END 2024-07-13 11:09 | disposition home or self-care (01) | LOC: HO.LNP 11:08 | PROVIDERS: PCP Internal Medicine; Visit Provider Obstetrics & Gynecology | DX: A60.00 Herpesviral infection of urogenital system, unspecified (principal) | CPT/HCPCS: 87255 ==

== ENCOUNTER 2024-07-13 13:17 | Outpatient (REF) | payer OTHER, SELFPAY ==
[2024-07-13 17:18] LABS: Free T4 (Free Thyroxine) 0.78 ng/dL (0.71-1.85); Thyroid Stimulating Hormone 2.82 uIU/mL (0.32-4.0)
[2024-07-14 05:41] LABS: HBsAGNum1 0.42 S/CO (0.00-0.99); HIV AB/AG Nonreactive (Nonreactive); HIV Num 1 0.04 S/CO (0.00-0.99); Hepatitis B Surface Antigen Negative (Negative); Syphilis Screen Nonreactive (Nonreactive); ~HepC Num1 0.12 S/CO (0.00-0.79); ~Hepatitis C Antibody Nonreactive (Nonreactive)
== END 2024-07-13 13:18 | disposition home or self-care (01) ==
LOC: HO.HMGCLDS 13:17
PROVIDERS: PCP Internal Medicine; Referring Provider Obstetrics & Gynecology; Visit Provider Internal Medicine
DX: R79.89 Other specified abnormal findings of blood chemistry (principal); Z20.2 Contact with and (suspected) exposure to infections with a predominantly sexual mode of transmission
CPT/HCPCS: 36415; 84439; 84443; 86780; 86803; 87340; 87389

== ENCOUNTER → 2024-07-22 16:00 | Outpatient (BNVA) | payer OTHER, SELFPAY | PROVIDERS: PCP Internal Medicine; Visit Provider Advanced Practice Midwife ==

== ENCOUNTER 2025-04-13 15:04 | Emergency (ER) | payer OTHER, SELFPAY ==
[2025-04-13] VITALS (7 sets, daily range): BP systolic 105–126; BP diastolic 58–83; PULSE 70–89; RESP 14–18; TEMP 36.4–37.1; O2SAT 98–100; BMI 20.2
--- NOTE | 2025-04-13 15:23 | ED.GENADULT ---
HPI - General Adult General Chief complaint: Recheck/Abnormal Lab/Rx Stated complaint: abnormal labs Time Seen by Provider: 04/13/25 18:23 Source: patient Mode of arrival: ambulatory Limitations: no limitations History of Present Illness ED Provider: Kwan Cole HPI narrative: The patient is a 34-year-old female presenting to the ED reporting history of anemia previously requiring transfusion in October of 2023 after she gave to her child. The patient reports since placement of ParaGard IUD in December of 2023 she has been experiencing recurrent heavy and prolonged menses with associated intermenstrual bleeding. The patient reports this month she began her period on 04/02 and finished her menses yesterday on 04/12. Patient reports on Monday 04/09 she began experiencing severe generalized weakness with associated dizziness upon standing. Patient reports she went to urgent care today and was found to have significant anemia, presents to the ED for evaluation and management. Patient denies associated chest pain, shortness of breath at rest, abdominal pain, nausea, vomiting, dysuria, fevers/chills, or recent sick contacts. The patient denies other sources of bleeding including hematuria, hematochezia, melena, hematemesis, hemoptysis, epistaxis or bleeding from the gums. The patient is not currently anticoagulated. Related Data Home Medications ?Medication ?Instructions ?Recorded ?Confirmed copper 380 square mm intrauterine intrauterine 02/11/24 device (ParaGard T 380A) Previous Rx's ?Medication ?Instructions ?Recorded ferrous sulfate 325 mg (65 mg 325 mg PO DAILY 90 days #90 tabs 06/30/24 iron) tablet,delayed release Allergies Allergy/AdvReac Type Severity Reaction Status Date / Time cyclobenzaprine AdvReac Unknown dry mouth Verified 04/13/25 15:26 and vertigo Review of Systems Review of Systems: Yes all other systems are reviewed and are negative PMFSH Past Medical History Attestation statement: The following information was validated with the patient. Source: old records reviewed Medical History Abnormal uterine bleeding (AUB) Thickened endometrium Nocturnal leg cramps Recurrent headache Upper back pain on right side Migraine with aura Surgical History No pertinent past surgical history Family History Family History Father Heart disease Mother Diabetes mellitus HTN (hypertension) CVD (cardiovascular disease) Maternal Aunt Diabetes mellitus History of CVA (cerebrovascular accident) Brother No problems noted. Brother No problems noted. Brother No problems noted. Sister No problems noted. Sister No problems noted. Social History Social History Housing: Apartment Unable to assess alcohol history related to: Unknown Alcohol intake: never Patient Tobacco Use Status: Never used Tobacco e-Cigarette/Vaping Use: Never Used Use of substances other than those prescribed or required for medical reasons: Unknown Advance Directives: No Advance Directives Information Provided: No Do you have a plan to hurt others: No Plan service: No Current occupational status: employed Sexual orientation: Straight/Heterosexual Gender identity: Female Cognitive needs: No Hearing needs: No Vision needs: No Physical Exam ED Vital Signs: Vital Signs - 24 hr 04/13/25 15:23 04/13/25 18:06 04/13/25 20:22 Temperature 97.6 F 97.5 F 98.1 F Pulse Rate 89 83 74 Respiratory Rate 16 14 16 Blood Pressure 126/83 123/75 105/58 L Pulse Oximetry 98 100 99 Oxygen Delivery Method Room Air Room Air Room Air 04/13/25 20:34 04/13/25 20:49 04/13/25 22:00 Temperature 97.9 F 98.0 F 98.7 F Pulse Rate 70 71 79 Respiratory Rate 18 18 16 Blood Pressure 117/71 119/80 123/78 Pulse Oximetry 98 Oxygen Delivery Method Room Air 04/13/25 23:39 Temperature 98.2 F Pulse Rate 71 Respiratory Rate 14 Blood Pressure 119/80 Pulse Oximetry Oxygen Delivery Method BMI result Body Mass Index 20.2 CONSTITUTIONAL: The patient appears non-toxic, well nourished and in no acute distress. Vital signs as documented. HEAD: Atraumatic, normocephalic. EYES: EOMs grossly intact, pupils equal, conjunctiva clear, no exudate. ENT: Nares patent, no discharge. Airway patent, no audible stridor, visible mucosa is pink and moist without noted lesions. NECK: Trachea is midline, no obvious masses or gross abnormalities. CHEST: Symmetric movement, normal appearance. LUNGS: LS present and CTAB, no w/r/r. Non-labored work of breathing. CARDIAC: Regular Rhythm, S1/S2 appreciated, no murmurs, rubs or gallops. ABDOMEN: Abdomen soft and non-tender x4 quadrants, no palpable masses or organomegaly. : Deferred. EXTREMITIES: Normal tone, moves all extremities spontaneously without reported pain. No obvious acute injury or deformity noted. NEURO: Alert and oriented x3, CN II-XII appear grossly intact. Cerebellar Functioning grossly intact. No obvious sensory or motor deficits. Speech clear and appropriate. PSYCH: normal affect, appropriate eye contact, fluid speech, with appropriate response to questioning. No reported suicidality or homicidality. SKIN: Warm, dry, color appropriate, normal turgor. No rashes noted. Course Course Course Narrative: This is an RME: Additional HPI, ROS, PE not included below will be deferred to primary provider. RME assessment and note performed by: Ariadne Bauer PA-C This is a [id number] who presents to the ER with a complaint of dizziness since 04/09. Reports symptoms are dizziness, nausea, vomiting, generalized weakness. No abdominal pain. LMP was 04/02. Was told her iron was low she she needed to immediately come to the ED for an iron infusion. Plan: Labs, further Er eval needed Medical Decision Making Medical Decision Making MDM Narrative: 7:26 PM 04/13/2025: Patient is a 34-year-old female presenting to the ED for weakness with dizziness after experiencing prolonged and heavy menses since IUD was placed last year. Patient found at urgent care to have low H&H, sent to the ED for evaluation and management. In the ED patient is hemodynamically stable, however H&H redemonstrates significant anemia with hemoglobin 7.2 and hematocrit 25.5. Patient is not actively bleeding however is symptomatic, indicating transfusion. Patient reports she was sent to the ED for iron infusion however patient was anemia is more likely secondary to menorrhagia, will give 2 units packed red blood cells and observe for a short period following completion of transfusion to ensure no transfusion reaction. Following observation period the patient will be discharged with referral to OBGYN and Hematology to discuss replacement of IUD versus iron supplementation. 1:22 AM 04/14/2025: The patient's transfusions completed approximately 45 minutes ago. We will continue to monitor for transfusion reaction and pending no reaction we will plan for discharge as previously described. 2:18 AM 04/14/2025: Patient continues to feel well, no signs of transfusion reaction. Patient is requesting discharge home. Will discharge with follow up with PCP, OBGYN, and Hematology. Admission/Observation Consideration of admission/observation: Escalation of care including admission/observation considered Lab Data MDM Lab Attestation statement: I reviewed the patient's lab results. 04/13/25 16:04 04/13/25 16:04 Labs: Lab Results 04/13/25 04/13/25 Range/Units 16:04 19:20 WBC 5.1 (4.8-10.8) X10*3/uL RBC 4.26 (4.20-5.50) X10*6/uL Hgb 7.2 L D (12.0-16.0) g/dl Hct 25.5 L D (37.0-47.0) % MCV 59.9 L (80.0-98.0) fL MCH 16.9 L (27.0-33.0) pg MCHC 28.2 L (31.0-35.0) g/dl RDW 21.7 H (11.0-16.0) % Plt Count 286 D (160-400) X10*3/uL MPV Not Reportable Immature Gran % (Auto) Cancelled Neut % (Auto) Cancelled Lymph % (Auto) Cancelled [place] % (Auto) Cancelled Eos % (Auto) Cancelled Baso % (Auto) Cancelled Lymph # (Auto) Cancelled [place] # (Auto) Cancelled Eos # (Auto) Cancelled Baso # (Auto) Cancelled Abs Immat Gran (auto) Cancelled Absolute Neuts (auto) Cancelled Absolute Nucleated RBC 0.000 (0.0-0.012) X10*3/uL Nucleated RBC % (auto) 0.0 (0.0-0.2) /100WBC Neutrophils % (Manual) 70 (45-73) % Band Neutrophils % 0 L (3-5) % Lymphocytes % (Manual) 25 (20-40) % Monocytes % (Manual) 2 (2-11) % Eosinophils % (Manual) 2 (0-4) % Basophils % (Manual) 1 (0-2) % Abs Neuts (Manual) 3.6 (2.0-8.3) X10*3/uL Lymphocytes # (Manual) 1.3 (1.2-4.9) X10*3/uL Monocytes # (Manual) 0.1 (0.1-1.2) X10*3/uL Eosinophils # (Manual) 0.1 (0.0-0.4) X10*3/uL Basophils # (Manual) 0.1 (0.0-0.2) X10*3/uL Platelet Estimate NORMAL (NORMAL) Plt Morphology Comment NORMAL RBC Morphology NOTED Microcytosis 3+ (>30) /OIF Smear Tech's Comments MANUAL DIFF Sodium 140 (135-145) mmol/L Potassium 4.1 (3.3-5.1) mmol/L Chloride 109 H (96-108) mmol/L Carbon Dioxide 24 (22-29) mmol/L Anion Gap 11 L (12-20) BUN 11 (9-16) mg/dL Creatinine 0.57 (0.5-1.4) mg/dL Estim Creat Clear Calc 123.3 Estimated GFR > 60 Random Glucose 80 (60-115) mg/dL Calcium 9.1 D (8.4-10.2) mg/dL Magnesium 1.9 (1.6-2.6) mg/dL Iron 9 L (30-160) mcg/dL TIBC 411 (228-428) mcg/dL % Saturation 2 L (15-50) % Unsat Iron Binding 402 ug/dL Total Bilirubin 0.4 (0.0-1.0) mg/dL Direct Bilirubin 0.1 (0.0-0.5) mg/dL AST 22 (5-31) U/L ALT 19 (0-31) U/L Alkaline Phosphatase 73 (39-117) U/L Total Protein 7.6 (6.5-8.0) g/dL Albumin 4.5 (3.5-5.0) g/dL Beta HCG, Quant < 2 mIU/mL Blood Type O Positive Antibody Screen NEGATIVE Crossmatch See Detail External Record Review External record reviewed: Outpatient record Prescription Management I considered prescription management with: Pain Medication Discharge Plan Discharge Clinical Impression: Acute anemia Patient Disposition: Home, Self-Care Instructions: Anemia (ED) Additional Instructions: Thank you for choosing [facility]'s Emergency Department for your care today. Your blood counts today were low, this is likely secondary to your heavy and prolonged periods since placement of her IUD. Your vital signs have been stable throughout her ED course and you have had no active bleeding while here in the ED. As such, at this time there is no evidence of an acute process requiring admission to the hospital or continued ED observation, and it is safe to discharge you home. Is extremely important he follow up with your OBGYN and child nutrition assistant for re-evaluation and consideration of replacement of your IUD or other management of your anemia. Please contact your OBGYN and child nutrition assistant's offices tomorrow to schedule follow-up referral appointments. Please also follow up with your primary care physician for re-evaluation, additional management of your symptoms, and continued preventative care. If you do not have a primary care physician, please call the [facility] at [phone] to establish a new primary care physician. While waiting to establish your new primary care physician, you can call our Walk-in [facility] at [phone] for non-emergency needs. Please return to the emergency department if you develop a severe or sudden change in your symptoms, a fever over 100.4 that does not improve with Tylenol or Ibuprofen, recurrent vomiting, or any other new or worsening symptoms or concerns. Prescriptions: No Action ferrous sulfate 325 mg (65 mg iron) tablet,delayed release (DR/EC) 325 mg PO DAILY 90 Days Qty: 90 1RF ParaGard T 380A 380 square mm intrauterine device intrauterine Referrals: Rochelle Robles MD [Primary Care Provider, Internal Medicine] Clinical Impression: Acute anemia Ishan Jones MD [Physician, Hematology & Oncology] Clinical Impression: Acute anemia Patience Del Rio CNM [Certified Nurse Cryptologic Technician Operator/Analyst, BEAM DEPARTMENT SUPERVISOR] Clinical Impression: Acute anemia Print Language: Fijian
[2025-04-13 16:27] LABS: Hematocrit 25.5 % (37.0-47.0); Hemoglobin 7.2 g/dl (12.0-16.0); Mean Corpuscular HGB Conc 28.2 g/dl (31.0-35.0); Mean Corpuscular Hemoglobin 16.9 pg (27.0-33.0); PLT CLUMP 1; Red Blood Count 4.26 X10*6/uL (4.20-5.50); Red Cell Distribution Width 21.7 % (11.0-16.0)
[2025-04-13 16:33] LABS: Mean Corpuscular Volume 59.9 fL (80.0-98.0)
[2025-04-13 16:42] LABS: Alanine Aminotransferase 19 U/L (0-31); Albumin Level 4.5 g/dL (3.5-5.0); Alkaline Phosphatase 73 U/L (39-117); Anion Gap 11 (12-20); Aspartate Amino Transferase 22 U/L (5-31); Bilirubin Direct 0.1 mg/dL (0.0-0.5); Bilirubin Total 0.4 mg/dL (0.0-1.0); Blood Urea Nitrogen 11 mg/dL (9-16); Calcium 9.1 mg/dL (8.4-10.2); Carbon Dioxide 24 mmol/L (22-29); Chloride 109 mmol/L (96-108); Creatinine Clr Calc Pharmacy 123.3; Estimated Glomerular Filt Rate > 60; Glucose Random 80 mg/dL (60-115); Iron 9 mcg/dL (30-160); Magnesium 1.9 mg/dL (1.6-2.6); Percent Iron Saturation 2 % (15-50); Potassium 4.1 mmol/L (3.3-5.1); Sodium 140 mmol/L (135-145); Total Iron Binding Capacity 411 mcg/dL (228-428); Total Protein 7.6 g/dL (6.5-8.0); Unsaturated Iron Binding 402 ug/dL
[2025-04-13 16:51] LABS: HCG Quantitative < 2 mIU/mL
[2025-04-13 17:14] LABS: SLIDE REVIEW MANUAL DIFF
[2025-04-13 17:21] LABS: Basophils Percent Manual 1 % (0-2); Eosinophils Percent Manual 2 % (0-4); Lymphocytes Percent Manual 25 % (20-40); Monocytes Percent Manual 2 % (2-11); Neutrophils Percent Manual 70 % (45-73)
[2025-04-13 17:30] LABS: Microcytosis 3+ (>30) /OIF
[2025-04-13 17:31] LABS: Band Neutrophils Percent 0 % (3-5); Platelet Estimate NORMAL (NORMAL); Platelet Morphology Comment NORMAL; RBC Morphology NOTED
--- NOTE | 2025-04-13 17:55 | PC.NURSE ---
Initial contact with pt. pt resting comfortably on stretcher. pt irritated by wait time. states I feel like I'm just waiting here for nothing, my needs to go to work, I need to go get the baby and if they don't give iron infusions here there is no point in waiting. pt educated regarding ER process. awaiting MD benítez.
[2025-04-13 19:15] LABS: Basophils Abs Manual 0.1 X10*3/uL (0.0-0.2); Eosinophils Absolute Manual 0.1 X10*3/uL (0.0-0.4); Lymphocytes Absolute Manual 1.3 X10*3/uL (1.2-4.9); Monocytes Absolute Manual 0.1 X10*3/uL (0.1-1.2); Neutrophils Absolute Manual 3.6 X10*3/uL (2.0-8.3); Platelet Count 286 X10*3/uL (160-400); White Blood Count 5.1 X10*3/uL (4.8-10.8)
--- NOTE | 2025-04-13 19:22 | PC.NURSE ---
20 G IV line established in R AC. Patient denies any pain/discomfort at present. Patient currently on the phone talking to her family. Call prather within patint's reach.
--- OUTSIDE RECORDS SUMMARY | 2025-04-13 19:54 | XMS_ITS | Clinical Summary ---
Author Organization [facility] Address [address] [place] [address] Care Team Providers Care Contact Assembler Name Role Phone Unavailable Primary Care Provider Unavailabl e Social History Tobacco Use Types Packs/Day Years Used Date Smoking Tobacco: Never Assessed Comments Unknown Sex and Gender Information Value Date Recorded Sex Assigned at Not on file Legal Sex Female 8:29 AM EST Gender Identity Not on file Sexual Orientation Not on file Plan of Treatment Health Maintenance Due Date Last Done Comments DTaP,Tdap,and Td Vaccines (1 - Tdap) 2008 Hepatitis B Vaccines (1 of 3 - 19+ 3-dose series) 2008 Cervical Cancer Screening: P ap Smear 2010 COVID-19 Vaccine ( - 2023-2 5 season) 2024 Influenza Vaccine (Season Ended) 2025 HIB Vaccines Aged Out No longer eligi ble based on patient's age to complete this topic HPV Vaccines Aged Out No longer eligi ble based on patient's age to complete this topic Hepatitis A Vaccines Aged Out No long er eligible based on patient's age to complete this topic IPV Vaccines Aged Out No longer eligi ble based on patient's age to complete this topic MMR Vaccines Aged Out No longer eligi ble based on patient's age to complete this topic Meningococcal ACWY Vaccine Aged Out N o longer eligible based on patient's age to complete this topic Meningococcal B Vaccine Aged Out No l onger eligible based on patient's age to complete this topic Pneumococcal Vaccine: Pediat rics (0 to 5 Years) and At-Risk Patients (6 to 64 Years) Aged Out No longer eligible b ased on patient's age to complete this topic RSV Immunization Patients Un rachid 20 months Aged Out No longer eligible b ased on patient's age to complete this topic Varicella Vaccines Aged Out No longer eligible based on patient's age to complete this topic
--- NOTE | 2025-04-13 20:49 | PC.NURSE ---
1 unit of PRBC hung and infusing w/o issues via 20 G in R AC, patient tolerating transfusion well, no adverse reactions noted/reported by patient. Call prather within patient's reach, plan of care ongoing.
--- NOTE | 2025-04-13 23:24 | PC.NURSE ---
Blood transfusion of 1 unit of PRBC infused, patient tolerated well, VSS,.
[2025-04-14 02:19] VITALS: BP 112/72; PULSE 71; RESP 14; TEMP 36.2
[2025-04-14 02:39] VITALS: BP 112/72; PULSE 71; RESP 14; TEMP 36.2
== END 2025-04-14 02:40 | disposition home or self-care (01) ==
PROVIDERS: Physician Assistant Medical; Emergency Provider Internal Medicine; PCP Internal Medicine
DX: D64.9 Anemia, unspecified (principal); R79.89 Other specified abnormal findings of blood chemistry; N92.0 Excessive and frequent menstruation with regular cycle; R53.1 Weakness; R10.2 Pelvic and perineal pain; R11.2 Nausea with vomiting, unspecified; Z79.899 Other long term (current) drug therapy
CPT/HCPCS: 36415; 36430; 80048; 80076; 83540; 83735; 84702; 85007; 85025; 85027; 86850; 86900; 86901; 86923; 99284; 99285; P9016

== ENCOUNTER 2025-04-18 09:13 | Outpatient (AMB) | payer OTHER, SELFPAY ==
[2025-04-18 09:15] VITALS: BP 94/60; BMI 20.3
--- NOTE | 2025-04-18 09:15 | A.OFFVIS_ITS ---
Vital Signs 04/18/25 09:15 Height 5 ft 6 in Weight 126 lb BMI 20.3 BP 94/60 Intake Visit Reasons: bleeding with paragard Packer Operator Automatic: Packer Operator Automatic Present (Rebeca) Allergies cyclobenzaprine Adverse Reaction (Unknown, Verified 04/18/25 09:22) dry mouth and vertigo Is last menstrual period known: Yes Last menstrual period: 04/02/25 HPI Comments Details: Patient is here today follow up for AUB, history of recent transfusion of 1 unit. Labs on 04/13/2025 7.2/25.5. Bleeding has stopped. History of ParaGard IUD with long cycles and AUB-EMB May 2024 negative. History of migraines with aura. Prefers not to have any hormones at all. Considering condom use, tubal ligation in the future but uncertain if she wants another . [facility] Medical History Abnormal uterine bleeding (AUB) Thickened endometrium Nocturnal leg cramps Recurrent headache Upper back pain on right side Migraine with aura Surgical History No pertinent past surgical history Family History Father Heart disease Mother Diabetes mellitus HTN (hypertension) CVD (cardiovascular disease) Maternal Aunt Diabetes mellitus History of CVA (cerebrovascular accident) Brother No problems noted. Brother No problems noted. Brother No problems noted. Sister No problems noted. Sister No problems noted. Social History Housing: Apartment Unable to assess alcohol history related to: Unknown Alcohol intake: never Patient Tobacco Use Status: Never used Tobacco e-Cigarette/Vaping Use: Never Used service: No Current occupational status: employed Sexual orientation: Straight/Heterosexual Gender identity: Female Cognitive needs: No Hearing needs: No Vision needs: No Female Reproductive History Menstrual Age of Menarche: 15 Date of last menstrual period: 04/02/25 Review of Systems Const All systems reviewed & are unremarkable except as noted in HPI and below Physical Exam Vital Signs: Last Vital Signs BP 94/60 04/18/25 09:15 BMI result Body Mass Index 20.3 Const General: cooperative, healthy appearing and no acute distress Orientation/consciousness: patient oriented x3 GI Inspection: Yes normal to inspection Palpation (GI): Soft to palpation and Other GI palpation findings present (Nontender) Rectal Exam - Female: visual inspection normal General: Yes bladder normal to palpation External Female Exam: normal appearance of the urethra Speculum Exam - Vagina: normal appearance of the vagina, normal palpation and normal vaginal discharge Speculum Exam - Cervix: normal appearance of the cervix, normal palpation and Other cervical findings present (IUD strings present at the os) Bimanual exam- vagina & uterus: normal bimanual exam, normal palpation, uterine size normal, bladder normal to palpation, normal palpation, uterine shape normal and non-tender Bimanual Exam- Adnexa, other: normal adnexae Neuro General: patient oriented x3 Results AMB Test Urine AMB Test Urine Negative Last Edit by HEIDI Parks on 04/18/25 09:28 Results Reviewed Results Reviewed: Laboratory Last Values Tst Clinic Negative 04/18/25 09:27 Assessment & Plan Assessment & Plan (1) Abnormal uterine bleeding (AUB): Code(s): N93.9 - Abnormal uterine and vaginal bleeding, unspecified Category: Medical (2) General counseling and advice on contraceptive management: Code(s): Z30.09 - Encounter for other general counseling and advice on contraception Plan: Counseled regarding control products available without estrogen. Recommended the Mirena IUD. She would like to review the literature and co nsider her options. Booklet provided for review. The patient expressed understanding and agreement with the plan of care. All of her questions and concerns were addressed to the best of my ability. Plan Counseled regarding workup for AUB to include CBC, TSH, pelvic ultrasound. Plan follow up possible Mirena w/the ultrasound follow up. EMB if indicated. Advised to call if there is any heavy or prolonged bleeding episodes. Total time I personally spent on visit and management today: ?30 minutes. Time spent included review of pertinent office notes in the electronic health record; review of laboratory and imaging results; review of personal family medical history; performing physical exam; discussing diagnosis and plan of care with the patient; documenting the encounter in the EMR.The patient expressed understanding and agreement with the plan of care. All of her questions and concerns were addressed to the best of my ability. This note is constructed using voice recognition software. While every effort has been made to ensure accuracy, residential treatment specialist errors may have been included. Orders: Orders AMB HCG Urine Test Today N93.9 - Abnormal uterine and vaginal bleeding, unspecified Bacterial Vaginosis Panel Today N93.9 - Abnormal uterine and vaginal bleeding, unspecified US pelvic and transvaginal Today N93.9 - Abnormal uterine and vaginal bleeding, unspecified Complete Blood Count no Diff Today N93.9 - Abnormal uterine and vaginal bleeding, unspecified CT NG by PCR Vag/Cerv Today N93.9 - Abnormal uterine and vaginal bleeding, unspecified Thyroid Stimulating Hormone Today N92.1 - Excessive and frequent menstruation with irregular cycle, N93.9 - Abnormal uterine and vaginal bleeding, unspecified Coding Level of Care Code Est Pt Level 3 (25179) Diagnoses Abnormal uterine bleeding (AUB) N93.9 General counseling and advice on contraceptive management Z30.09
--- OUTSIDE RECORDS SUMMARY | 2025-04-18 09:46 | XMS_ITS | Clinical Summary ---
Author Organization [facility] Address [address] [place] [address] Care Team Providers Care Rug Backing Stenciler Name Role Phone Unavailable Primary Care Provider [...]
== END 2025-04-18 10:18 | disposition home or self-care (01) ==
LOC: HO.HWS 09:13
PROVIDERS: PCP Internal Medicine; Visit Provider Advanced Practice Midwife
DX: N93.9 Abnormal uterine and vaginal bleeding, unspecified (principal); Z30.09 Encounter for other general counseling and advice on contraception
CPT/HCPCS: 99213

== ENCOUNTER 2025-04-18 09:13 | Outpatient (REF) | payer OTHER, SELFPAY | END 2025-04-18 09:14 | disposition home or self-care (01) | LOC: HO.LAB 09:13 | PROVIDERS: PCP Internal Medicine; Visit Provider Advanced Practice Midwife | DX: N93.9 Abnormal uterine and vaginal bleeding, unspecified (principal) | CPT/HCPCS: 81025 ==

== ENCOUNTER 2025-04-18 09:57 | Outpatient (REF) | payer OTHER, SELFPAY ==
[2025-04-19 13:40] LABS: CT PCR NOT DETECTED (Not Detect.); NG PCR NOT DETECTED (Not Detect.)
[2025-04-19 14:10] LABS: Bacterial Vaginosis PCR NEGATIVE (Negative); Candida Group PCR NOT DETECTED (Not Detect); Candida glab krusei PCR NOT DETECTED (Not Detect); Trichomonas vaginalis PCR NOT DETECTED (Not Detect)
== END 2025-04-18 09:58 | disposition home or self-care (01) ==
LOC: HO.LNP 09:57
PROVIDERS: Visit Provider Advanced Practice Midwife
DX: N93.9 Abnormal uterine and vaginal bleeding, unspecified (principal)
CPT/HCPCS: 81515; 87491; 87591

== ENCOUNTER 2025-04-18 11:02 | Outpatient (REF) | payer OTHER, SELFPAY ==
--- NOTE | ~2025-04-18 | US_ITS ---
EXAMINATION: US PELVIS TRANSABDOMINAL AND TRANSVAGINAL HISTORY: N93.9 - Abnormal uterine and vaginal bleeding, unspecified COMPARISON: Comparison is made with the prior examination dated 07/07/2024. TECHNIQUE: Transabdominal and endovaginal real-time 2D edwards-scale ultrasound was performed. FINDINGS: Uterus: The uterus is normal in size, measuring 9.1 x 4.5 x 5.3 cm. Myometrium has a normal echotexture. No fibroids are identified. Endometrium: The endometrial stripe measures 15 mm in thickness. An IUD is noted in appropriate position in the endometrial canal. There are nabothian cysts in the cervix. Right ovary: The right ovary measures 3.2 x 2.6 x 1.5 cm. The right ovary is normal in size and echotexture. Left ovary: The left ovary measures 3.8 x 3.3 x 3.2 cm. The left ovary is normal in size and echotexture. There is a simple cyst versus follicle measuring 3.0 x 2.3 x 2.6 cm. Pelvic fluid: none. US/US pelvic and transvaginal IMPRESSION: 1. IUD in appropriate position in the endometrial canal. 2. Simple cyst versus dominant follicle in the left ovary measuring 3.0 x 2.3 x 2.6 cm. Electronically signed by: Oneal Carbajal MD 04/18/2025 01:37 PM EDT
[2025-04-18 11:41] LABS: Hematocrit 28.0 % (37.0-47.0); Hemoglobin 8.0 g/dl (12.0-16.0); Mean Corpuscular HGB Conc 28.6 g/dl (31.0-35.0); Mean Corpuscular Hemoglobin 18.2 pg (27.0-33.0); NRBC Abs Auto 0.000 X10*3/uL (0.0-0.012); NRBC Pct Auto 0.0 /100WBC (0.0-0.2); Platelet Count 227 X10*3/uL (160-400); Red Blood Count 4.39 X10*6/uL (4.20-5.50); White Blood Count 3.9 X10*3/uL (4.8-10.8)
[2025-04-18 11:42] LABS: Mean Corpuscular Volume 63.8 fL (80.0-98.0)
[2025-04-18 12:22] LABS: Thyroid Stimulating Hormone 2.60 uIU/mL (0.32-4.0)
== END 2025-04-18 11:03 | disposition home or self-care (01) ==
LOC: HO.US 11:02
PROVIDERS: PCP Internal Medicine; Visit Provider Advanced Practice Midwife
DX: N93.9 Abnormal uterine and vaginal bleeding, unspecified (principal); N92.1 Excessive and frequent menstruation with irregular cycle
CPT/HCPCS: 36415; 76830; 76856; 84443; 85027

== ENCOUNTER → 2025-04-18 12:26 | Outpatient (BNV) | payer OTHER, SELFPAY | PROVIDERS: PCP Internal Medicine; Visit Provider Radiology Diagnostic Radiology | DX: N93.9 Abnormal uterine and vaginal bleeding, unspecified (principal) | CPT/HCPCS: 76830; 76856 ==

== ENCOUNTER 2025-07-20 13:38 | Outpatient (REF) | payer OTHER, SELFPAY ==
[2025-07-20 15:13] LABS: Hemoglobin 12.2 g/dl (12.0-16.0); NRBC Abs Auto 0.000 X10*3/uL (0.0-0.012); NRBC Pct Auto 0.0 /100WBC (0.0-0.2)
[2025-07-20 15:15] LABS: Hematocrit 38.1 % (37.0-47.0); Mean Corpuscular HGB Conc 32.0 g/dl (31.0-35.0); Mean Corpuscular Hemoglobin 22.5 pg (27.0-33.0); Mean Corpuscular Volume 70.2 fL (80.0-98.0); Platelet Count 171 X10*3/uL (160-400); Red Blood Count 5.43 X10*6/uL (4.20-5.50); White Blood Count 5.3 X10*3/uL (4.8-10.8)
[2025-07-20 15:25] LABS: PLT ABN DIST 1
[2025-07-21 08:14] LABS: Bacterial Vaginosis PCR POSITIVE (Negative); Candida Group PCR DETECTED (Not Detect); Candida glab krusei PCR NOT DETECTED (Not Detect); Trichomonas vaginalis PCR NOT DETECTED (Not Detect)
== END 2025-07-20 13:39 | disposition home or self-care (01) ==
LOC: HO.LAB 13:38
PROVIDERS: PCP Internal Medicine; Visit Provider Advanced Practice Midwife
DX: N93.9 Abnormal uterine and vaginal bleeding, unspecified (principal); Z20.2 Contact with and (suspected) exposure to infections with a predominantly sexual mode of transmission; Z30.432 Encounter for removal of intrauterine contraceptive device
CPT/HCPCS: 36415; 58301; 81515; 85027

== ENCOUNTER 2025-07-20 13:38 | Outpatient (AMB) | payer OTHER, SELFPAY ==
--- NOTE | 2025-07-20 13:42 | A.OFFVIS_ITS ---
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 She regrets having the ParaGard placed after childbirth, as she has never had abnormal menstrual bleeding in the past. She request her IUD to be removed today, she feels as see cause of all her symptoms with bleeding problems. She is not interested in a Mirena IUD and would like to watch her menstrual cycle and use the calendar method, in other nonhormonal options for prevention. 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 Her cause for concern was a ingrown hair, and is upset that she was misdiagnosed and the information remained in her chart. [facility] Medical History Abnormal uterine bleeding (AUB) Thickened endometrium Nocturnal leg cramps Recurrent headache Upper back pain on right side Migraine with aura Surgical History No pertinent past surgical history Family History Father Heart disease Mother Diabetes mellitus HTN (hypertension) CVD (cardiovascular disease) Maternal Aunt Diabetes mellitus History of CVA (cerebrovascular accident) Brother No problems noted. Brother No problems noted. Brother No problems noted. Sister No problems noted. Sister No problems noted. Social History Housing: Apartment Alcohol intake: never Patient Tobacco Use Status: Never used Tobacco e-Cigarette/Vaping Use: Never Used service: No Current occupational status: employed Sexual orientation: Straight/Heterosexual Gender identity: Female Cognitive needs: No Hearing needs: No Vision needs: No Female Reproductive History Menstrual Age of Menarche: 15 Date of last menstrual period: 06/28/25 Review of Systems Const All systems reviewed & are unremarkable except as noted in HPI and below Physical Exam Vital Signs: BMI result Body Mass Index 20.5 Const General: cooperative, healthy appearing and no acute distress Orientation/consciousness: patient oriented x3 GI Inspection: Yes normal to inspection Palpation (GI): Soft to palpation and Other GI palpation findings present (Nontender) Rectal Exam - Female: visual inspection normal General: Yes bladder normal to palpation External Female Exam: normal appearance of the urethra Speculum Exam - Vagina: normal appearance of the vagina, normal palpation and normal vaginal discharge Speculum Exam - Cervix: normal appearance of the cervix, normal palpation and Other cervical findings present (IUD strings at the os) Bimanual exam- vagina & uterus: normal bimanual exam, normal palpation, uterine size normal, bladder normal to palpation, normal palpation, uterine shape normal and non-tender Bimanual Exam- Adnexa, other: normal adnexae Neuro General: patient oriented x3 Office Procedures IUD Insert/Removal Details Details: The patient presents today for a IUD removal. ?She is planning to observe her cycles, and use other nonhormonal methods for prevention. She was counseled regarding the removal of her IUD. She was consented for the procedure along with anticipatory guidance for the removal and the consents form was signed. She desires to proceed with the IUD removal. IUD Removal Procedure: The patient was placed in the dorsal lithotomy position. A speculum was inserted vaginally and the cervix and strings were visualized at the os. A ring forcep was utilized, and the patient was asked to give a deep cough while the strings were grasped and gently tugged at the same time, removing the IUD device intact. Minimal bleeding was observed. All of the equipment was removed. The patient tolerated the procedure well and left the office in good condition. IUD Removal Information: You may have light bleeding for several days, tapering off to a brown or pink color. Mild cramping after removal is common. If not allergic, you may take an over the counter mild analgesic for the discomfort, such as Tylenol or Advil (use dosing and frequency per the manufacturers recommendations). Call the office if you experience: fever (over 100.4), flu like symptoms, abdominal or pelvic pain, foul smelling discharge or heavy bleeding. If not planning for a future , another form of control is recommended. Use of condoms for prevention of STI's is also recommended, if indicated. This note is constructed using voice recognition software. ?While every effort has been made to ensure accuracy, sheet folder errors may have been included. ? [id number] Removal Procedure code (CPT) selection complete Results Reviewed Results Reviewed: Surgical Pathology [id number] Name: Yuan JohnstonIndira Age/Sex: 33/F Attending: Patience Del Rio CNM : 1990 Submitted by: Patience Del Rio CNM Copies to: Rochelle Robles MD MR #: [id number] Status: DEP REF Collected: 06/16/24 Location: [facility] Received: 06/17/24 Diagnosis Endometrium, biopsy: Early secretory endometrium; no atypia or hyperplasia i dentified. Clinical History AUB, thickened endometrium Microscopic Description Microscopic sections reviewed. Material Received Endometrial biopsy Gross Description Received in formalin labeled ?endometrial biopsy? are multiple cylindrical portions of lozada-white and red- lozada soft tissue mixed with mucus and clotted blood forming an aggregate m easuring 3.1 x 2.7 x 0.3 cm in greatest dimension which is wrapped in lens paper and entirely submitted for microscopic examination, multiple pieces in cassettes A1 and A2. [facility] Copies To Rochelle Robles MD [facility] [place], [address] [id number] Patience Del Rio CNM [facility] [place] Women's Services [address] [place], [place] [id number] NOTE: Unless otherwise stated, all tissue is formalin-fixed and paraffin- embedded. Some or all of the immunohistochemical tests reported herein may have been developed and their performance characteristics determined by [facility]. They have not been cleared or approved by the U.S. Food and Drug Administration (FDA). However, the FDA has determined that such clearance or approval is not necessary. This laboratory is certified under the Clinical Laboratory Improvement Amendments of 1988 (CLIA) as qualified to perform high complexity clinical laboratory testing. Patient: Indira Paulino Age/Sex: 33/F MR#: [id number] Page 1 of 2 Surgical Pathology [id number] Electronically Signed By: J Luis Newell MD 06/22/24 7000 Patient: Indira Paulino Age/Sex: 33/F MR#: [id number] Page 2 of 2 Assessment & Plan Assessment & Plan (1) Abnormal uterine bleeding (AUB): Code(s): N93.9 - Abnormal uterine and vaginal bleeding, unspecified Category: Medical Plan: Discussed: Endometrial biopsy results- Diagnosis Endometrium, biopsy: Early secretory endometrium; no atypia or hyperplasia identified. (2) Encounter for IUD removal: Code(s): Z30.432 - Encounter for removal of intrauterine contraceptive device Plan: See procedure notes. IUD removed today. See procedure note. Monitor menstrual cycles, report any unscheduled bleeding, bleeding episodes <24 days apart or heavy/prolonged menstrual bleeding. Call the office for a follow up for any concerns. Use of a phone eben or paper calendar specific to menstrual cycling reviewed and demonstrated examples on the Internet. The patient expressed understanding and agreement with the plan of care. All of her questions and concerns were addressed to the best of my ability. 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 Information on the problem list was removed for correction today. The patient expressed understanding and agreement with the plan of care. All of her questions and concerns were addressed to the best of my ability. This note is constructed using voice recognition software. While every effort has been made to ensure accuracy, sheet folder errors may have been included. Orders: Orders Complete Blood Count no Diff 07/20/25 N93.9 - Abnormal uterine and vaginal bleeding, unspecified Bacterial Vaginosis Panel 07/20/25 N93.9 - Abnormal uterine and vaginal bleeding, unspecified Coding Level of Care Code Procedure Only Diagnoses Abnormal uterine bleeding (AUB) N93.9 Encounter for IUD removal Z30.432 CPT Codes Details - CPT: 28328-JRZ Removal ([id number])
[2025-07-20 13:44] VITALS: BMI 20.5
--- OUTSIDE RECORDS SUMMARY | 2025-07-20 15:07 | XMS_ITS | Clinical Summary ---
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 Name Role Phone Unavailable Primary Care Provider [...] Cervical Cancer Screening: P ap Smear 2010 HPV Vaccines (1 - 3-dose SCD M series) 2016 Depression Screening 2024 COVID-19 Vaccine ( - 2023-2 5 season) 2025 Influenza Vaccine (#1) 2025 RSV Immunization Adult Patie nts (1 - 1-dose 75+ series) 2064 HIB Vaccines Aged Out No longer eligi [...] 5 Years) and At-Risk Patients (6 to 49 Years) Aged Out No longer eligible b ased on patient's age to complete this topic RSV Immunization Patients Un rachid 20 months Aged Out No longer eligible b ased on patient's age to complete this topic Varicella Vaccines Aged Out No longer eligible based on patient's age to complete this topic
== END 2025-07-20 14:50 | disposition home or self-care (01) ==
LOC: HO.HWS 13:38
PROVIDERS: PCP Internal Medicine; Visit Provider Advanced Practice Midwife
DX: N93.9 Abnormal uterine and vaginal bleeding, unspecified (principal)
CPT/HCPCS: 58301